=== PATIENT | male | born 1945 | race Caucasian/White ===

== ENCOUNTER 2017-03-16 16:36 | Observation (INO) ==
[2017-03-16] MEDS ORDERED: CYANOCOBALAMIN MISC SCH (18:45)
[2017-03-16 18:56] LABS: MANUAL DIFF NEEDED? NO
[2017-03-16 19:08] LABS: BASO% 0.3 % (0.0-0.8); EOS# 0.18 X1000 (0.0-0.7); HEMOGLOBIN 10.3 g/dL (14.0-18.0); LYMPH# 1.52 X1000 (1.2-3.4); LYMPH% 25.5 % (20.5-51.1); MCH 31.8 PG (27-31); MCHC 31.2 g/dL (33-37); MCV 101.9 FL (81-99); MONO# 0.57 X1000 (0.11-0.59); MONO% 9.6 % (1.7-9.3); MPV 10.6 FL (7.4-10.4); NEUT% 61.6 % (42.2-75.2); PLT 148 X1000 (130-400); RBC 3.24 XMIL (4.7-6.1)
[2017-03-16 19:13] LABS: INR 1.08; PROTIME 11.4 Seconds (9.2-11.7)
[2017-03-16 19:20] LABS: ALLEN TEST YES; BE -1.6 mmoll (-3.0-3.0); BLOOD TYPE ARTERIAL; DRAW SITE R RADIAL; O2(CT) 15.2 mL/dL (15.0-23.0); PCO2(98.6) 45 mmHg (35-45); PO2(98.6) 74 mmHg (60-100); SAMPLE BLOOD; SAO2 96.9 % (95.0-100.0); THB 11.4 g/dL (11.5-17.4); pH(98.6) 7.34 (7.35-7.45)
[2017-03-16 19:21] LABS: MODALITY ROOM AIR
[2017-03-16 19:26] LABS: ALBUMIN 3.9 g/dL (3.5-5.0); CALCIUM 8.7 mg/dL (8.8-10.2); POTASSIUM 4.4 mmol/L (3.5-5.1); TOTAL BILIRUBIN 0.33 mg/dL (0.20-1.00); TOTAL PROTEIN 6.6 g/dL (6.3-8.3)
--- NOTE | 2017-03-16 19:42 | Diag Imaging Result Doc PS360 ---
EXAM: CHEST-2 VIEWS HISTORY: SOB TECHNIQUE: COMPARISON: 09/01/2016 FINDINGS: The lungs are well expanded. The heart is not enlarged. The vessels are not distended. There are no infiltrates. No pleural effusions. IMPRESSION: No acute abnormality. Electronically signed by Crispin Cobos 03/16/2017 7:39 PM
[2017-03-16] MEDS: PRAVACHOL PO SCH (20:50)
[2017-03-16] MEDS: CARDIZEM CD PO SCH (20:50)
[2017-03-16] MEDS: APRESOLINE PO SCH (20:50)
[2017-03-16] MEDS: LYRICA PO SCH (20:50)
[2017-03-16] MEDS: ELIQUIS PO SCH (20:51)
[2017-03-16] MEDS: LASIX IV SCH (20:51)
[2017-03-16] MEDS ORDERED: NORCO-10 PO ONE (21:00)
[2017-03-16] MEDS: HUMULIN R SUBQ SCH ×2 (21:40→21:41)
--- NOTE | 2017-03-16 22:31 | HISTORY AND PHYSICAL ---
CHIEF COMPLAINT: 1. Recurrent falls, sustained injuries to the knees, right abdomen, lower back, declining of activities of daily living. 2. Shortness of breath on exertion. 3. Paroxysmal nocturnal dyspnea, orthopnea. Swelling of feet. 4. Worsening of the kidney function tests. Creatinine was more than 3.4. 5. Increasing potassium 5.9. Given Kayexalate. HISTORY OF PRESENT ILLNESS: He is a 71-year-old white gentleman, had a physical done last week with abnormal lab results. He was given Kayexalate. He was brought in by the caregiver, so- called with above problems. He complains of dyspnea on exertion, PND, orthopnea. In my office he has elevated JVD with some crackles in the left base and swelling of feet. He was treated as an outpatient with increased Lasix and Kayexalate. Since then, he is feeling weak and family wants to be admitted to the hospital for monitoring diastolic heart failure as well as chronic kidney disease. He has a stage 4 chronic kidney disease. Needs further evaluation. As a result, he has been hospitalized. PAST MEDICAL HISTORY: Hypertension, gout, chronic kidney disease, hypothyroidism, chronic peripheral neuropathy, acid reflux disease, metabolic syndrome, type 2 diabetes, atrial fibrillation, osteoarthritis. PAST SURGICAL HISTORY: Back surgery 2001, cervical fusion, carpal tunnel syndrome on the left wrist. MEDICATIONS IN THE OFFICE: Allopurinol 100 two tablets daily, multivitamin 1 tablet daily, lisinopril 10 daily, hydralazine 10, 3 times daily, Ticlid was given, Lyrica 100 twice daily, omeprazole 20 daily, tramadol 50 t.i.d. ALLERGIES: Levaquin. SOCIAL HISTORY: . Retired. Lives in [place]. No smoking. No alcohol. FAMILY HISTORY: Mom of dementia at the age of 58. Father of liver cancer at 72. HEALTH MAINTENANCE: Flu vaccine 2015, pneumococcal vaccine 2012, tetanus 2014, last prostate exam February 2017, PSA February 2011, colonoscopy 2018. Last blood workup in my office, creatinine 3.4, potassium 6, BUN 66. A1c 6.1, PSA 1.9. Thyroid function tests were normal. Uric acid 9.1. REVIEW OF SYSTEMS: HEENT: No headache. No vision problem. No earache. No sore throat. Neck: No goiter. No lymphadenopathy. No bruit. Cardiopulmonary: No chest pain, shortness of breath, PND, orthopnea. Patient had cardioversion on 07/21/2016, for irregular heart beat. Last myocardial perfusion scan 2014 which was negative. Prior to that, last cardiac catheterization, moderate disease in the distal LAD 2012. GI: No nausea, vomiting, diarrhea from Kayexalate. : No history of hesitancy, frequency. Bladder scan revealed 62 mL. Extremities: Swelling of feet. Joint, has arthritis pain. Neurologic: No focal symptoms or weakness or slurring of speech. PHYSICAL EXAMINATION: VITAL SIGNS: Afebrile. Vitals are stable. Blood pressure is 180/105, 5 feet 11, 258 pounds. HEENT: Atraumatic, normocephalic. Pupils equal, react to light. EOMI noted. TMs are normal. Nose and throat within normal limits. NECK: Supple. No lymphadenopathy. No carotid bruit. CHEST: Bilateral air entry with rhonchi and rales in the left side. HEART: Sounds are regular. No murmurs. ABDOMEN: Belly is soft, obese, nontender. Good bowel sounds. RECTAL: Normal prostate. Heme-negative stool. EXTREMITIES: 2+ pedal edema in both legs. Joints, there are osteoarthritic changes noted. NEUROLOGIC: No obvious deficits noted. Speech is normal. INVESTIGATIONS: CBC: White cell count 5.9, hematocrit 33, platelets 148,000. PT 11, INR 1. ABG: PH is 9.34, pCO2 45, PO2 74, bicarb 23 on room air. SMA7: Sodium 142, potassium 4.4, chloride 105, BUN 36, creatinine 2.2, glucose 124. Troponin is normal. CRP is high. ProBNP 2600. Chest x-ray stable, elevation of left hemidiaphragm. EKG is pending. ASSESSMENT AND PLAN: 1. A 72-year-old white gentleman, admitted to the hospital with shortness of breath, swelling of legs with underlying intermittent atrial fibrillation and diastolic heart failure with underlying chronic kidney disease. Plan is fluid restrictions. 2. Intravenous Lasix. 3. Chronic kidney disease. Evaluate postvoid residual urine 60 mL, 24 hour urine for creatinine clearance and proteinuria. 4. Uncontrolled hypertension. The patient has been on Cardizem. Increase the hydralazine 50 t.i.d. and Lasix. 5. Vitamin D deficiency on cholecalciferol once daily. 6. History of gout, uric acid level 9.2, increase the Zyloprim 200 mg daily. 7. Type 2 diabetes on glipizide, well controlled. Follow up on sliding scale with insulin coverage. 8. Hypothyroidism. On Synthroid. 9. Hyperlipidemia. On Pravachol. 10. Chronic pain on Lyrica. 11. Paroxysmal atrial fibrillation. Currently in sinus. Continue on Cardizem and Eliquis. 12. Hyperkalemia. Recently given Kayexalate. Improving. Unable to tolerate COURTNEY inhibitors. We will follow up. cc: Mike Dudley MD
[2017-03-16 22:32] LABS: URINE MICRO REVIEW NEEDED? NO; URINE SOURCE VOIDED
[2017-03-16 22:34] LABS: BILIRUBIN URINE NEGATIVE (NEGATIVE); BLOOD URINE NEGATIVE (NEGATIVE); COLOR YELLOW; GLUCOSE URINE NEGATIVE (NEGATIVE); LEUKOCYTES URINE NEGATIVE (NEGATIVE); NITRITE URINE NEGATIVE (NEGATIVE); PROTEIN URINE TRACE mg/dL (NEGATIVE); SP GRAVITY URINE 1.006; TURBIDITY URINE CLEAR (CLEAR); UROBILINOGEN URINE NORMAL (NORMAL)
[2017-03-16 22:35] LABS: UR EPITHELIAL CELLS <10 /HPF (<10); URINE BACTERIA NEGATIVE /HPF; URINE RBC <10 /HPF (<10); URINE WBC <10 /HPF (<10)
[2017-03-17] MEDS: LASIX IV SCH ×2 (06:31→17:34)
[2017-03-17] MEDS: SYNTHROID PO SCH (06:31)
[2017-03-17] MEDS: HUMULIN R SUBQ SCH ×5 (06:45→21:45)
[2017-03-17] MEDS ORDERED: MEDROL DOSEPAK PO SCH (08:45)
[2017-03-17] MEDS ORDERED: APRESOLINE PO SCH (09:00)
[2017-03-17] MEDS ORDERED: ZYLOPRIM PO SCH (09:00)
[2017-03-17] MEDS: ELIQUIS PO SCH ×2 (09:20→19:55)
[2017-03-17] MEDS: VICON-C PO SCH (09:20)
[2017-03-17] MEDS: VITAMIN D PO SCH (09:20)
[2017-03-17] MEDS: LYRICA PO SCH ×3 (09:20→21:28)
[2017-03-17] MEDS: APRESOLINE PO SCH ×4 (09:20→21:28)
[2017-03-17] MEDS: ZYLOPRIM PO SCH (09:20)
--- NOTE | 2017-03-17 11:12 | EKG Report ---
Test Performed on : 03/17/2017 08:38:06 AM Test Reason : chest pain Blood Pressure : / mmHG Vent. Rate : 071 BPM Atrial Rate : 071 BPM P-R Int : 214 ms QRS Dur : 090 ms QT Int : 418 ms P-R-T Axes : 043 011 051 degrees QTc Int : 454 ms Sinus rhythm. with marked sinus arrhythmia. with 1st degree AV block. Otherwise normal ECG When compared with ECG of 02-SEP-2016 00:32, Sinus rhythm. has replaced Atrial flutter. Confirmed by Gurpreet Boss DO ([id number]) on 03/19/2017 1:12:17 PM
[2017-03-17] MEDS: NORCO-5 PO PRN ×2 (11:46→19:52)
[2017-03-17] MEDS: MEDROL PO SCH ×4 (11:50→21:28)
--- NOTE | 2017-03-17 18:04 | CONSULTATION ---
DATE OF CONSULTATION: 03/17/2017 REASON FOR ADMISSION: Multiple falls, shortness of breath, PND, hyperkalemia. REASON FOR CONSULTATION: Acute on chronic kidney disease. CONSULTING PHYSICIAN: Dr. Dudley. HISTORY OF PRESENT ILLNESS: This is an 72-year-old gentleman known to our service for chronic kidney disease stage 3 with a baseline creatinine of 2.3 now for at least 3 years. He was last seen in our office in February of this year. At that time his creatinine was 2.3. He did have an elevated potassium that was thought perhaps to supplement use. That was discontinued. He was placed on a potassium reduction diet. He was to have follow-up labs within a couple of weeks. Apparently he did have a follow-up labs at his primary care's office and potassium was still 5.9. He was treated with Kayexalate at that time. In the last couple of weeks he has been having issues with dyspnea on exertion, PND, and orthopnea, along with some worsening edema to his lower extremities. He had been treated as an outpatient by increasing his Lasix. He continued to have weakness and had begun having several falls over the last several days. Because of this, the family brought him in to the hospital for further workup and treatment. He was found to have some diastolic heart failure and underlying chronic kidney disease. He was admitted to the hospital for further workup and treatment. This morning, the patient's creatinine remains at 2.2. He states that his breathing is much improved. He still continues to have some swelling to the lower extremities although this has improved since admission. He denies any other chest pain. Continues to have just mild shortness of breath. He is on a routine nasal cannula at this time. No other change in bowel or bladder output. PAST MEDICAL HISTORY: 1. Hypertension. 2. Gout. 3. Chronic kidney disease stage 3 with a baseline creatinine of 2.3 with a high of 3.1 over the last 3 years. His last creatinine was 2.3 within the last 4 weeks. 4. Hypothyroidism. 5. Chronic peripheral neuropathy. 6. Acid reflux disease. 7. Metabolic syndrome. 8. Type 2 diabetes. 9. Atrial fibrillation. 10. Osteoarthritis. 11. Diastolic heart failure. PAST SURGICAL HISTORY: 1. Back surgery, cervical fusion. 2. Carpal tunnel syndrome, treated, to the left wrist. ALLERGIES: Levaquin. MEDICATIONS: Home medications are listed as: 1. Allopurinol. 2. Lisinopril. 3. Hydralazine. 4. Cardizem. 5. Glipizide. 6. Eliquis. 7. Lyrica. 8. Omeprazole. 9. Tramadol. 10. Multivitamin. FAMILY HISTORY: Dementia and liver cancer. SOCIAL HISTORY: He is . No smoking. No ETOH or illicit drug use. He is independent. REVIEW OF SYSTEMS: Positive for orthopnea, PND, shortness of breath, increased lower extremity edema. Negative otherwise. PHYSICAL EXAMINATION: Vital Signs: Temperature 97.5 degrees, pulse 70, respiratory rate 18, blood pressure 123/74. Intake was not measured. Output has been 1 L since admission. General: This is an elderly gentleman sitting up on the side of the bed. He is awake and alert. No acute distress. He is able to give an appropriate history and assists with exam. HEENT: Normocephalic, atraumatic. JHOAN, conjunctivae are pink. His oral mucosa is moist. Neck: Supple. Trachea midline. He has a trace JVD. Cardiovascular: Regular rate and rhythm. There is no murmur or gallop appreciated. Pulmonary: He has equal excursion. He has some rales bilaterally. There is no wheeze noted. He remains on O2 supplementation via nasal cannula. He has no increased work of breathing during conversation. Abdomen: Soft, with positive bowel sounds. Nontender. : Not inspected. He is voiding. Extremities: He has 2 + pretibial edema. He has greater dependent edema pedal bilaterally. He has vascular changes noted to the legs. He is moving all extremities and has been ambulatory with assistance. Integument: Skin is pale, warm and dry. There are no rashes noted. He has no weeping noted to the edema. Neuro: Grossly nonfocal. LAB DATA: WBC of 5.9, hemoglobin 10.3, hematocrit 33.0, platelet count 148, 000. Sodium 142, potassium 4.4, CO2 24, BUN 36, creatinine 2.2. Calcium 8.7, albumin 3.9. He had a urinalysis that was negative aside for some trace protein. IMAGING: His chest x-ray this morning was stable with elevation of the left hemidiaphragm. ASSESSMENT AND PLAN: 1. Chronic kidney disease. The patient's creatinine is currently at his historical baseline. He has no indication for intervention at this time. We agree with his current therapy. We will continue to monitor his labs daily. 2. Diastolic heart failure. The patient has been on Lasix. Continue fluid restriction. 3. Hyperkalemia. His potassium is in target today. His COURTNEY inhibitors have been held. Likely he will have to utilize a different antihypertensive in the future secondary to his issues as an outpatient with hyperkalemia on this drug. We will continue to hold potassium supplements as well. 4. Electrolytes, acid-base balance. These are acceptable. 5. Anemia. He does have some trace anemia with a hemoglobin of 10.3. Check iron stores if that has not been done. 6. Hypertension, currently controlled. 7. Fluid volume. We will ask for strict I's and O's. Seen, data reviewed, discussed with Kg Johnson on 03/17/17. I agree with the above assessment and plan of care. rg Dictated by TARA Livingston for Jus Villarreal MD cc: MD Mike Briceno MD [facility]
[2017-03-17] MEDS: CARDIZEM CD PO SCH ×2 (19:56→21:27)
[2017-03-17] MEDS: PRAVACHOL PO SCH ×2 (19:56→21:27)
--- NOTE | 2017-03-17 20:14 | PROGRESS NOTE ---
DATE: 03/17/2017 SUBJECTIVE: The patient complains of foot pain due to gout. I discussed with Dr. Villarreal about hyperkalemia, renal function tests worsening after lisinopril. The patient denies of any headache or speech problems. REVIEW OF SYSTEMS: None reported. OBJECTIVE: Vital signs: On examination, blood pressure running a little bit high. Vitals are stable. Input and output: -450. HEENT: Within normal limits. Chest: Clear. Heart: Sounds are regular. Abdomen: Belly is soft, nontender. Good bowel sounds. Extremities: Feet examination, he has osteoarthritic changes and inflamed 1st MTP joint on the right side. INVESTIGATION: Uric acid 9.2, creatinine is 2.2 potassium and CBC were normal. EKG normal sinus. Nothing acute. ASSESSMENT AND PLAN: 1. Chronic kidney disease, worsening with lisinopril. 2. Hyperkalemia, worsening with lisinopril, discontinued. 3. Gout. Uric acid 9.1. Increase allopurinol 300 mg daily. We will use a Medrol Dosepak and hydrocodone. 4. Chronic kidney disease. Follow up on 24 hour urine studies. 5. Diastolic heart failure. Stable. Control the blood pressure by increasing the hydralazine instead of lisinopril due to side effects. Continue on Cardizem, Lasix and hydralazine. 6. Hypothyroidism. On Synthroid. LEVEL OF DOCUMENTATION: [address] Villarreal and follow up. cc: Mike Dudley MD
[2017-03-18 01:34] LABS: UR CREATININE 25.9 mg/dL (14-26); UR PROTEIN 12.4 mg/dL
[2017-03-18] MEDS: NORCO-5 PO PRN (01:58)
[2017-03-18] MEDS: HUMULIN R SUBQ SCH ×4 (01:59→16:20)
[2017-03-18] MEDS: SYNTHROID PO SCH (06:30)
[2017-03-18] MEDS: LASIX IV SCH (06:30)
[2017-03-18] MEDS: ELIQUIS PO SCH ×2 (06:31→08:50)
[2017-03-18] MEDS ORDERED: PREVNAR 13 IM ONE (08:38)
[2017-03-18] MEDS: APRESOLINE PO SCH ×3 (08:45→16:13)
[2017-03-18] MEDS: LYRICA PO SCH (08:48)
[2017-03-18] MEDS: ZYLOPRIM PO SCH (08:50)
[2017-03-18] MEDS: VICON-C PO SCH (08:50)
[2017-03-18] MEDS: VITAMIN D PO SCH (08:50)
--- NOTE | 2017-03-18 10:02 | PROGRESS NOTE ---
DATE: 03/18/2017 SUBJECTIVE: He is feeling well today. He is lying at 30 degrees with no shortness of breath. He has been ambulatory. No chest pain, etc. OBJECTIVE: Vital Signs: Blood pressure 105/54, heart rate 68, respirations 12, afebrile. Intake 900 mL. Output 2.3 L. General: Obese white male, in no acute distress. Skin: Warm and dry. HEENT: Conjunctivae are pink. Oropharynx is dry. Neck: Neck veins are not visible. Heart: Regular without gallops or murmurs. Lungs: Have equal breath sounds. No crackles or wheezes. Abdomen: Obese and soft. Bowel sounds are present. Extremities: Have no edema, clubbing, or cyanosis. LABORATORY DATA: Creatinine 2.2. IMPRESSIONS: 1. Hyperkalemia. Resolved. 2. Acute kidney injury in the context of newly started COURTNEY inhibitor. He is back to his baseline. Okay to discharge without restarting his COURTNEY inhibitor. We will address this as an outpatient in the future. 3. Congestive heart failure. Compensated. cc: MD Mike Briceno MD
[2017-03-18] MEDS: MEDROL PO SCH ×3 (11:54→16:12)
[2017-03-18 15:03] VITALS: BP 125/72
--- NOTE | 2017-03-20 18:51 | DISCHARGE SUMMARY ---
ADMISSION DATE: 03/16/2017 DISCHARGE DATE: 03/18/2017 DISCHARGING DIAGNOSIS: Shortness of breath due to worsening of kidney function tests with chronic kidney disease due to lisinopril. SECONDARY DIAGNOSES: 1. Hyperkalemia due to lisinopril. 2. Diastolic congestive heart failure. Stable. 3. Hypertension. 4. Gout. 5. Chronic kidney disease stage 3. 6. Hypothyroidism. 7. Chronic peripheral neuropathy. 8. Acid reflux disease. 9. Type 2 diabetes. 10. Paroxysmal atrial fibrillation. 11. Osteoarthritis with worsening of gout. CONSULTS: Dr. Villarreal. BRIEF HISTORY: Please see the H and P that was done on 03/16/2017. In brief, he is a 71-year-old white gentleman, who was evaluated in my office on 03/11/2017 for followup from annual exam. He was seen prior with Dr. Villarreal. He has high blood pressure. He was started on lisinopril. After 1 month the patient developed worsening of the swelling of feet, dyspnea on exertion, PND, orthopnea. His baseline creatinine was 2.2. It has gone up to 3.4. Potassium was 6. He was given Kayexalate causing diarrhea. He was brought in by caregiver that he is complaining of weight gain, unable to improve with Lasix. Next he also had a fall, sustained bilateral abrasions of the knee as well as in the lower back. He was not able to walk from my office. As a result, he has been hospitalized. HOSPITAL COURSE: He was given a fluid restriction, IV Lasix and discontinued lisinopril. I did increase the hydralazine from 10 mg to 15 mg t.i.d. Blood pressure is adequately control. 24 hour urine studies were done for creatinine clearance as well as protein. He had [address] Villarreal was consulted. I did communicate with him about changing medications. Rest of the hospital course was uneventful. Chest x-ray was stable. He remains in normal sinus. After diuresis with Lasix and controlling the blood pressure his symptoms were much improved. His creatinine came back to normal 2.2 as well as potassium. He complains of exacerbation of gout requiring Medrol Dosepak. He has been on allopurinol 100 mg once a day and uric acid level was 9.1. I did increase the allopurinol to 300 mg daily. All these changes were discussed with the patient as well as consult with Dr. Villarreal. LABORATORIES: At the time of discharge. CBC: White cell count 5.9, hematocrit 33, platelets 148,000. PT 11, INR 1.0. ABG, pH is 7.34, pCO2 45, PO2 74, bicarb 23 on room air. SMA 7: Sodium 142, potassium 4.4, chloride 105, BUN 36, creatinine 2.2, glucose 155. CRP 7.8. ProBNP 2600. Urinalysis is clear. Total urine protein is 620, creatinine clearance 41 mL/minute. He lost about 2.5 L. Chest x-ray was stable. EKG normal sinus, nothing acute. DISCHARGE INSTRUCTIONS FOLLOWS: 1. For diabetes glipizide 10 mg daily, very cautious to get hypoglycemic episodes and Januvia 100 mg daily, and slowly taper off glipizide. 2. Pravastatin 80 mg daily, vitamin B complex 1 tablet daily. Allopurinol increase to 300 mg daily, Cardizem 360 daily, vitamin D 3000 units daily. Eliquis 5 mg p.o. b.i.d. Hydralazine was increased to 50 mg t.i.d. Synthroid 150 mcg daily. Lyrica 100 p.o. b.i.d. Lasix 40 mg daily, Medrol Dosepak and fluid restrictions. 3. Follow up in my office in 2 weeks. cc: MD Jus Trejo MD
== END 2017-03-18 17:39 | disposition home or self-care (01) ==
LOC: INTOOBSV 16:36 → DIRADM 16:36 → 3N 17:21
PROVIDERS: ADMIT Internal Medicine; ATTEND Internal Medicine

== ENCOUNTER 2019-03-20 14:05 | Inpatient (IN) ==
[2019-03-20] MEDS ORDERED: NS 1,000 ML ONE (14:07)
[2019-03-20] MEDS ORDERED: NS 1,000 ML IV ONE ×3 (14:10→18:49)
[2019-03-20 14:30] LABS: BASO# 0.03 X1000 (0.0-0.2); BASO% 0.2 % (0.0-0.8); EOS# 0.23 X1000 (0.0-0.7); EOS% 1.6 % (0.0-10.0); HEMATOCRIT 29.4 % (42.0-52.0); HEMOGLOBIN 9.9 g/dL (14.0-18.0); IMM GRAN# 0.05 X1000 (0.0-0.04); IMM GRAN% 0.3 % (0.0-0.5); LYMPH# 0.87 X1000 (1.2-3.4); LYMPH% 5.9 % (20.5-51.1); MCH 32.6 PG (27-31); MCHC 33.7 g/dL (33-37); MCV 96.7 FL (81-99); MONO# 1.44 X1000 (0.11-0.59); MONO% 9.8 % (1.7-9.3); MPV 10.2 FL (7.4-10.4); NEUT# 12.07 X1000 (1.4-6.5); NEUT% 82.2 % (42.2-75.2); PLT 176 X1000 (130-400); RBC 3.04 XMIL (4.7-6.1); RDW 13.9 % (11.5-14.5); WBC 14.69 X1000 (4.8-10.8)
[2019-03-20] MEDS ORDERED: ZOSYN 3.375 GM in NS 50 ML IV ONE (14:31)
[2019-03-20 15:20] LABS: BILIRUBIN URINE NEGATIVE (NEGATIVE); BLOOD URINE TRACE (NEGATIVE); CLARITY SL. CLOUDY (CLEAR); COLOR YELLOW; GLUCOSE URINE NEGATIVE (NEGATIVE); KETONE URINE NEGATIVE (NEGATIVE); LEUKOCYTES URINE 2+ (NEGATIVE); NITRITE URINE NEGATIVE (NEGATIVE); PROTEIN URINE 1+(30 mg/dL) mg/dL (NEGATIVE); SP GRAVITY URINE 1.005; UROBILINOGEN URINE NORMAL
[2019-03-20 15:23] LABS: ALBUMIN 3.1 g/dL (3.5-5.0); CALCIUM 8.5 mg/dL (8.8-10.2); CREATININE 5.1 mg/dL (0.7-1.2); POTASSIUM 6.1 mmol/L (3.5-5.1); TOTAL BILIRUBIN 0.5 mg/dL (0.20-1.00); TOTAL PROTEIN 5.7 g/dL (6.3-8.3)
[2019-03-20] MEDS ORDERED: HUMULIN R (PARKWAY) IV ONE (15:27)
[2019-03-20] MEDS ORDERED: D50W SYRINGE IV ONE (15:27)
--- NOTE | 2019-03-20 15:38 | Diag Imaging Result Doc PS360 ---
EXAM: CHEST-1 VIEW 03/20/2019 HISTORY: sepsis TECHNIQUE: AP upright portable at 1537 COMMENT: There is cardiomegaly. There has been no appreciable change since the previous study of 02/26/2019. IMPRESSION: Cardiomegaly. Electronically signed by José Miguel Mercer 03/20/2019 3:36 PM
--- NOTE | 2019-03-20 15:43 | Diag Imaging Result Doc PS360 ---
EXAM: CT ABDOMEN/PELVIS W/O CONTRAST HISTORY: flank pain TECHNIQUE: Routine without contrast. COMPARISON: None. FINDINGS: There is right breast attenuation similar to prior. There is bilateral pleural fluid or thickening thickening at the lung bases also similar to prior study. No pericardial effusion. Evaluation of the solid visceral organs and bowel is limited by lack of enteric and IV contrast. There is hepatic steatosis. No calcified gallstones are appreciated. There is left nephrolithiasis similar to prior. There is left perirenal soft tissue stranding which may indicate pyelonephritis or recently passed stone. No ureteral calcifications are identified. There is a Werner catheter within the bladder. There is no free fluid, free air, or bowel distention. There is moderate constipation. The appendix appears normal. The abdominal aorta is of normal caliber. There are postsurgical changes lumbar spine with rods and screws and severe degenerative arthropathy. IMPRESSION: 1.Left perirenal soft tissue stranding which may indicate pyelonephritis or recently passed stone. No acute hydronephrosis. 2.Unchanged punctate left nephrolithiasis 3.Moderate constipation. 4.Hepatic steatosis. 5.Postsurgical changes lumbar spine with severe degeneration. 6.Bilateral pleural effusions versus thickening at the lung bases. This exam was performed using automated exposure control, adjustment of mA or kV according to patient size, and/or use of iterative reconstruction technique. Electronically signed by Shala Hendricks 03/20/2019 3:41 PM
[2019-03-20 15:57] LABS: URINE BACTERIA 4+ /HFP; URINE CAST NONE SEEN /LPF; URINE CRYSTAL NONE SEEN /HPF; URINE EPITHELIAL CELLS >10 /HPF (<10); URINE SOURCE CLEAN CATCH; URINE WBC TNTC /HPF (<10); URINE YEAST NONE SEEN /HPF
--- NOTE | 2019-03-20 16:17 | PROVIDER DOCUMENTATION ---
This chart was entered by Shereen Loya Scribe, acting as scribe for Maria Teresa Chung MD. HPI-Abdominal Pain/GI Problem - General Chief Complaint: Abdominal Pain Stated Complaint: STOMACH ACHE Time Seen by Provider: 03/20/19 14:05 Source: patient, family, EMS Allergies/Adverse Reactions: Patient Allergies Allergy/AdvReac Type Severity Reaction Status Date / Time levofloxacin [From Levaquin] Allergy ITCHING Verified 04/01/18 11:40 surgical tape AdvReac RASH Uncoded 07/19/18 14:05 Home Medications: Home Medication List Medication Instructions Recorded Confirmed Last Taken Type Allopurinol [Zyloprim] 100 mg PO QAM 08/18/17 02/26/19 03/31/18 History Diltiazem HCl [Cartia Xt] 120 mg PO DAILY 08/18/17 04/01/18 08/17/17 History Gabapentin 100 mg PO TID 08/18/17 04/01/18 04/01/18 09:00 History Glipizide 10 mg PO QAM 08/18/17 04/01/18 04/01/18 09:00 History Polyethylene Glycol 3350 [Miralax] 17 gm PO DAILY powder, packet 01/29/1803/31/18 10:00 Rx Docusate Sodium [Colace] 200 mg PO DAILY 03/22/18 04/01/18 03/31/18 History Finasteride 5 mg PO QAM 03/22/18 04/01/18 04/01/18 09:00 History Levothyroxine [Synthroid] 150 microgm PO QAM 03/22/18 02/26/19 04/01/18 06:00 History Tamsulosin [Flomax] 0.4 mg PO BID 03/22/18 04/01/18 04/01/18 09:00 History Tramadol HCl 50 mg PO TID 03/22/18 04/01/18 04/01/18 09:00 History Cyclobenzaprine [Flexeril] 5 mg PO TID 04/01/18 04/01/18 Unknown History Methylprednisolone 4 mg PO DAILY 04/01/18 04/01/18 04/01/18 06:00 History PRAVAstatin [Pravachol] 40 mg PO QHS 04/01/18 04/01/18 03/31/18 21:00 History Bisacodyl 10 mg RC DAILY PRN 02/26/19 02/26/19 Unknown History Bisacodyl [Dulcolax] 10 mg NM BID #20 supp 02/26/19 Unknown Rx Diphenhydramine HCl 1 tab PO Q6H PRN 02/26/19 02/26/19 Unknown History Duloxetine [Cymbalta] 30 mg PO DAILY 02/26/19 02/26/19 Unknown History Furosemide 20 mg PO DAILY 02/26/19 02/26/19 Unknown History Hydralazine [Apresoline] 25 mg PO Q8HR 02/26/19 02/26/19 Unknown History Hydrocodone Bit/Acetaminophen 1 tab PO Q6H PRN 02/26/19 02/26/19 Unknown History [Hydrocodon-Acetaminophn 10-325] Pantoprazole [Protonix] 40 mg PO DAILY 02/26/19 02/26/19 Unknown History Psyllium Husk [Psyllium Fiber] 0.52 gm PO QHS 30 Days #100 cap 02/26/19 Unknown Rx Sennosides [Senna] 1 cap PO QHS 02/26/19 02/26/19 Unknown History - History of Present Illness-ABD Nature of Presenting Problems: 74 y/o male presents to ED with diffuse abdominal pain and L flank pain onset yesterday. Pt has had indwelling delgado for 1 year and reports he thinks he has a UTI. Pt states he has not eaten in 3 days. Pt reports breathing exacerbates his pain. Pt is alert and oriented. Abdominal Pain Onset Location: reports: generalized abdomen Pain Radiation: reports: flank (L) Quality of Pain: reports: aching Severity in ED: reports: mild Onset/Duration: reports: 24 hours ago Timing: reports: still present Activities at Onset: reports: none Exposure to sick contacts?: No Modifying Factors: worse with: palpation Associated Symptoms: reports: other (diffuse abdominal pain; L flank pain) Last BM: unsure Dark Stools Present?: reports: none noticed Rectal Bleeding: reports: none Rectal Pain: reports: none Similar Symptoms Previously?: No Recently seen or treated by another doctor?: No Review of Systems - Adult - REVIEW OF SYSTEMS - ADULT Constitutional: denies: chills, fever Eyes: reports: no symptoms reported Ears, Nose, Mouth & Throat: reports: no symptoms reported Cardiovascular: denies: chest pain, palpitations Respiratory: denies: cough, shortness of breath Gastrointestinal: reports: abdominal pain. denies: diarrhea, nausea, vomiting Genitourinary: reports: flank pain (L). denies: incontinence Musculoskeletal: denies: back pain, joint pain Integumentary: reports: no symptoms reported Neurological: denies: dizziness/vertigo, seizure Psychiatric: reports: no symptoms reported Endocrine: reports: no symptoms reported Hematologic/Lymphatic: reports: no symptoms reported Allergic/Immunologic: reports: no symptoms reported All Other Systems: Reviewed and Negative Past History - Adult - PAST MEDICAL HISTORY-ADULT Review of Records: reports: Old Records Reviewed, Nursing Assessment Review, Medications Reviewed Major Childhood Illnesses: reports: denies history Cardiovascular: reports: A-Fib, CHF, HTN, hyperlipidemia Respiratory: reports: sleep apnea Gastrointestinal: reports: GERD Obstetrical/Gynecological: reports: denies history Genitourinary: reports: kidney disease Musculoskeletal: reports: arthritis (rhuematoid), chronic pain, other (gout) Neurological: reports: denies history Endocrine/Immune: reports: Diabetes, RA, thyroid disorder (hypo) Other Conditions: reports: denies history - PRIOR SURGERIES/PROCEDURES Surgical/Procedure History: reports: back/neck (back), other (laminectomy) - IMMUNIZATION STATUS Childhood Immunizations: See Nurse Assessment Flu Vaccine: See Nurse Assessment - FAMILY HISTORY Family History: reviewed, not pertinent - SOCIAL HISTORY Smoking: non-smoker Substance Use: none/never Alcohol Use Frequency: never Living Situation: family Physical Exam-General - PHYSICAL EXAM-ADULT Initial Vital Signs Reviewed: Yes - CONSTITUTIONAL General Appearance: appears well, alert, moderate distress - EYES Eyes: PERRL/EOMI, pink conjunctivae - HEAD, EARS, NOSE, MOUTH & THROAT HENMT: moist mucous membranes, dental decay - NECK Neck: non-tender, full range of motion - RESPIRATORY Respiratory: chest non-tender, lungs clear, normal breath sounds - CARDIOVASCULAR Cardiovascular: normal peripheral pulses, regular rate, rhythm - GASTROINTESTINAL (ABDOMEN) Abdominal Exam: normal bowel sounds, soft, tenderness (diffuse) - MUSCULOSKELETAL Back Exam: normal inspection, no CVA tenderness, no vertebral tenderness Extremity: normal range of motion, non-tender, normal gait, swelling (bilateral lower extremities) - SKIN Integumentary: normal color, warm/dry, ecchymosis (to abdomen), swelling (of bilateral lower extremities) - NEUROLOGIC Neurologic: grossly normal - PSYCHIATRIC Psych/Mental Status: normal mood/affect, normal thought content, normal thought process, oriented x 3 Progress - PLAN OF CARE/RESULTS Progress/Plan/Lab Results: Vital Signs - 8 hr 03/20/19 14:05 Temperature 98.3 F Pulse Rate 83 Respiratory Rate 18 Blood Pressure 75/55 O2 Sat by Pulse Oximetry 95 Orders Category Date Time Status Cardiac Monitoring DIRECTED Care 03/20/19 14:10 Active IV Insertion ORDERED Care 03/20/19 14:10 Active Notify MD of + Sepsis Screen NOW Care 03/20/19 14:10 Active Notify Physician As Ordered Care 03/20/19 14:10 Active Saline Loc DIRECTED Care 03/20/19 14:06 Active NPO Diet 03/20/19 14:06 Active CHEST-1 VIEW [RAD] Stat Exams 03/20/19 14:[address] ABDOMEN/PELVIS W/O CONTRAST [CT] Stat Exams 03/20/19 14:06 Ordered AMYLASE [CHEM] Stat Lab 03/20/19 14:06 Ordered BLOOD CULTURE [BLDCUL] Stat Lab 03/20/19 14:10 Uncollected CBC WITH ELECTRONIC DIFF [HEME] Stat Lab 03/20/19 14:06 Ordered CK PROFILE [SP CHEM] Stat Lab 03/20/19 14:10 Uncollected COMPREHENSIVE METABOLIC PANEL [CHEM] Stat Lab 03/20/19 14:06 Uncollected LACTATE, PLASMA [CHEM] Q3H Lab 03/20/19 14:15 Uncollected LACTATE, PLASMA [CHEM] Q3H Lab 03/20/19 17:15 Uncollected LACTATE, PLASMA [CHEM] Q3H Lab 03/20/19 20:15 Uncollected LIPASE [CHEM] Stat Lab 03/20/19 14:06 Uncollected PTT [COAG] Stat Lab 03/20/19 14:10 Uncollected TROPONIN T Stat Lab 03/20/19 14:[address] W/POSS RFLX CULT [URINALYSIS] Stat Lab 03/20/19 14:06 Uncollected 0.9% Sodium Chloride Inj [Ns] 1,000 ml Med 03/20/19 14:07 Discontinued .ROUTE As directed 0.9% Sodium Chloride Inj [Ns] 1,000 ml Med 03/20/19 14:10 Active IV 999 mls/hr Oxygen Device Stat Oth 03/20/19 14:10 Active Laboratory Tests 03/20/19 03/20/19 03/20/19 14:20 14:20 14:20 WBC 14.69 H RBC 3.04 L Hgb 9.9 L Hct 29.4 L MCV 96.7 MCH 32.6 H MCHC 33.7 RDW Std Deviation 13.9 Plt Count 176 MPV 10.2 Immature Gran % (Auto) 0.3 Neut % (Auto) 82.2 H Lymph % (Auto) 5.9 L Donley % (Auto) 9.8 H Eos % (Auto) 1.6 Baso % (Auto) 0.2 Immature Gran # (Auto) 0.05 H Neut # (Auto) 12.07 H Lymph # (Auto) 0.87 L Donley # (Auto) 1.44 H Eos # (Auto) 0.23 Baso # (Auto) 0.03 PTT (Actin FS) Sodium 125 L Potassium 6.1 H* Chloride 85 L Carbon Dioxide 26 Anion Gap 14 BUN 99 H Creatinine 5.1 H Estimated GFR/1.73 m2 11 BUN/Creatinine Ratio 19 Glucose 116 H Calculated Osmolality 283 Calcium 8.5 L Total Bilirubin 0.50 AST 22 ALT 13 Alkaline Phosphatase 116 Creatine Kinase 176 Troponin T Total Protein 5.7 L Albumin 3.1 L Globulin 3.0 Albumin/Globulin Ratio 1.0 Amylase 21 Lipase 19 Plasma Lactate Urine Color Urine Clarity Urine pH Ur Specific [place] Urine Protein Urine Ketones Urine Blood Urine Nitrite Urine Bilirubin Urine Urobilinogen Urine WBC Urine Glucose 03/20/19 03/20/19 03/20/19 14:20 14:20 14:20 WBC RBC Hgb Hct MCV MCH MCHC RDW Std Deviation Plt Count MPV Immature Gran % (Auto) Neut % (Auto) Lymph % (Auto) Donley % (Auto) Eos % (Auto) Baso % (Auto) Immature Gran # (Auto) Neut # (Auto) Lymph # (Auto) Donley # (Auto) Eos # (Auto) Baso # (Auto) PTT (Actin FS) 44.2 H Sodium Potassium Chloride Carbon Dioxide Anion Gap BUN Creatinine Estimated GFR/1.73 m2 BUN/Creatinine Ratio Glucose Calculated Osmolality Calcium Total Bilirubin AST ALT Alkaline Phosphatase Creatine Kinase Troponin T 0.114 H Total Protein Albumin Globulin Albumin/Globulin Ratio Amylase Lipase Plasma Lactate 1.0 Urine Color Urine Clarity Urine pH Ur Specific [place] Urine Protein Urine Ketones Urine Blood Urine Nitrite Urine Bilirubin Urine Urobilinogen Urine WBC Urine Glucose 03/20/19 14:24 WBC RBC Hgb Hct MCV MCH MCHC RDW Std Deviation Plt Count MPV Immature Gran % (Auto) Neut % (Auto) Lymph % (Auto) Donley % (Auto) Eos % (Auto) Baso % (Auto) Immature Gran # (Auto) Neut # (Auto) Lymph # (Auto) Donley # (Auto) Eos # (Auto) Baso # (Auto) PTT (Actin FS) Sodium Potassium Chloride Carbon Dioxide Anion Gap BUN Creatinine Estimated GFR/1.73 m2 BUN/Creatinine Ratio Glucose Calculated Osmolality Calcium Total Bilirubin AST ALT Alkaline Phosphatase Creatine Kinase Troponin T Total Protein Albumin Globulin Albumin/Globulin Ratio Amylase Lipase Plasma Lactate Urine Color YELLOW Urine Clarity SL. CLOUDY A Urine pH 5.0 Ur Specific [place] 1.005 Urine Protein 1+(30 mg/dL) A Urine Ketones NEGATIVE Urine Blood TRACE Urine Nitrite NEGATIVE Urine Bilirubin NEGATIVE Urine Urobilinogen NORMAL Urine WBC 2+ A Urine Glucose NEGATIVE Result Diagrams: 03/20/19 14:20 03/20/19 14:20 - XRAY 1 XRAY Study: Chest Impression: See EMR Report ([facility] - [address] [facility] [address], [place] [address] [facility] - [address] [id number] Department of Imaging Patient: BALWINDER IBRAHIM WADM Date: 03/20/19#: [id number] : 6ADM Status: REG ERAt#: [id number] Age/Sex: 74/MRoom/Bed: Loc: P.ED Ordering Physician: Maria Teresa Chung MD Family Physician: None,PCP Reason for Procedure: sepsis ___ Signed EXAM: CHEST-1 VIEW 03/20/2019 HISTORY: sepsis TECHNIQUE: AP upright portable at 1537 COMMENT: There is cardiomegaly. There has been no appreciable change since the previous study of 02/26/2019. IMPRESSION: Cardiomegaly. Electronically signed by José Miguel Mercer 03/20/2019 3:36 PM 03/20/19 1536 Interpreting Physician: José Miguel Mercer MD Dictated Date/Time: 03/20/19 1535 cc: Maria Teresa Chung MD; None,PCP) - CT/MRI 1 CT Study: Abdomen, Pelvis Impression: See EMR Report ([facility] - [address] [facility], [address], [place] [address] [facility] - [address] [place] [address] Department of Imaging Patient: BALWINDER IBRAHIM WADM Date: 03/20/19#: [id number] : 1945DM Status: [facility]#: [id number] Age/Sex: 74/MRoom/Bed: Loc: P.ED Ordering Physician: Maria Teresa Chung MD Family Physician: None,PCP Reason for Procedure: flank pain Signed EXAM: CT ABDOMEN/PELVIS W/O CONTRAST HISTORY: flank pain TECHNIQUE: Routine without contrast. COMPARISON: None. FINDINGS: There is right breast attenuation similar to prior. There is bilateral pleural fluid or thickening thickening at the lung bases also similar to prior study. No pericardial effusion. Evaluation of the solid visceral organs and bowel is limited by lack of enteric and IV contrast. There is hepatic steatosis. No calcified gallstones are appreciated. There is left nephrolithiasis similar to prior. There is left perirenal soft tissue stranding which may indicate pyelonephritis or recently passed stone. No ureteral calcifications are identified. There is a Delgado catheter within the bladder. There is no free fluid, free air, or bowel distention. There is moderate constipation. The appendix appears normal. The abdominal aorta is of normal caliber. There are postsurgical changes lumbar spine with rods and screws and severe degenerative arthropathy. IMPRESSION: 1.Left perirenal soft tissue stranding which may indicate pyelonephritis or recently passed stone. No acute hydronephrosis. 2.Unchanged punctate left nephrolithiasis 3.Moderate constipation. 4.Hepatic steatosis. 5.Postsurgical changes lumbar spine with severe degeneration. 6.Bilateral pleural effusions versus thickening at the lung bases. This exam was performed using automated exposure control, adjustment of mA or kV according to patient size, and/or use of iterative reconstruction technique. El ectronically signed by Shala Hendricks 03/20/2019 3:41 PM 03/20/19 1541 Interpreting Physician: Shala Hendricks MD Dictated Date/Time: 03/20/19 1533 cc: Maria Teresa Chung MD; None,PCP) - CONSULTS/PCP/HOSPITALIST Notification #1 *Consult/PCP/Hospitalist*: Dr. Cruz Time Discussed: 15:25 Reason/Comments: Kidney failure, hyperkalemia, uremia Consult Disposition: Admit #2 Consult: Dr Dudley Time Discussed: 16:06 Consult Disposition: Admit (transfer to [facility]) Departure - Departure Date of Disposition Decision: 03/20/19 Time of Disposition Decision: 15:31 DIAGNOSIS: Uremia, Hyperkalemia Kidney failure Qualifiers: Renal failure chronicity: unspecified chronicity Qualified Code(s): N19 - Unspecified kidney failure Disposition: ADMITTED INPATIENT 09 Certified Medical Emergency: Emergent Condition: Poor Referrals and Follow-Ups: None,PCP [Primary Care Provider] - - Critical Care Note This patient required my direct & personal management of CC.: Yes Total Time (mins): 35 Critical Care Statement: This patient required my direct personal management to treat or rule out processes, the absence of which, could potentiallly result in sudden, clinically significant life or limb threatening deterioration. Attestation - Physician/ ZARI Attestation Patient care was provided by Advanced Practice Provider:: No The physician spent face to face time with patient:: Yes Advanced Practice Provider documentation review:: Supervising physician onsite and consulted in the evaluation and care of this patient. The physician did have a face to face encounter with the patient. This chart was documented by the indicated scribe, (Shereen Loya Scribe) and accurately reflects the services I performed and decisions made by , Maria Teresa Chung MD, as attested by the provider's signature.
[2019-03-20] MEDS ORDERED: ZOFRAN IV PRN (17:26)
[2019-03-20] MEDS ORDERED: KAYEXALATE PO ONE (18:47)
[2019-03-20] MEDS ORDERED: SODIUM CHLORIDE 0.9% INJ SCH (19:00)
[2019-03-20] MEDS: NORCO-10 PO PRN (19:36)
[2019-03-20] MEDS ORDERED: NEXIUM IV SCH (20:00)
[2019-03-20] MEDS: LOVENOX SUBQ SCH (22:24)
[2019-03-20] MEDS: APRESOLINE PO SCH (22:24)
[2019-03-20] MEDS: HUMALOG SUBQ SCH (22:26)
--- NOTE | 2019-03-20 23:46 | HISTORY AND PHYSICAL ---
CHIEF COMPLAINT: Abdominal pain, stomach ache, mostly on the left suprapubic area. HPI: He is a 74-year-old white male seen in the emergency room with diffuse abdominal pain, left flank pain. He was seen 2 weeks ago. The patient was found to have possible hydro on the left side. Recently passed the stone and he had a Werner was placed, worsening of renal function tests. His baseline creatinine around 2.4. Today is 5.1, BUN is 90, potassium is high. Basically transferred to [facility]. He has worsening of acute kidney injury with underlying chronic renal insufficiency. He was not seen since last March. PAST MEDICAL HISTORY: 1. PAF. 2. Metabolic syndrome. 3. Chronic kidney disease. Baseline creatinine 2.6. 4. Hypertension. 5. Acid reflux disease. 6. Gout. 7. Hypothyroidism. 8. Type 2 diabetes. 9. Chronic back pain. PAST SURGICAL HISTORY: Back surgeries x2 by Dr. Walden recently, cervical vertebral fusion, decompression of median nerve. ALLERGIES: Reported to [facility]. SOCIAL HISTORY: , [facility] No smoking. No alcohol. Slowly declining of activities of daily living. Pretty much bedridden. FAMILY HISTORY: Father of liver cancer 72. Mom of dementia 58. HEALTH MAINTENANCE: Flu vaccine 2018, pneumococcal vaccine 13 2016. He has a chronic Werner catheter. MEDICATIONS: Listed are allopurinol 100 mg daily, MiraLAX 17 g daily, Synthroid 175 mcg in the morning, furosemide 20 mg daily, hydralazine 25 q.8, [place] 1 tab q.6 as needed, Protonix 40 daily, senna 1 tablet daily, duloxetine 30 mg daily. REVIEW OF SYSTEMS: HEENT: No headache, no vision problem, no earache, no sore throat. Neck: No goiter. No lymphadenopathy. No bruit. Cardiopulmonary: No chest pain, shortness of breath, PND, orthopnea. GI: Left-sided abdominal pain as a Werner was placed and no constipation. Mild swelling of legs, is bedridden, pressure sores slowly healing on the back. No neurological or weakness. EXAMINATION: Temperature is 97.5 degrees, pulse 50, blood pressure 120/74, 5 feet 11, 239 pounds, 2 L nasal cannula 100% .HEENT: Atraumatic, normocephalic. Pinguecula noted. Neck: Supple. No lymphadenopathy. Chest: Bilateral air entry. Heart: Sounds are regular. Belly: Soft, obese. He is in diapers. Werner was placed, 1+ pedal edema. No obvious neurological deficits. LABS: White cell count 14.69, hematocrit 29.4, platelets 176,000. PTT 44.2. Sodium 125, potassium 6.1, chloride 85, BUN 99, creatinine 5.1, glucose 116, CK was normal. Urinalysis positive for infection. Chest x-ray reported slightly cardiomegaly, nothing acute. CT scan of the abdomen and pelvis left perirenal soft tissue stranding, pyelonephritis, recently passed stone. No acute hydronephrosis, unchanged punctate left nephrolithiasis, moderate constipation, hepatic liver, severe lumbar spine DJD changes. ASSESSMENT AND PLAN: A 74-year-old white male came in with left pyelonephritis, worsening of the kidney injury, underlying chronic renal failure. 1. Hyperkalemia, Kayexalate was given. 2. Chronic kidney disease with acute kidney failure. Gentle hydration. Werner was placed, no hydronephrosis. 3. IV Zosyn. Continue to monitor renal function tests. Appreciated Dr. Villarreal consult. 4. Gout on Zyloprim. 5. Hypertension on hydralazine. 6. Paroxysmal atrial fibrillation, stable. 7. Deep vein thrombosis, gastrointestinal prophylaxis as per order sheet . 8. Constipation on MiraLAX. 9. Hypothyroidism on Synthroid. Zofran for nausea and will closely monitor renal function tests and potassium, declining of activities of daily living due to chronic back pain on Fargo and will follow up. cc: Mike Dudley MD [facility]
[2019-03-21] MEDS: NORCO-10 PO PRN ×3 (02:21→19:00)
[2019-03-21] MEDS: APRESOLINE PO SCH ×3 (04:56→20:14)
[2019-03-21] MEDS: HUMALOG SUBQ SCH ×3 (06:03→20:36)
--- NOTE | 2019-03-21 07:44 | EKG Report ---
Test Performed on : 03/21/2019 07:35:47 AM Test Reason : cp Blood Pressure : / mmHG Vent. Rate : 084 BPM Atrial Rate : 084 BPM P-R Int : 202 ms QRS Dur : 098 ms QT Int : 368 ms P-R-T Axes : 021 -02 067 degrees QTc Int : 434 ms Sinus rhythm. with premature atrial complexes. Possible Lateral infarct (cited on or before 26-FEB-2019) Abnormal ECG When compared with ECG of 26-FEB-2019 13:08, (Unconfirmed) premature atrial complexes. are now present Confirmed by Paulo Cavanaugh MD ([id number]) on 03/26/2019 9:27:52 PM
[2019-03-21 07:54] LABS: BASO# 0.02 X1000 (0.0-0.2); BASO% 0.2 % (0.0-0.8); EOS# 0.41 X1000 (0.0-0.7); EOS% 4.1 % (0.0-10.0); HEMATOCRIT 29.4 % (42.0-52.0); HEMOGLOBIN 9.5 g/dL (14.0-18.0); IMM GRAN# 0.05 X1000 (0.0-0.04); IMM GRAN% 0.5 % (0.0-0.5); LYMPH# 0.77 X1000 (1.2-3.4); LYMPH% 7.7 % (20.5-51.1); MCH 31.5 PG (27-31); MCHC 32.3 g/dL (33-37); MCV 97.4 FL (81-99); MONO# 1.31 X1000 (0.11-0.59); MONO% 13.1 % (1.7-9.3); MPV 10.2 FL (7.4-10.4); NEUT# 7.41 X1000 (1.4-6.5); NEUT% 74.4 % (42.2-75.2); PLT 160 X1000 (130-400); RBC 3.02 XMIL (4.7-6.1); RDW 14.1 % (11.5-14.5); WBC 9.97 X1000 (4.8-10.8)
[2019-03-21 08:24] LABS: CREATININE 4.5 mg/dL (0.7-1.2); POTASSIUM 5.4 mmol/L (3.5-5.1)
[2019-03-21 08:48] LABS: HEMOGLOBIN A1C 6.1 % (4.8-6.0)
[2019-03-21] MEDS: MIRALAX PO SCH (09:25)
[2019-03-21] MEDS: ZYLOPRIM PO SCH (09:25)
[2019-03-21] MEDS: SYNTHROID PO SCH (09:25)
[2019-03-21] MEDS: SODIUM CHLORIDE 0.9% INJ SCH (09:25)
[2019-03-21] MEDS: PROTONIX IV SCH (09:25)
--- NOTE | 2019-03-21 13:03 | NEPHROLOGY CONSULTATION ---
DATE: 03/21/2019 REASON FOR ADMISSION: Abdominal pain with stomachache over left suprapubic area x3 days prior to admission, acute kidney injury on CKD associated with hyperkalemia. CONSULTING PHYSICIAN: Dr. Dudley. HISTORY OF PRESENT ILLNESS: Mr. Odell is a 74-year-old white male who is known to our outpatient services for chronic kidney disease. The patient has had a stable baseline creatinine of 2.6 to 3.1 since 2017. Last seen in our office in January 2019 with a creatinine of 2.4. The patient has been bedridden since a back surgery and is a resident of a local [facility]. He states that he had severe abdominal discomfort, left flank pain. This had not improved. It is noted that Dr. Dudley had indicated he had possible hydronephrosis on the left side, which he had thought the stone had been passed. Werner catheter was placed with worsening renal function and tests. Baseline creatinine of 2.4 with up to 5.1 on admission with a BUN of 99. Potassium was 6.1. Due to these findings, he was transferred to [facility] with acute kidney injury. The patient denies any chest pain. No increased work of breathing. No fever or chills. Positive for decreased appetite. Occasional nausea. No emesis. PAST MEDICAL HISTORY: Chronic kidney disease stage 4 with baseline creatinine of 2.4, metabolic syndrome, hypertension, acid reflux disease, gout, hypothyroidism, diabetes mellitus type 2, chronic back pain, the patient is bedridden. Patient has chronic Werner catheter. PAST SURGICAL HISTORY: Back surgeries x2, cervical vertebral fusions, decompression of median nerve. SOCIAL HISTORY: He is . He lives at [facility]. He is bedridden or wheelchair. No smoking. No alcohol. No illicit drug use. FAMILY HISTORY: Father of liver cancer at 72. Mother of dementia at 58. ALLERGIES: Reported as Levaquin. HOME MEDICATIONS: Allopurinol, MiraLAX, Synthroid, furosemide, hydralazine, [place], Protonix, senna and duloxetine. REVIEW OF SYSTEMS: Times 10 with pertinent positives listed above in the HPI. VITAL SIGNS: Most recent, temperature 98.6 degrees, blood pressure 103/60, heart rate 75, respirations 20. He is on 2 L nasal cannula, last recorded saturation 99%. He has had 200 in, 1100 out to Werner catheter. LABORATORY DATA: Sodium is 128, potassium 5.4, chloride 90, CO2 26, BUN 96, creatinine 4.5, glucose 86. His anion gap is 12. His calcium is 9. White count 9.97, hemoglobin 9.5, hematocrit 29.4 with a platelet count of 160,000. PHYSICAL EXAMINATION: General: This is a 74-year-old white male resting quietly in bed. He is on his right side. He denies any discomfort. He appears chronically ill. Skin: Warm and dry. HEENT: Normocephalic, atraumatic. Conjunctiva is pale. Neck: Supple. Trachea midline. No evidence of JVD. Cardiovascular: Regular rate and rhythm. No appreciable murmur. Lungs: Clear to auscultation bilaterally. Equal excursion on O2. Abdomen: Distended, tight, tender to palpation. Slight guarding noted. Genitourinary: Werner catheter is in place. Adequate urine out noted. Extremities: Have trace bilateral lower extremity edema. Palpable pedal pulses. Neurological: Alert and oriented x3. ASSESSMENT AND PLAN: 1. Acute kidney injury on chronic kidney disease stage 4. The patient's baseline creatinine is noted at 2.4 in January 2019. Creatinine is elevated to 5.1 on admission, now down to 4.5. He continues on normal saline at 80 mL an hour. We will check urine electrolytes and a renal ultrasound to determine any hydronephrosis or outlet obstruction. Continue IV fluids. Checking labs on a daily basis. 2. Electrolytes and acid-base balance. The patient's sodium is improving up to 128. Potassium is stabilized at 5.4. 3. Anemia. Hemoglobin of 9.5. This remains low but stable. 4. Abdominal discomfort. We will check patient for possible hydronephrosis or urine outlet obstruction. He is positive for a urinary tract infection, gram-negative rods. The patient is currently on Zosyn, renally dosed. I would like to thank you for allowing us to follow with this patient. Dictated by TARA Hensley for Jus Villarreal MD Face to face encounter, data reviewed, discussed with Penelope Lawton on 03/21/19. I agree with the above assessment and plan of care. cc: TARA Hensley, MD [facility]
--- NOTE | 2019-03-21 16:39 | Diag Imaging Result Doc PS360 ---
EXAM: US RENAL 2 (RETROPER) COMPLETE INDICATION: decreased renal function TECHNIQUE: COMPARISON: 04/14/2017 FINDINGS: There is marked increased renal cortical echotexture similar to the previous study, which is a nonspecific indicator of medical renal disease. No discrete renal mass is appreciated. There is no evidence of hydronephrosis. The right kidney measures 10.4 cm and the left kidney measures 11.4 cm in the greatest longitudinal axes. Right renal cortex measures 0.9 cm and the left renal cortex measures 0.8 cm in thickness. There is a Werner catheter in the urinary bladder and the bladder is completely nondistended. IMPRESSION: Increased renal echotexture similar to the previous study, which is a nonspecific indicator of medical renal disease. Electronically signed by Darrion Allen 03/21/2019 4:37 PM
[2019-03-21] MEDS ORDERED: ZOSYN ONE (16:47)
[2019-03-21] MEDS ORDERED: AFRIN NASAL SPRAY NAS PRN (18:42)
[2019-03-21] MEDS: NS 1,000 ML IV SCH (19:02)
[2019-03-21 19:26] LABS: UR CREAT RANDOM 41.5 mg/dL (14-26); UR PROT RANDOM 29.2 mg/dL
[2019-03-21] MEDS ORDERED: ZOSYN 2.275 GM in NS 50 ML IV SCH (20:00)
[2019-03-21] MEDS: LOVENOX SUBQ SCH (20:13)
[2019-03-21] MEDS ORDERED: BLISTEX MEDICATED BERRY LIP BALM TOP PRN (20:13)
[2019-03-21] MEDS: ZOSYN 2.25 GM in NS 50 ML IV SCH (20:14)
--- NOTE | 2019-03-21 21:55 | PROGRESS NOTE ---
DATE: 03/21/2019 SUBJECTIVE: The patient is still on n.p.o., complains of abdominal pain. Blood pressure is running a little bit low. He has some bleeding from the nostrils. PHYSICAL EXAMINATION: Vital signs: Temperature is 97.5 degrees, pulse is 74, blood pressure is 95/67. General: Heavy set. Bleeding from the nostrils from the nasal oxygen. Chest: Clear. Cardiovascular: Heart sounds are regular. Abdomen: Belly is soft. Tender in the left side of the abdomen. No signs of peritonitis. Werner was placed. INVESTIGATIONS: White cell count 9.9, hematocrit 29.4, platelets 160,000. Sodium 128, potassium 5.4, chloride 90, BUN 96, creatinine 4.5, A1c 6.1, calcium 9.0. Microbiology: Urine cultures gram-negative miryam. Blood cultures reported some gram-positive rods not clarifying. Ultrasound: Increased renal echotexture, nonspecific medical renal disease. No hydronephrosis. ASSESSMENT AND PLAN: 1. Left-sided pyelonephritis, possible stone with acute kidney injury. Plan is IV fluids, gentle hydration, 50 mL/h. 2. Epistaxis from the nasal oxygen. Continue on Afrin and pressure. 3. Gout on Zyloprim. 4. Low blood pressure. Hold hydralazine if systolic blood pressure less than 100. 5. Deep venous thrombosis prophylaxis with Lovenox. 6. Hyperkalemia is improving. 7. Acute kidney injury with chronic renal failure. Gentle hydration. 8. Urinary tract infection. Follow up on urine and blood cultures. Currently on IV Zosyn. Monitoring daily CBC, renal profile. Appreciated Dr. Villarreal's consult. LEVEL OF DOCUMENTATION: 25 minutes. cc: Mike Dudley MD
[2019-03-22] MEDS: NORCO-10 PO PRN ×3 (00:32→20:08)
[2019-03-22] MEDS: ZOSYN 2.25 GM in NS 50 ML IV SCH ×3 (05:01→20:07)
[2019-03-22] MEDS: APRESOLINE PO SCH ×3 (05:02→20:08)
--- NOTE | 2019-03-22 08:57 | NEPHROLOGY PROGRESS NOTE ---
DATE: 03/22/2019 TIME SEEN: 0630. SUBJECTIVE: Mr. Odell is resting quietly in bed. States that he thinks he is feeling just slightly better, though he does remain slightly nauseated still. Abdominal cramping has slowed down. OBJECTIVE: Vital Signs: Temperature 97.8 degrees, blood pressure 108/60, heart rate is 73, respirations 16. He is on room air. Last recorded saturation 93%. He has had 400 in, 1030 out to Werner. His labs are still pending this a.m. Previous sodium 128, previous potassium 5.4, BUN of 96, with a creatinine of 4.5. Previous hemoglobin 9.5. Patient had urine electrolytes collected yesterday late afternoon indicating a FENa score of 4.03%. Blood cultures resulted with a gram-negative miryam, sensitivity pending. Physical Examination: General: This is a 74-year-old, white male resting quietly in bed. He appears chronically ill. No acute distress. Skin is warm and dry. HEENT: Normocephalic, atraumatic. Conjunctivae are pale. He has JHOAN. Mucous membranes are dry. Neck: Supple. Trachea midline. No evidence of JVD. Cardiovascular: He is regular rate and rhythm. No appreciable murmur. Lungs: Clear to auscultation bilaterally. Equal excursion, on O2. Abdomen: Large, tight. No tenderness present today. Positive bowel sounds. Genitourinary: Not inspected. Werner catheter is in place with adequate urine out. Extremities: Have trace edema. No clubbing or cyanosis. Positive venous stasis. Neurological: He is alert and oriented x3. ASSESSMENT AND PLAN: 1. Acute kidney injury on chronic kidney disease stage 4. Labs are currently pending this morning. He has had adequate urine output. Urine electrolytes indicate more than likely acute tubular necrosis. We will continue with his intravenous fluids of normal saline and evaluate labs today and labs in the morning. No indications for intervention. 2. Electrolytes and acid-base balance. These are currently pending. Potassium has been fairly stable. Sodium is low secondary to his acute kidney injury. We will monitor. 3. Acid-base balance. This has been stable. 4. Anemia. This is low but stable. 5. Abdominal discomfort. The patient does have a positive urinary tract infection with gram- negative rods, now positive blood cultures, gram-negative rods. He remains on Zosyn renally dosed, to be followed by the primary care. I would like to thank you for allowing us to follow with this patient. Dictated by TARA Hensley for Jus Villarreal MD Face to face encounter, data reviewed, discussed with Penelope Lawton on 03/22/19. I agree with the above assessment and plan of care. cc: TARA Hensley MD Jagan Reddy, MD [facility]
[2019-03-22 09:05] LABS: BASO% 0.2 % (0.0-0.8); EOS# 0.47 X1000 (0.0-0.7); EOS% 5.6 % (0.0-10.0); HEMATOCRIT 29.2 % (42.0-52.0); HEMOGLOBIN 9.6 g/dL (14.0-18.0); IMM GRAN% 0.5 % (0.0-0.5); LYMPH# 1.15 X1000 (1.2-3.4); LYMPH% 13.6 % (20.5-51.1); MCH 32.1 PG (27-31); MCHC 32.9 g/dL (33-37); MCV 97.7 FL (81-99); MONO# 1.14 X1000 (0.11-0.59); MONO% 13.5 % (1.7-9.3); MPV 10.1 FL (7.4-10.4); NEUT# 5.64 X1000 (1.4-6.5); NEUT% 66.6 % (42.2-75.2); PLT 148 X1000 (130-400); RBC 2.99 XMIL (4.7-6.1); RDW 14.3 % (11.5-14.5); WBC 8.46 X1000 (4.8-10.8)
[2019-03-22 09:06] LABS: BASO# 0.02 X1000 (0.0-0.2); IMM GRAN# 0.04 X1000 (0.0-0.04)
[2019-03-22 09:22] LABS: ALBUMIN 2.8 g/dL (3.5-5.0); CALCIUM 8.8 mg/dL (8.8-10.2); CREATININE 4.8 mg/dL (0.7-1.2); PHOSPHORUS 4.9 mg/dL (2.7-4.5); POTASSIUM 4.7 mmol/L (3.5-5.1)
[2019-03-22] MEDS: MIRALAX PO SCH (09:30)
[2019-03-22] MEDS: SYNTHROID PO SCH (09:31)
[2019-03-22] MEDS: SODIUM CHLORIDE 0.9% INJ SCH ×2 (09:31→09:34)
[2019-03-22] MEDS: ZYLOPRIM PO SCH (09:31)
[2019-03-22] MEDS: PROTONIX IV SCH (09:31)
[2019-03-22] MEDS: HUMALOG SUBQ SCH ×2 (11:36→20:15)
[2019-03-22] MEDS: LOVENOX SUBQ SCH (20:07)
--- NOTE | 2019-03-22 21:12 | PROGRESS NOTE ---
DATE: 03/22/2019 SUBJECTIVE: Patient is a little better, wants to eat, IV fluids, and epistaxis is better. Complains of pain in the left side of the abdomen. OBJECTIVE: Vital Signs: Temperature is 97 degrees, pulse is 73. Vitals are stable. HEENT: Exam within normal limits. No signs of active bleeding noted. Chest: Clear. Heart: Sounds are regular. Abdomen: Belly is soft. Diffusely tender and no signs of peritonitis. : Werner was placed. INVESTIGATIONS: White cell count 8.4, hematocrit 29.2, platelets 148,000. Sodium 133, potassium 4.7, BUN 97, creatinine 4.8, glucose 129. Blood cultures, urine cultures, gram-negative rods. ASSESSMENT AND PLAN: 1. Left-sided pyelonephritis, currently receiving intravenous Zosyn. Follow up on culture and sensitivity. 2. Deep vein thrombosis and gastrointestinal prophylaxis. 3. We will do the clear liquids. 4. Continue intravenous fluids and slowly advance the diet. 5. Continue to monitor renal function tests. LEVEL OF DOCUMENTATION: 25 minutes. cc: Mike Dudley MD
[2019-03-23] MEDS: NS 1,000 ML IV SCH ×3 (04:00→12:15)
[2019-03-23] MEDS: APRESOLINE PO SCH ×2 (04:00→13:29)
[2019-03-23] MEDS: NORCO-10 PO PRN ×3 (04:00→15:43)
[2019-03-23] MEDS: ZOSYN 2.25 GM in NS 50 ML IV SCH (04:00)
[2019-03-23] MEDS: HUMALOG SUBQ SCH ×6 (06:22→22:03)
[2019-03-23] MEDS: MIRALAX PO SCH (07:59)
[2019-03-23] MEDS: SYNTHROID PO SCH (08:01)
[2019-03-23] MEDS: DULCOLAX PR PRN (08:01)
[2019-03-23] MEDS: ZYLOPRIM PO SCH (08:01)
[2019-03-23 08:17] LABS: BASO# 0.03 X1000 (0.0-0.2); BASO% 0.4 % (0.0-0.8); EOS# 0.39 X1000 (0.0-0.7); EOS% 4.9 % (0.0-10.0); HEMATOCRIT 30.3 % (42.0-52.0); HEMOGLOBIN 9.7 g/dL (14.0-18.0); IMM GRAN# 0.05 X1000 (0.0-0.04); IMM GRAN% 0.6 % (0.0-0.5); LYMPH# 1.23 X1000 (1.2-3.4); LYMPH% 15.5 % (20.5-51.1); MCH 31.3 PG (27-31); MCV 97.7 FL (81-99); MONO% 11.4 % (1.7-9.3); MPV 10.2 FL (7.4-10.4); NEUT# 5.32 X1000 (1.4-6.5); NEUT% 67.2 % (42.2-75.2); PLT 157 X1000 (130-400); RDW 14.4 % (11.5-14.5); WBC 7.92 X1000 (4.8-10.8)
[2019-03-23 08:44] LABS: CALCIUM 8.4 mg/dL (8.8-10.2); CREATININE 3.8 mg/dL (0.7-1.2); POTASSIUM 4.4 mmol/L (3.5-5.1)
[2019-03-23 08:56] LABS: ALBUMIN 2.7 g/dL (3.5-5.0); CALCIUM 8.9 mg/dL (8.8-10.2); CREATININE 3.8 mg/dL (0.7-1.2); PHOSPHORUS 4.9 mg/dL (2.7-4.5); POTASSIUM 4.3 mmol/L (3.5-5.1)
[2019-03-23] MEDS: SODIUM CHLORIDE 0.9% INJ SCH (09:03)
[2019-03-23] MEDS: PROTONIX IV SCH (09:03)
[2019-03-23] MEDS: PRIMAXIN 500 MG in NS 100 ML IV SCH ×2 (09:07→15:44)
--- NOTE | 2019-03-23 13:14 | NEPHROLOGY PROGRESS NOTE ---
DATE: 03/23/2019 TIME SEEN: 0635. SUBJECTIVE: Mr. Odell is resting quietly in bed. He has been sleeping well. He denies any pain. No increased work of breathing. LABORATORY DATA: Sodium is 133, potassium 4.3, chloride 93, CO2 of 26, BUN is 87, creatinine is 3.8, glucose of 104, anion gap of 14, calcium 8.4. Phosphorus 4.9. Albumin 2.7. White count 7.92, hemoglobin 9.7, hematocrit 30.3, with a platelet count of 157,000. The patient's blood cultures are positive for Escherichia coli. Urine cultures are positive for Escherichia coli. OBJECTIVE: Most Recent Vital Signs: Temperature 97.4 degrees, blood pressure 141/84, heart rate 67, respirations 14. He is currently on room air. Last recorded saturation 97%. He has had 950 in, 1525 out to Werner catheter. General: This is a 74-year-old white male, resting quietly in bed. No acute distress. Skin: Warm and dry, though he appears chronically ill. HEENT: Normocephalic, atraumatic. Conjunctiva is pale. He has JHOAN. Mucous membranes are dry. Neck: Supple. Trachea midline. No evidence of JVD. Cardiovascular: Regular rate and rhythm. No appreciable murmurs. Lungs: Clear to auscultation bilaterally. Equal excursion on O2. Abdomen: Large, tight. No tenderness present. Positive bowel sounds. Genitourinary: Werner catheter is in place. Adequate urine out documented. Extremities: Trace pretibial edema bilateral. Positive venous stasis present. Neurological: Alert and oriented x3. ASSESSMENT AND PLAN: 1. Acute kidney injury on chronic kidney disease stage 4. BUN and creatinine continue to stay elevated. He continues on intravenous fluid resuscitation of normal saline. Adequate urine output is documented. No indications for intervention. 2. Electrolytes and acid-base balance. These are acceptable. 3. Anemia. This is low, but stable. 4. Abdominal discomfort. This has improved with renal dosed antibiotics. The patient is positive for urinary tract infection and sepsis secondary to Escherichia coli. The patient has chronic long indwelling Werner catheter for over a year with multiple attempts to remove. The patient remains obstructed, and Werner catheter has been replaced multiple times. The patient has had back surgery approximately 1 year ago. 5. Questionable neurogenic bladder. We will consult Urology for any help in assistance in his care. I would like to thank you for allowing us to follow with this patient. Dictated by TARA Hensley for Jus Villarreal MD Face to face encounter, data reviewed, discussed with Penelope Lawton on 03/23/19. I agree with the above assessment and plan of care. cc: TARA Hensley MD Jagan Reddy, MD [facility]
[2019-03-23] MEDS ORDERED: ZANAFLEX PO ONE (17:59)
[2019-03-23] MEDS ORDERED: NS 500 ML IV ONE (20:45)
[2019-03-23] MEDS: FLOMAX PO SCH (20:48)
--- NOTE | 2019-03-23 21:04 | PROGRESS NOTE ---
DATE: 03/23/2019 SUBJECTIVE: The patient complains of neck spasms. Belly pain is getting better. He has a Werner catheter. Urine and blood cultures are positive for E coli which is ESBL positive. REVIEW OF SYSTEMS: Otherwise, none reported. OBJECTIVE: Vital Signs: Temperature is 98, pulse 68, blood pressure 142/72. HEENT: Within normal limits. Neck: Supple, no lymphadenopathy. Chest: Clear. Heart: Sounds are regular. Abdomen: Belly is soft, nontender. Good bowel sounds. No deficits noted. INVESTIGATIONS: CBC: White cell count 7.9, hematocrit 30, platelets 157. Sodium 133, potassium 4.3, BUN 87, creatinine 3.8, glucose 122. ASSESSMENT AND PLAN: 1. Pyelonephritis on the left side with sepsis due to extended-spectrum [id number] Escherichia coli. 2. Hypotension. Discontinue hydralazine. 3. Based on the sensitivity, change the antibiotics to IV Invanz. 4. Left-sided cervical pain with spasms. Zanaflex as needed. 5. Hyperkalemia, better. 6. Acute kidney injury with chronic kidney disease. Slowly improving. Continue on IV fluids at 50 mL/hr. Advanced the diet. 7. Constipation, on MiraLAX. 8. History of benign prostatic hypertrophy. Dr. Romano started on Flomax. We will closely monitor blood pressure, and he is also on finasteride. Continue to monitor renal profile. LEVEL OF DOCUMENTATION: 25 minutes. cc: Mike Dudley MD
--- NOTE | 2019-03-23 21:17 | EKG Report ---
Test Performed on : 03/23/2019 8:54:34 PM Test Reason : DECREASED HEART RATE Blood Pressure : / mmHG Vent. Rate : 043 BPM Atrial Rate : 043 BPM P-R Int : 214 ms QRS Dur : 098 ms QT Int : 546 ms P-R-T Axes : 021 013 048 degrees QTc Int : 461 ms Marked sinus bradycardia. with 1st degree AV block. Possible Lateral infarct (cited on or before 26-FEB-2019) Abnormal ECG When compared with ECG of 21-MAR-2019 07:35, (Unconfirmed) premature atrial complexes. are no longer present Vent. rate has decreased BY 41 BPM Confirmed by Paulo Cavanaugh MD ([id number]) on 03/26/2019 9:32:27 PM
--- NOTE | 2019-03-23 21:40 | CONSULTATION ---
DATE OF CONSULTATION: 03/23/2019 ATTENDING AND REFERRING PHYSICIAN: Dr. Graham Dudley. HISTORY OF PRESENT ILLNESS: This 74-year-old male was admitted with a urinary tract infection, sepsis syndrome and acute on chronic renal failure. The patient was last seen in the Urology Clinic in March 2018 with a history of urinary retention after lower back surgery. The patient was scheduled for cystoscopic exam but did not keep the appointment. The patient was also on Flomax at 0.4 mg b.i.d. and Proscar 5 mg a day. He states that he is not taking that any longer, and that when he changed nursing homes, that medicine was not continued. He states he has a chronic indwelling Werner catheter and has had multiple voiding trials since last year. The patient has a history of kidney stones and had shockwave lithotripsy many years ago but no other urologic surgery. PAST MEDICAL HISTORY: Chronic renal failure, hypertension, gastroesophageal reflux disease, gout, hypothyroidism, diabetes, coronary artery disease with history of paroxysmal atrial fibrillation. CURRENT MEDICATIONS: Documented on the chart and do not include Flomax or Proscar. PAST SURGICAL HISTORY: Back surgery x2, cervical fusion, left carpal tunnel surgery and extracorporeal shockwave lithotripsy (he does not remember which side). SOCIAL HISTORY: No tobacco or alcohol use. REVIEW OF SYSTEMS: No known drug allergies. He states he lives in a alf. He states his Werner catheter causes him some problems. He denies any recent chest pains. He states he just does not feel well. PHYSICAL EXAMINATION: General: An obese, age-apparent, normally developed white male who is cooperative. HEENT: Normal for age. Lungs: Clear but distant breath sounds. Cardiovascular: Regular rate and rhythm, but again distant heart sounds. Abdomen: Obese. Soft nontender. No hepatosplenomegaly or masses. Normal bowel sounds. : Uncircumcised male with Werner catheter in place. The foreskin and scrotum have some edema. When the foreskin is retracted, it is seen he has iatrogenic midshaft hypospadias (hypospadias due to the indwelling Werner catheter). Rectal: Deferred. Extremities: +1 to 2 lower extremity edema. No cyanosis or clubbing. Neurologic: No focal deficits. LABORATORY EVALUATION: He has a white count of 7.92, hemoglobin 9.7, hematocrit 30.3. Platelets are 157,000. Serum electrolytes have a sodium of 133, potassium of 4.3. Chloride 93, bicarb 26, BUN 87, creatinine 3.8. His baseline creatinine is around 2.2. Urine culture grew E. coli as well as his blood cultures. CT stone search did not reveal any hydronephrosis or renal lithiasis. His renal ultrasound also showed no hydronephrosis, but there was increased echogenicity of the cortex consistent with medical renal disease. IMPRESSION: 1. Urinary retention with urinary tract infection and sepsis syndrome. 2. Probable neurogenic bladder. 3. Iatrogenic hypospadias. 4. History of renal lithiasis. 5. Multiple medical problems with increased renal insufficiency. PLAN: 1. Recommend restarting Flomax at 0.4 mg b.i.d. and Proscar at 5 mg a day (both metabolized in the liver ). 2. He will need a cystoscopic exam, possible TURP and placement of a suprapubic tube after he is medically stable, hopefully next week. Thank you for this consultation. cc: MD Mike Tinajero MD
[2019-03-23] MEDS: LOVENOX SUBQ SCH (22:41)
[2019-03-23] MEDS ORDERED: NS 1,000 ML IV SCH (22:45)
[2019-03-24] MEDS: PRIMAXIN 500 MG in NS 100 ML IV SCH ×3 (01:37→17:08)
[2019-03-24] MEDS: NORCO-10 PO PRN ×4 (03:52→23:21)
[2019-03-24] MEDS: NS 1,000 ML IV SCH ×2 (06:10→17:03)
[2019-03-24] MEDS: HUMALOG SUBQ SCH ×3 (06:10→17:27)
[2019-03-24] MEDS: PROSCAR PO SCH (09:03)
[2019-03-24] MEDS: SYNTHROID PO SCH (09:03)
[2019-03-24] MEDS: PROTONIX IV SCH (09:03)
[2019-03-24] MEDS: ZYLOPRIM PO SCH (09:03)
[2019-03-24] MEDS: FLOMAX PO SCH ×2 (09:04→22:00)
[2019-03-24] MEDS: MIRALAX PO SCH (09:04)
[2019-03-24 09:09] LABS: ALBUMIN 3.1 g/dL (3.5-5.0); CALCIUM 8.9 mg/dL (8.8-10.2); CREATININE 4.1 mg/dL (0.7-1.2); PHOSPHORUS 4.7 mg/dL (2.7-4.5); POTASSIUM 4.8 mmol/L (3.5-5.1)
--- NOTE | 2019-03-24 19:27 | NEPHROLOGY PROGRESS NOTE ---
DATE: 03/24/2019 SUBJECTIVE: He states he is feeling better overall. No nausea or shortness of breath. OBJECTIVE: Vital Signs: Blood pressure 140/71, heart rate 56, respirations 20, afebrile. General: No acute distress. Skin: Warm and dry. Neck: The neck veins are not distended. Heart: Regular. Lungs: Equal. No crackles. Abdomen: Soft, nontender. Bowel sounds present. Extremities: 1+ edema. No clubbing or cyanosis. IMPRESSION: Acute kidney injury overlying chronic kidney disease. Baseline creatinine 2.5 to 3. His creatinine has been steadily improving, though it amada slightly today. Continue treatment of his infection. No other changes. cc: MD Mike Briceno MD
[2019-03-24] MEDS: LOVENOX SUBQ SCH ×2 (20:59→21:00)
--- NOTE | 2019-03-24 22:07 | PROGRESS NOTE ---
DATE: 03/24/2019 SUBJECTIVE: Last night several phone calls were made whenever after Flomax and his blood pressure dropped, was bradycardic and he was sleeping. He was given fluid boluses followed by increasing the saline. This morning his hemodynamics are stable. 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 EKG showed sinus bradycardia with first-degree AV block, and I stopped the hydralazine, decreased the Flomax to once a day. As a result, he has worsening of renal function tests. OBJECTIVE: Vital signs: Temperature is 97, pulse 69, blood pressure is running high. HEENT: Within normal limits. She is totally bedridden. Chest: Clear. Cardiovascular: Heart sounds are regular. Abdomen: Belly is soft, obese, nontender. DIAGNOSTIC DATA: Blood cultures, urine cultures positive for E coli, which is ESBL positive. ASSESSMENT AND PLAN: 1. Left-sided pyelonephritis with extended spectrum beta-lactamase positive Escherichia coli. The patient was on IV Primaxin 500 q.8. 2. Hypotension. Increasing IV fluids and monitor daily renal profile. Hold the hydralazine and decrease the Flomax 0.4 mg once daily. 3. Constipation, on MiraLAX. 4. Hypothyroidism on Synthroid. 5. Deep venous thrombosis prophylaxis with Lovenox. 6. Gout on Zyloprim 100 mg daily. 7. Diabetes on sliding scale with insulin coverage. His baseline creatinine is around 2. Continue to monitor in telemetry and will follow up over the weekend. LEVEL OF DOCUMENTATION: 25 minutes. cc: Mike Dudley MD MTDD
[2019-03-25] MEDS: PRIMAXIN 500 MG in NS 100 ML IV SCH ×3 (00:32→18:20)
[2019-03-25] MEDS: HUMALOG SUBQ SCH ×5 (00:42→21:32)
[2019-03-25] MEDS: NORCO-10 PO PRN ×3 (04:57→22:22)
[2019-03-25] MEDS: NS 1,000 ML IV SCH ×2 (06:49→18:27)
[2019-03-25 07:49] LABS: ALBUMIN 2.8 g/dL (3.5-5.0); CALCIUM 8.9 mg/dL (8.8-10.2); PHOSPHORUS 4.1 mg/dL (2.7-4.5); POTASSIUM 4.6 mmol/L (3.5-5.1)
[2019-03-25] MEDS: SYNTHROID PO SCH (09:26)
[2019-03-25] MEDS: ZYLOPRIM PO SCH (09:26)
[2019-03-25] MEDS: PROSCAR PO SCH (09:26)
[2019-03-25] MEDS: SODIUM CHLORIDE 0.9% INJ SCH (09:27)
[2019-03-25] MEDS: FLOMAX PO SCH ×2 (09:27→21:32)
[2019-03-25] MEDS: PROTONIX IV SCH (09:27)
[2019-03-25] MEDS: MIRALAX PO SCH (09:27)
[2019-03-25] MEDS ORDERED: AMBIEN PO PRN (13:14)
--- NOTE | 2019-03-25 14:12 | PROGRESS NOTE ---
DATE: 03/25/2019 SUBJECTIVE: Mr. Odell is still having some abdominal pain. He has insomnia. His abdomen is soft and slightly tender, especially in epigastric area. Vital signs are stable. Blood pressure was 168/89. Electrolytes are normal: BUN is 32, creatinine is 3. Blood cultures positive for E. coli. He is on imipenem. He has chronic kidney disease. He is being followed by Dr. Villarreal, who will continue with the current management on him. -1 cc: MD Mike Lora MD
[2019-03-25] MEDS: ZANAFLEX PO PRN (15:45)
[2019-03-25] MEDS: METAMUCIL PO SCH (21:31)
[2019-03-25] MEDS: SENOKOT PO SCH (21:31)
[2019-03-25] MEDS: LOVENOX SUBQ SCH (21:32)
[2019-03-26] MEDS: PRIMAXIN 500 MG in NS 100 ML IV SCH ×4 (02:01→23:59)
[2019-03-26] MEDS: ZANAFLEX PO PRN ×2 (02:03→16:04)
[2019-03-26] MEDS: HUMALOG SUBQ SCH ×4 (06:00→20:05)
[2019-03-26 08:21] LABS: ALBUMIN 2.9 g/dL (3.5-5.0); CREATININE 2.4 mg/dL (0.7-1.2); PHOSPHORUS 4.1 mg/dL (2.7-4.5); POTASSIUM 4.8 mmol/L (3.5-5.1)
[2019-03-26] MEDS ORDERED: NORVASC PO SCH (09:00)
[2019-03-26] MEDS: NORCO-10 PO PRN ×2 (10:19→21:47)
[2019-03-26] MEDS: MIRALAX PO SCH (10:19)
[2019-03-26] MEDS: LASIX PO SCH (10:19)
[2019-03-26] MEDS: PROSCAR PO SCH (10:19)
[2019-03-26] MEDS: FLOMAX PO SCH ×2 (10:20→20:06)
[2019-03-26] MEDS: PROTONIX IV SCH (10:21)
[2019-03-26] MEDS: ZYLOPRIM PO SCH (10:21)
[2019-03-26] MEDS: SYNTHROID PO SCH (10:22)
[2019-03-26] MEDS: CYMBALTA PO SCH (10:23)
[2019-03-26] MEDS: NS 1,000 ML IV SCH (10:23)
[2019-03-26] MEDS: DULCOLAX PR PRN (11:58)
--- NOTE | 2019-03-26 13:45 | PROGRESS NOTE ---
DATE: 03/26/2019 Mr. Odell is certainly improving his CKD. He has had prerenal azotemia on top of days and BUN and creatinine improving. BUN is 64, creatinine is 2.4. His blood sugar was 110. His vital signs are stable. Lungs clear. Heart sounds are normal. We will continue with the current management. -9 cc: MD Mike Lora MD
[2019-03-26] MEDS: NORVASC PO SCH (16:43)
[2019-03-26] MEDS: LOVENOX SUBQ SCH (20:06)
[2019-03-26] MEDS: METAMUCIL PO SCH (20:06)
[2019-03-26] MEDS: SENOKOT PO SCH (20:06)
[2019-03-27] MEDS: ZANAFLEX PO PRN ×4 (02:40→22:01)
[2019-03-27] MEDS: NORCO-10 PO PRN ×2 (05:46→15:16)
[2019-03-27] MEDS: HUMALOG SUBQ SCH ×4 (06:25→22:17)
[2019-03-27] MEDS: PRIMAXIN 500 MG in NS 100 ML IV SCH ×2 (09:29→16:22)
[2019-03-27] MEDS: FLOMAX PO SCH ×2 (09:32→20:54)
[2019-03-27] MEDS: MIRALAX PO SCH (09:33)
[2019-03-27] MEDS: PROTONIX IV SCH (09:33)
[2019-03-27] MEDS: SYNTHROID PO SCH (09:33)
[2019-03-27] MEDS: CYMBALTA PO SCH (09:33)
[2019-03-27] MEDS: ZYLOPRIM PO SCH (09:33)
[2019-03-27] MEDS: LASIX PO SCH (09:33)
[2019-03-27] MEDS: NORVASC PO SCH (09:33)
[2019-03-27] MEDS: PROSCAR PO SCH (09:33)
[2019-03-27] MEDS: SODIUM CHLORIDE 0.9% INJ SCH (09:34)
--- NOTE | 2019-03-27 10:46 | NEPHROLOGY PROGRESS NOTE ---
DATE: 03/27/2019 SUBJECTIVE: The patient is resting in bed. He states he had some nausea last night, but none this morning. OBJECTIVE: Vital Signs: Temperature 97.4 degrees, pulse 72, respiratory rate 18, blood pressure 146/83. Intake 3.3 L. Output 3.9 L. General: Elderly gentleman, resting in bed, chronically ill- appearing, but is in no acute distress. HEENT: Normocephalic, atraumatic. JHOAN. Conjunctivae are pale. His oral mucosa is moist. Neck: Supple. There is no JVD noted. Cardiovascular: Regular rate and rhythm. There is no murmur. Pulmonary: He is clear bilaterally. He has equal excursion. No increased work of breathing. Abdomen: Soft, nontender. He does have positive bowel sounds. : He has a Werner catheter with yellow urine noted. Extremities: No clubbing, cyanosis. He does have trace lower extremity edema bilaterally. Integumentary: Skin is pale, warm, and dry. LABORATORY DATA: No labs today. His last chemistry panel yesterday showed sodium 137, potassium 4.8, CO2 of 23, BUN 64, creatinine 2.4 (3.0, 4.1), and albumin 2.9. ASSESSMENT AND PLAN: 1. Acute overlying chronic kidney disease. His baseline creatinine is 2.5 to 3. Creatinine yesterday was in that range. No additional changes to his current treatment plan. 2. Pyelonephritis, on appropriately dosed antibiotics with imipenem. No change is needed. Dictated by TARA Livingston for Jus Villarreal MD Face to face encounter, data reviewed, discussed with Kg Johnson on 03/27/19. I agree with the above assessment and plan of care. cc: MD Mike Briceno MD [facility]
[2019-03-27] MEDS: NS 1,000 ML IV SCH ×3 (14:41→22:18)
[2019-03-27] MEDS: SENOKOT PO SCH (20:54)
[2019-03-27] MEDS: METAMUCIL PO SCH (20:54)
[2019-03-27] MEDS: LOVENOX SUBQ SCH (20:55)
--- NOTE | 2019-03-27 21:33 | PROGRESS NOTE ---
DATE: 03/27/2019 SUBJECTIVE: Patient is better. No neck pain. No spasms. REVIEW OF SYSTEMS: None reported. The patient will go back to the rehab. No family support. Is completely bedridden. OBJECTIVE: Temperature is 98 degrees, pulse 66, blood pressure is 150/73 and room air 96%.HEENT: Within normal limits. Neck: Supple. No lymphadenopathy. Chest: Bilateral air entry. Heart: Sounds are regular. Belly: Is soft, nontender. Good bowel sounds. No neurological deficits. LABS: None reported. As of 03/26 sodium 137, potassium 4.5, BUN 64, creatinine 2.4. ASSESSMENT AND PLAN: 1. Acute kidney injury is improving coming to the baseline. Repeat the labs in the morning. 2. Left-sided pyelonephritis with extended spectrum beta-lactamase Escherichia coli and currently on intravenous imipenem. 3. Hypertension. Medicines were stopped before. Currently started on amlodipine and will slowly reconcile. 4. Benign prostatic hypertrophy on Flomax. 5. Constipation on MiraLAX. 6. Hypothyroidism on Synthroid and slowly decrease the fluids now 50 mL/h with plan to discharge to the rehab once he is stable. Patient has positive urine cultures as well as blood cultures. LEVEL OF DOCUMENTATION: 25 minutes. cc: Mike Dudley MD
[2019-03-28] MEDS: PRIMAXIN 500 MG in NS 100 ML IV SCH ×4 (00:40→23:46)
[2019-03-28] MEDS: NORCO-10 PO PRN ×5 (01:18→22:04)
[2019-03-28] MEDS: ZANAFLEX PO PRN ×4 (05:37→23:46)
[2019-03-28] MEDS: HUMALOG SUBQ SCH ×4 (05:59→20:58)
[2019-03-28 07:12] LABS: BASO# 0.02 X1000 (0.0-0.2); BASO% 0.2 % (0.0-0.8); EOS# 0.35 X1000 (0.0-0.7); EOS% 3.9 % (0.0-10.0); HEMATOCRIT 28.6 % (42.0-52.0); HEMOGLOBIN 9.2 g/dL (14.0-18.0); IMM GRAN# 0.11 X1000 (0.0-0.04); IMM GRAN% 1.2 % (0.0-0.5); LYMPH# 1.63 X1000 (1.2-3.4); MCH 31.9 PG (27-31); MCHC 32.2 g/dL (33-37); MCV 99.3 FL (81-99); MONO# 0.51 X1000 (0.11-0.59); MONO% 5.6 % (1.7-9.3); MPV 9.4 FL (7.4-10.4); NEUT# 6.44 X1000 (1.4-6.5); NEUT% 71.1 % (42.2-75.2); PLT 194 X1000 (130-400); RBC 2.88 XMIL (4.7-6.1); RDW 14.5 % (11.5-14.5); WBC 9.06 X1000 (4.8-10.8)
[2019-03-28 07:33] LABS: CALCIUM 9.1 mg/dL (8.8-10.2); CREATININE 2.5 mg/dL (0.7-1.2)
--- NOTE | 2019-03-28 08:30 | NEPHROLOGY PROGRESS NOTE ---
DATE: 03/28/2019 SUBJECTIVE: Patient resting in bed. No complaints this morning. OBJECTIVE: Vital Signs: Temperature 97.9 degrees, pulse 69, respiratory rate 17, blood pressure 147/90, intake 3 L, output 4.2 L. General: This is an elderly gentleman resting in bed. He is awake and alert. He does not appear in acute distress. HEENT: Normocephalic, atraumatic. JHOAN. Neck: Supple without JVD. Cardiovascular: Regular rate and rhythm. Pulmonary: He is clear bilaterally. Abdomen: Soft, positive bowel sounds. : Not inspected. Extremities: No clubbing, cyanosis. Trace lower extremity edema. Integumentary: Skin is warm and dry. LAB DATA: Creatinine 2.5. ASSESSMENT AND PLAN: 1. Acute overlying chronic kidney disease. He remains in his historical baseline renal function. No changes are needed to his current treatment plan. 2. Pyelonephritis, on appropriately dosed antibiotics. DISPOSITION: He can be discharged at the discretion of the primary. Dictated by TARA Livingston for Jus Villarreal MD Face to face encounter, data reviewed, discussed with Kg Johnson on 03/28/19. I agree with the above assessment and plan of care. cc: MD Mike Briceno MD [facility]
[2019-03-28] MEDS: CYMBALTA PO SCH (09:13)
[2019-03-28] MEDS: PROSCAR PO SCH (09:14)
[2019-03-28] MEDS: MIRALAX PO SCH (09:14)
[2019-03-28] MEDS: FLOMAX PO SCH ×2 (09:14→20:27)
[2019-03-28] MEDS: LASIX PO SCH (09:14)
[2019-03-28] MEDS: NORVASC PO SCH (09:14)
[2019-03-28] MEDS: PROTONIX PO SCH ×2 (09:15→17:43)
[2019-03-28] MEDS: PROTONIX IV SCH (09:15)
[2019-03-28] MEDS: SYNTHROID PO SCH (09:15)
[2019-03-28] MEDS: ZYLOPRIM PO SCH (09:15)
[2019-03-28] MEDS: SODIUM CHLORIDE 0.9% INJ SCH (09:16)
[2019-03-28] MEDS: NS 1,000 ML IV SCH (19:41)
[2019-03-28] MEDS: LOVENOX SUBQ SCH (20:27)
[2019-03-28] MEDS: METAMUCIL PO SCH (20:27)
[2019-03-28] MEDS: SENOKOT PO SCH (20:29)
--- NOTE | 2019-03-28 22:11 | PROGRESS NOTE ---
DATE: 03/28/2019 SUBJECTIVE: The patient is better. Dr. Romano wants to do surgery. He is reluctant to do so. He has a chronic indwelling Werner catheter. OBJECTIVE: Vital signs: Temperature is 98 degrees, pulse 75, blood pressure is stable. HEENT: Within normal limits. Neck: Supple. Chest: Bilateral air entry. Heart: Sounds are regular. Abdomen: Belly is soft, nontender. Good bowel sounds. Neurological: No neurological deficits. LABS: CBC: White cell count 9.0, hematocrit 28.6, platelets 194,000. Sodium 137, potassium 5, chloride 105, BUN 58, creatinine 2.5. Glucose 130. Repeat blood cultures are pending. ASSESSMENT AND PLAN: 1. Extended spectrum beta-lactamase pyelonephritis on the left side. Continue on IV Primaxin. 2. Benign prostatic hypertrophy, on Flomax. 3. Chronic indwelling Werner catheter. 4. Chronic kidney disease, came back to the baseline. Since hemodynamics stable, decreased IV fluids. 5. Deep vein thrombosis and gastrointestinal prophylaxis. 6. Hypertension, currently on amlodipine. The patient has a bed and repeat blood cultures today. We will discuss with Dr. Romano and, hopefully, he will be transferred to the rehab on Wednesday. LEVEL OF DOCUMENTATION: 25 minutes. cc: Mike Dudley MD
[2019-03-29] MEDS: NS 1,000 ML IV SCH ×2 (02:26→14:24)
[2019-03-29] MEDS: NORCO-10 PO PRN ×3 (04:15→23:00)
[2019-03-29] MEDS: HUMALOG SUBQ SCH ×4 (06:10→21:11)
[2019-03-29] MEDS: PRIMAXIN 500 MG in NS 100 ML IV SCH ×2 (07:20→15:14)
[2019-03-29] MEDS: PROSCAR PO SCH (10:28)
[2019-03-29] MEDS: NORVASC PO SCH (10:28)
[2019-03-29] MEDS: PROTONIX PO SCH (10:28)
[2019-03-29] MEDS: FLOMAX PO SCH ×2 (10:28→20:08)
[2019-03-29] MEDS: LASIX PO SCH (10:28)
[2019-03-29] MEDS: SYNTHROID PO SCH (10:28)
[2019-03-29] MEDS: MIRALAX PO SCH (10:28)
[2019-03-29] MEDS: ZANAFLEX PO PRN ×2 (10:28→19:54)
[2019-03-29] MEDS: CYMBALTA PO SCH (10:28)
[2019-03-29] MEDS: ZYLOPRIM PO SCH (10:28)
--- NOTE | 2019-03-29 13:43 | NEPHROLOGY PROGRESS NOTE ---
DATE: 03/29/2019 SUBJECTIVE: The patient resting in bed. He states that he is waiting for a rehab facility. OBJECTIVE: VITAL SIGNS: Temperature 97.2 degrees, pulse 63, respiratory rate 18, blood pressure 126/66. Intake 3 L, output 4.2 L via Werner catheter. PHYSICAL EXAMINATION: General: This is an elderly gentleman resting in bed. He does not appear in acute distress. HEENT: Normocephalic, atraumatic. PERRL. Neck: Supple. He has no JVD in a reclined position. Cardiovascular: Reveals a regular rate and rhythm without murmur. Pulmonary: He is clear bilaterally with equal excursion. Abdomen: Soft, positive bowel sounds. Nontender. Genitourinary: Werner catheter. Extremities: No clubbing, cyanosis. He continues with some trace lower extremity edema. He is moving all extremities. Integumentary: Skin remains warm and dry. Somewhat scaly. LABORATORY DATA: No new chemistries today. His creatinine yesterday was 2.5 and had been stable at that for several days. ASSESSMENT AND PLAN: 1. Acute overlying chronic kidney disease, resolved. Patient remains at his historical renal function. We will continue to monitor while he is in the hospital. 2. Pyelonephritis. He is on Primaxin. 3. Hypertension, controlled. 4. Disposition. I think Primary is targeting for transfer to rehab by the end of this week. Dictated by TARA Livingston for Jus Villarreal MD Face to face encounter, data reviewed, discussed with Kg Johnson on 03/29/19. I agree with the above assessment and plan of care. cc: MD Mike Briceno MD MTDD
[2019-03-29] MEDS: DULCOLAX PR PRN (15:20)
[2019-03-29] MEDS: SENOKOT PO SCH (20:08)
[2019-03-29] MEDS: LOVENOX SUBQ SCH (20:08)
[2019-03-29] MEDS: METAMUCIL PO SCH (20:08)
--- NOTE | 2019-03-29 22:07 | PROGRESS NOTE ---
DATE: 03/29/2019 SUBJECTIVE: The patient is getting better. He does not want to do any TURP. He has indwelling Werner catheter, and he is back to the baseline. OBJECTIVE: Vital signs: Temperature is 97, pulse 76, and blood pressure is 154/90. HEENT: Within normal limits. Neck: Supple. Chest: Clear. Cardiovascular: Heart sounds are regular. Abdomen: Belly is soft, nontender. No neurological deficits. Blood sugars are 140. Creatinine 2.5. Repeat blood cultures are pending. ASSESSMENT AND PLAN: 1. Extended spectrum beta-lactamase Escherichia coli pyelonephritis, better. 2. Acute kidney injury improving and discontinue the IV fluids slowly. 3. Deep venous thrombosis and gastrointestinal prophylaxis. 4. Hypertension is stable. 5. Waiting for the [facility] placement. We will discuss with social work faculty member. Continue present treatment. LEVEL OF DOCUMENTATION: 25 minutes. cc: Mike Dudley MD
[2019-03-30] MEDS: PRIMAXIN 500 MG in NS 100 ML IV SCH ×3 (00:12→16:32)
[2019-03-30] MEDS: ZANAFLEX PO PRN ×3 (03:47→18:02)
[2019-03-30] MEDS: APRESOLINE PO SCH ×2 (06:54→14:10)
[2019-03-30] MEDS: NORCO-10 PO PRN ×3 (08:46→23:30)
[2019-03-30] MEDS: ZYLOPRIM PO SCH (08:48)
[2019-03-30] MEDS: CYMBALTA PO SCH (08:48)
[2019-03-30] MEDS: PROTONIX PO SCH (08:48)
[2019-03-30] MEDS: PROSCAR PO SCH (08:48)
[2019-03-30] MEDS: MIRALAX PO SCH (08:48)
[2019-03-30] MEDS: LASIX PO SCH (08:48)
[2019-03-30] MEDS: FLOMAX PO SCH ×2 (08:48→21:07)
[2019-03-30] MEDS: SYNTHROID PO SCH (08:48)
[2019-03-30] MEDS: NORVASC PO SCH (08:48)
[2019-03-30 10:52] LABS: URINE SOURCE CATH
[2019-03-30 10:59] LABS: UR EPITHELIAL CELLS <10 /HPF (<10); URINE BACTERIA NEGATIVE /HPF; URINE RBC TNTC /HPF (<10)
[2019-03-30 11:00] LABS: BILIRUBIN URINE NEGATIVE (NEGATIVE); BLOOD URINE MODERATE (NEGATIVE); COLOR YELLOW; GLUCOSE URINE NEGATIVE (NEGATIVE); KETONE URINE NEGATIVE (NEGATIVE); LEUKOCYTES URINE MODERATE (NEGATIVE); NITRITE URINE NEGATIVE (NEGATIVE); PROTEIN URINE 30 mg/dL (NEGATIVE); SP GRAVITY URINE 1.009; TURBIDITY URINE CLEAR (CLEAR); UROBILINOGEN URINE 2 mg/dL (NORMAL)
--- NOTE | 2019-03-30 14:09 | NEPHROLOGY PROGRESS NOTE ---
DATE: 03/30/2019 SUBJECTIVE: Patient resting in bed in no acute distress. OBJECTIVE: Vital Signs: Temperature 97.5 degrees, pulse 80, respiratory rate 16, blood pressure 154/98. Intake 2.8 L, output 4.1 L. General: This is an elderly gentleman resting in bed. He does not appear in distress. HEENT: Is normocephalic, atraumatic. JHOAN. Neck is supple without JVD. Cardiovascular: Regular rate and rhythm. Pulmonary: Clear bilaterally. Abdomen: Soft, positive bowel sounds. : Werner catheter. Extremities: No clubbing, cyanosis. Trace lower extremity edema. He continues to move all extremities. Integumentary: Skin is warm and dry. LABORATORY DATA: None today. ASSESSMENT AND PLAN: 1. Acute overlying chronic kidney disease. Resolved at baseline around 2.5. No changes to current treatment plan. We will sign off. jennifer 2. Pyelonephritis. On appropriately dosed antibiotics. 3. Disposition. I think the plan is still for him to be transferred to rehab in the next day or so. Dictated by TARA Livingston for Jus Villarreal MD Face to face encounter, data reviewed, discussed with Kg Johnson on 03/30/19. I agree with the above assessment and plan of care. rg cc: MD Mike Briceno MD [facility]
[2019-03-30] MEDS: HUMALOG SUBQ SCH ×3 (16:17→21:04)
[2019-03-30] MEDS: NS 1,000 ML IV SCH (16:33)
[2019-03-30] MEDS: SENOKOT PO SCH (21:07)
[2019-03-30] MEDS: LOVENOX SUBQ SCH (21:07)
[2019-03-30] MEDS: METAMUCIL PO SCH (21:07)
--- NOTE | 2019-03-30 21:31 | PROGRESS NOTE ---
DATE: 03/30/2019 SUBJECTIVE: The patient is medically stable. Has some pain in the left side of the neck. REVIEW OF SYSTEMS: None reported. PHYSICAL EXAMINATION: Temperature is 97.9 degrees, pulse 79, blood pressure 149/86.HEENT: Within normal limits. Neck: Supple. No lymphadenopathy. Chest: Clear to auscultation. Heart: Sounds are regular. Abdomen: Belly is soft, nontender. Good bowel sounds. INVESTIGATIONS: Repeat blood cultures were negative for E coli. ASSESSMENT AND PLAN: 1. Pyelonephritis with extended spectrum beta-lactamases coli sepsis, stable. 2. Change the Werner. 3. The patient is not wishing for transurethral resection of prostate. 4. When medically stable attempt to discharge to the [facility]. I spoke to the web content & social media manager and the bed is ready. Patient will be discharged and continue present treatment. cc: Mike Dudley MD
[2019-03-31] MEDS: APRESOLINE PO SCH ×4 (00:13→23:03)
[2019-03-31] MEDS: ZANAFLEX PO PRN ×4 (00:13→23:04)
[2019-03-31] MEDS: PRIMAXIN 500 MG in NS 100 ML IV SCH ×3 (00:21→16:57)
[2019-03-31] MEDS: HUMALOG SUBQ SCH ×4 (03:22→20:52)
[2019-03-31] MEDS: NS 1,000 ML IV SCH (04:18)
[2019-03-31] MEDS: MIRALAX PO SCH (09:04)
[2019-03-31] MEDS: LASIX PO SCH (09:04)
[2019-03-31] MEDS: NORVASC PO SCH (09:04)
[2019-03-31] MEDS: FLOMAX PO SCH ×2 (09:04→20:02)
[2019-03-31] MEDS: PROSCAR PO SCH (09:04)
[2019-03-31] MEDS: ZYLOPRIM PO SCH (09:04)
[2019-03-31] MEDS: SYNTHROID PO SCH (09:04)
[2019-03-31] MEDS: PROTONIX PO SCH (09:04)
[2019-03-31] MEDS: CYMBALTA PO SCH (09:05)
[2019-03-31] MEDS ORDERED: AMBIEN PO PRN (10:35)
[2019-03-31] MEDS: NORCO-10 PO PRN ×2 (11:16→20:52)
[2019-03-31] MEDS: SENOKOT PO SCH (20:02)
[2019-03-31] MEDS: METAMUCIL PO SCH (20:02)
[2019-03-31] MEDS: LOVENOX SUBQ SCH (20:02)
--- NOTE | 2019-03-31 20:19 | PROGRESS NOTE ---
DATE: 03/31/2019 SUBJECTIVE: A 74-year-old white male admitted to the hospital for ESBL Escherichia coli sepsis. Doing better, waiting for placement. Discussed with the social media intern working for bed placement. OBJECTIVE: Vital Signs: Temperature is 98 degrees. Pulse 73. Vitals are stable. HEENT: Within normal limits. Neck: Supple. Chest: Clear. Heart: Sounds are regular. Belly is soft, nontender. Werner was replaced yesterday. INVESTIGATIONS: Repeat blood cultures were negative as well as urine culture. ASSESSMENT AND PLAN: 1. ESBL Escherichia coli sepsis, better, currently on IV imipenem. 2. Hypothyroidism on Synthroid. 3. Eating well, discontinue IV fluids. 4. Deconditioning. Waiting for placement. 5. Deep venous thrombosis and gastrointestinal prophylaxis as per order sheet. 6. Hypertension on amlodipine 5 mg daily. 7. Benign prostatic hypertrophy on Flomax and finasteride. 8. Gout on allopurinol. 9. Chronic kidney disease stable. 10. Acute kidney injury and chronic Renal Failure better. DISPOSITION: Waiting for placement. Continue present treatment. LEVEL OF DOCUMENTATION: 25 minutes. cc: Mike Dudley MD MTDTiki
[2019-04-01] MEDS: PRIMAXIN 500 MG in NS 100 ML IV SCH ×3 (00:12→16:07)
[2019-04-01] MEDS: NORCO-10 PO PRN ×3 (03:09→18:11)
[2019-04-01] MEDS: ZANAFLEX PO PRN ×3 (05:15→20:53)
[2019-04-01] MEDS: HUMALOG SUBQ SCH ×4 (06:18→22:17)
[2019-04-01] MEDS: APRESOLINE PO SCH ×3 (06:30→22:16)
[2019-04-01] MEDS: CYMBALTA PO SCH (08:23)
[2019-04-01] MEDS: LASIX PO SCH (08:24)
[2019-04-01] MEDS: MIRALAX PO SCH (08:24)
[2019-04-01] MEDS: PROSCAR PO SCH (08:25)
[2019-04-01] MEDS: NORVASC PO SCH (08:25)
[2019-04-01] MEDS: PROTONIX PO SCH (08:26)
[2019-04-01] MEDS: SYNTHROID PO SCH (08:26)
[2019-04-01] MEDS: ZYLOPRIM PO SCH (08:26)
[2019-04-01] MEDS: FLOMAX PO SCH ×2 (08:26→20:53)
--- NOTE | 2019-04-01 14:41 | PROGRESS NOTE ---
DATE: 04/01/2019 A 74-year-old, white gentleman, admitted with diffuse abdominal pain, left flank pain. The patient had acute on chronic renal failure. His renal function was deteriorating. Patient also found to have hyperkalemia. The patient had multiple medical problems. The patient was admitted to the hospital. The patient already had a Werner catheter. The patient hospitalization he developed ESBL positive E coli in the urine and also in the blood stream. Patient is getting IV Invanz. Patient clinical condition seems to be getting better. Patient is feeling weak. He does have deconditioning complaining of leg cramps. His renal function improving. No typical chest pain or palpitations. No high-grade fever or chills. Mild cough. No expectoration. Oral intake is fair. No diarrhea, blood, or mucus in the stool. History part is limited. Admission history, physical and consultation noted. PAST MEDICAL HISTORY: Significant for metabolic syndrome, chronic kidney disease, hypertension, gastritis and reflux disease, gout, hypothyroidism, NIDDM, chronic back pain, paroxysmal atrial fibrillation. OBJECTIVE: Vital Signs: Blood pressure 128/48, pulse 67, respirations 15, temperature 97.4 degrees. Skin: Senile turgor. Neck: Supple. No JVD. Lungs: Bibasilar crepitation. No rales. CVS: S1 and S2 heard. Abdomen: Soft. No distention. Bowel sounds present. Extremities: No cyanosis, clubbing. No acute DVT. Peripheral pulsation intact. COOLING PAN TENDER: Alert, awake, able to move all 4 limbs. LAB: His last lab done on March 28 noted last BUN 58, creatinine 2.5. MEDICAL PROBLEMS: 1. Include Escherichia coli sepsis urinary tract infection and pyelonephritis. 2. Paroxysmal atrial fibrillation. 3. Acute on chronic kidney disease. 4. Hypothyroidism. 5. Deconditioning. 6. Hypertension. 7. Benign prostatic hypertrophy . 8. Gout. Patient is waiting for placement. Current medication noted and continued. I am going to check appropriate lab tomorrow morning. Continue rest of the treatment and close observation. cc: MD Mike Rosales MD
[2019-04-01] MEDS: SENOKOT PO SCH (20:53)
[2019-04-01] MEDS: LOVENOX SUBQ SCH (20:53)
[2019-04-01] MEDS: METAMUCIL PO SCH ×2 (22:17→22:19)
[2019-04-02] MEDS: PRIMAXIN 500 MG in NS 100 ML IV SCH ×3 (00:20→15:18)
[2019-04-02] MEDS: NORCO-10 PO PRN ×3 (01:54→17:03)
[2019-04-02] MEDS: APRESOLINE PO SCH ×3 (05:37→23:12)
[2019-04-02] MEDS: ZANAFLEX PO PRN ×3 (05:38→20:49)
[2019-04-02 06:11] LABS: BASO# 0.04 X1000 (0.0-0.2); BASO% 0.6 % (0.0-0.8); EOS# 0.38 X1000 (0.0-0.7); EOS% 5.3 % (0.0-10.0); HEMATOCRIT 32.6 % (42.0-52.0); HEMOGLOBIN 10.4 g/dL (14.0-18.0); IMM GRAN# 0.02 X1000 (0.0-0.04); IMM GRAN% 0.3 % (0.0-0.5); LYMPH# 1.57 X1000 (1.2-3.4); LYMPH% 22.1 % (20.5-51.1); MCH 31.7 PG (27-31); MCHC 31.9 g/dL (33-37); MCV 99.4 FL (81-99); MONO# 0.41 X1000 (0.11-0.59); MONO% 5.8 % (1.7-9.3); NEUT% 65.9 % (42.2-75.2); PLT 203 X1000 (130-400); RBC 3.28 XMIL (4.7-6.1); WBC 7.12 X1000 (4.8-10.8)
[2019-04-02] MEDS: HUMALOG SUBQ SCH ×3 (06:24→20:50)
[2019-04-02 06:57] LABS: ALBUMIN 3.4 g/dL (3.5-5.0); CALCIUM 9.8 mg/dL (8.8-10.2); CREATININE 2.2 mg/dL (0.7-1.2); MAGNESIUM 1.8 mg/dL (1.5-2.7); POTASSIUM 5.5 mmol/L (3.5-5.1); TOTAL BILIRUBIN 0.3 mg/dL (0.20-1.00); TOTAL PROTEIN 6.9 g/dL (6.3-8.3)
[2019-04-02] MEDS: MIRALAX PO SCH (08:34)
[2019-04-02] MEDS: ZYLOPRIM PO SCH (08:35)
[2019-04-02] MEDS: PROTONIX PO SCH (08:35)
[2019-04-02] MEDS: NORVASC PO SCH (08:35)
[2019-04-02] MEDS: LASIX PO SCH (08:35)
[2019-04-02] MEDS: SYNTHROID PO SCH (08:35)
[2019-04-02] MEDS: PROSCAR PO SCH (08:36)
[2019-04-02] MEDS: CYMBALTA PO SCH (08:36)
[2019-04-02] MEDS: FLOMAX PO SCH ×2 (10:00→20:45)
[2019-04-02] MEDS ORDERED: KAYEXALATE PO ONE (12:15)
--- NOTE | 2019-04-02 13:11 | PROGRESS NOTE ---
DATE: 04/02/2019 SUBJECTIVE: Mr. Odell is doing fair. No high-grade fever or chills. Denied any nausea or vomiting. This morning, blood pressure was low-normal. The patient is bed-bound, needing rehab for deconditioning. The patient had sepsis due to ESBL-positive Escherichia coli. No heat or cold intolerance. Oral intake is fair. OBJECTIVE: Vital Signs: Noted. Neck: Supple. No JVD. Lungs: Bibasilar crepitations. Heart: S1 and S2 heard. Abdomen: Soft, globular. Bowel sounds present. Extremities: No cyanosis, clubbing. No acute DVT. BRAND COMMUNICATIONS MANAGER: Alert, awake, able to move all 4 limbs. LABORATORY DATA: Lab data done today shows WBC count 7.12, hemoglobin 10.4, hematocrit 32.6, platelets 203,000. His potassium was 5.5, BUN 66, creatinine 2.2. ASSESSMENT: Includes: 1. Extended spectrum beta-lactamase positive Escherichia coli sepsis, on Primaxin. 2. Hyperkalemia. 3. Chronic kidney disease stage 3 to 4. 4. Hypothyroidism. 5. Hypertension. 6. Benign prostatic hypertrophy. Lab and medication noted. I am going to treat him with Kayexalate. Continue rest of the treatment and close observation. cc: MD Mike Rosales MD
[2019-04-02 13:25] LABS: CALCIUM 9.4 mg/dL (8.8-10.2); CREATININE 2.4 mg/dL (0.7-1.2); POTASSIUM 5.3 mmol/L (3.5-5.1)
[2019-04-02] MEDS: LOVENOX SUBQ SCH (20:45)
[2019-04-02] MEDS: SENOKOT PO SCH (20:45)
[2019-04-02] MEDS: METAMUCIL PO SCH (20:45)
[2019-04-03] MEDS: NORCO-10 PO PRN ×3 (01:55→16:46)
[2019-04-03] MEDS: PRIMAXIN 500 MG in NS 100 ML IV SCH ×4 (01:59→23:29)
[2019-04-03] MEDS: HUMALOG SUBQ SCH ×5 (04:23→20:49)
[2019-04-03] MEDS: ZANAFLEX PO PRN ×2 (05:04→20:48)
[2019-04-03] MEDS: APRESOLINE PO SCH ×3 (06:51→23:32)
[2019-04-03] MEDS: CYMBALTA PO SCH (08:55)
[2019-04-03] MEDS: NORVASC PO SCH (08:55)
[2019-04-03] MEDS: ZYLOPRIM PO SCH (08:55)
[2019-04-03] MEDS: PROTONIX PO SCH (08:55)
[2019-04-03] MEDS: SYNTHROID PO SCH (08:55)
[2019-04-03] MEDS: LASIX PO SCH (08:55)
[2019-04-03] MEDS: FLOMAX PO SCH ×2 (08:55→20:48)
[2019-04-03] MEDS: PROSCAR PO SCH (08:55)
[2019-04-03] MEDS: MIRALAX PO SCH (08:58)
[2019-04-03] MEDS: DULCOLAX PR PRN (14:39)
--- NOTE | 2019-04-03 19:45 | PROGRESS NOTE ---
DATE: 04/03/2019 SUBJECTIVE: The patient is doing well. No events noted over the weekend. REVIEW OF SYSTEMS: None reported. Waiting for placement. OBJECTIVE: Vital signs: Temperature is 98 degrees, pulse is 100, blood pressure is stable. HEENT: Within normal limits. Neck: Supple. No lymphadenopathy. Chest: Clear. Cardiovascular: Heart sounds are regular. Abdomen: Belly is soft, nontender. Musculoskeletal: Bedridden. Genitourinary: A Werner was placed. INVESTIGATIONS OVER THE WEEKEND: CBC: White cell count 7, hematocrit 32, platelets 203,000. Sodium 137, potassium 5.3, chloride 104, BUN 70, creatinine 2.4, glucose 109. LFTs were normal. Repeat urine cultures were negative. ASSESSMENT AND PLAN: 1. Escherichia coli extended spectrum beta-lactamase sepsis syndrome. IV Primaxin. 2. Chronic kidney disease, stable. 3. Acute kidney injury, improving. 4. Continue deep venous thrombosis and gastrointestinal prophylaxis. 5. Benign prostatic hypertrophy on Flomax and finasteride. 6. Gout on Zyloprim. Patient is medically stable. Waiting for placement. We will discuss with the social security assessor today. DHR was involved and continue wound care. LEVEL OF DOCUMENTATION: 15 minutes. cc: Mike Dudley MD
[2019-04-03] MEDS: SENOKOT PO SCH (20:48)
[2019-04-03] MEDS: LOVENOX SUBQ SCH (20:48)
[2019-04-03] MEDS: METAMUCIL PO SCH (20:48)
[2019-04-04] MEDS: NORCO-10 PO PRN ×4 (01:51→20:59)
[2019-04-04] MEDS: APRESOLINE PO SCH ×3 (06:03→22:02)
[2019-04-04] MEDS: ZANAFLEX PO PRN ×2 (06:03→19:46)
[2019-04-04] MEDS: HUMALOG SUBQ SCH ×4 (06:04→20:59)
[2019-04-04] MEDS: PRIMAXIN 500 MG in NS 100 ML IV SCH ×2 (07:56→16:34)
[2019-04-04] MEDS: SYNTHROID PO SCH (08:01)
[2019-04-04] MEDS: ZYLOPRIM PO SCH (08:02)
[2019-04-04] MEDS: FLOMAX PO SCH ×2 (08:02→20:59)
[2019-04-04] MEDS: CYMBALTA PO SCH (08:02)
[2019-04-04] MEDS: LASIX PO SCH (08:03)
[2019-04-04] MEDS: PROSCAR PO SCH (08:03)
[2019-04-04] MEDS: PROTONIX PO SCH (08:03)
[2019-04-04] MEDS: MIRALAX PO SCH (08:05)
[2019-04-04] MEDS: NORVASC PO SCH (08:06)
[2019-04-04] MEDS: SENOKOT PO SCH (20:59)
[2019-04-04] MEDS: LOVENOX SUBQ SCH (20:59)
[2019-04-04] MEDS: METAMUCIL PO SCH (20:59)
--- NOTE | 2019-04-04 21:24 | PROGRESS NOTE ---
DATE: 04/04/2019 SUBJECTIVE: The patient is doing better. He wants to get out of the bed. I requested nursing staff to involve physical therapy to keep him out of the bed. He is medically stable, waiting for placement. I have not thought anything from social research assistant. There is no male bed [facility]. Otherwise no complaints. OBJECTIVE: Vital signs: Temperature is 98, pulse 80, blood pressure is 140/75. HEENT: Within normal limits. Neck: Supple. Chest: Clear to auscultation. Cardiovascular: Heart sounds are regular. Abdomen: Belly is soft, nontender. Neurological: No neurological deficits. Blood sugars are running fine. ASSESSMENT AND PLAN: 1. Escherichia coli sepsis is better and continue on IV antibiotics. 2. Deep vein thrombosis and gastrointestinal prophylaxis. 3. Chronic kidney disease, stable. 4. Hypertension, stable. 5. History of hypotension, bradycardia, stable. 6. Gout stable. Medically stable. Waiting for placement. As soon as a bed is available will be transferred to the rehab and out of the bed with PT today. LEVEL OF DOCUMENTATION: 15 minutes. cc: Mike Dudley MD MTDD
[2019-04-05] MEDS: PRIMAXIN 500 MG in NS 100 ML IV SCH (01:22)
[2019-04-05] MEDS: ZANAFLEX PO PRN ×3 (03:32→20:52)
[2019-04-05] MEDS: APRESOLINE PO SCH ×2 (06:26→15:07)
[2019-04-05] MEDS: HUMALOG SUBQ SCH ×4 (06:34→20:42)
[2019-04-05] MEDS: MIRALAX PO SCH (08:42)
[2019-04-05] MEDS: MACRODANTIN PO SCH ×2 (08:46→20:52)
[2019-04-05] MEDS: NORCO-10 PO PRN ×2 (08:46→17:18)
[2019-04-05] MEDS: SYNTHROID PO SCH (08:46)
[2019-04-05] MEDS: CYMBALTA PO SCH (08:46)
[2019-04-05] MEDS: ZYLOPRIM PO SCH (08:46)
[2019-04-05] MEDS: PROSCAR PO SCH (08:47)
[2019-04-05] MEDS: PROTONIX PO SCH (08:47)
[2019-04-05] MEDS: LASIX PO SCH (08:47)
[2019-04-05] MEDS: NORVASC PO SCH (08:47)
[2019-04-05] MEDS: FLOMAX PO SCH ×2 (08:47→20:52)
[2019-04-05] MEDS: METAMUCIL PO SCH (20:51)
[2019-04-05] MEDS: LOVENOX SUBQ SCH (20:52)
[2019-04-05] MEDS: SENOKOT PO SCH (20:52)
--- NOTE | 2019-04-05 21:35 | PROGRESS NOTE ---
DATE: 04/05/2019 SUBJECTIVE: The patient is doing better. Medically stable. He is getting out of the bed. No complaints. EXAM: Vitals are stable. Physical examination, no change. ASSESSMENT AND PLAN: 1. Escherichia coli, extended spectrum beta-lactamases. Discontinue Primaxin changing to Macrobid. 2. Out of the bed with physical therapy. Continue present treatment. Waiting for placement. 3. Care of the skin, bladder, and bowels, and continue present treatment. LEVEL OF DOCUMENTATION: 15 minutes. cc: Mike Dudley MD
[2019-04-06] MEDS: APRESOLINE PO SCH ×3 (01:58→14:42)
[2019-04-06] MEDS: NORCO-10 PO PRN ×3 (02:03→17:53)
[2019-04-06] MEDS: HUMALOG SUBQ SCH ×4 (06:13→20:34)
[2019-04-06] MEDS: ZANAFLEX PO PRN ×3 (06:23→20:34)
[2019-04-06] MEDS: MIRALAX PO SCH (08:40)
[2019-04-06] MEDS: ZYLOPRIM PO SCH (08:40)
[2019-04-06] MEDS: PROTONIX PO SCH (08:40)
[2019-04-06] MEDS: MACRODANTIN PO SCH ×2 (08:41→20:34)
[2019-04-06] MEDS: NORVASC PO SCH (08:41)
[2019-04-06] MEDS: CYMBALTA PO SCH (08:41)
[2019-04-06] MEDS: SYNTHROID PO SCH (08:41)
[2019-04-06] MEDS: LASIX PO SCH (08:41)
[2019-04-06] MEDS: FLOMAX PO SCH ×2 (08:41→20:34)
[2019-04-06] MEDS: PROSCAR PO SCH (08:41)
[2019-04-06] MEDS: LOVENOX SUBQ SCH (20:34)
[2019-04-06] MEDS: SENOKOT PO SCH (20:34)
[2019-04-06] MEDS: METAMUCIL PO SCH (20:34)
--- NOTE | 2019-04-06 21:07 | PROGRESS NOTE ---
DATE: 04/06/2019 SUBJECTIVE: The patient is in good spirits, doing very well. No complaints. OBJECTIVE: Vital signs: On examination vitals are stable. HEENT exam: Within normal limits. Neck: Is supple. No lymphadenopathy. No goiter. Chest: Bilateral air entry. Heart: Sounds are regular. Abdomen: Belly is soft, nontender. Good bowel sounds and stable. ASSESSMENT AND PLAN: 1. Escherichia coli pyelonephritis, extended spectrum beta-lactamases, stable on Macrobid. 2. Hypertension is stable. I spoke with the social work supervisor. Waiting to be placed in skilled nursing and continue outpatient out of the bed with physical therapy LEVEL OF DOCUMENTATION: 15 minutes. cc: Miek Dudley MD
--- NOTE | 2019-04-06 21:55 | DISCHARGE SUMMARY ---
ADMISSION DATE: 03/20/2019 DISCHARGE DATE: 04/13/2019 DISCHARGING DIAGNOSES: 1. Sepsis syndrome due to extended spectrum beta-lactamases positive Escherichia coli with left pyelonephritis. 2. Benign prostatic hypertrophy with chronic indwelling catheter. 3. Paroxysmal atrial fibrillation. 4. Acute kidney injury with chronic renal failure. Baseline creatinine 2.6, metabolic syndrome. 5. Decreased performance status. 6. Hypertension. 7. Acid reflux disease. 8. Gout. 9. Hypothyroidism. 10. Type 2 diabetes. 11. Chronic back pain with multiple back surgeries and C-spine fusion. CONSULTS: Dr. Romano and Dr. Villarreal. BRIEF HISTORY: Please see the H and P that was done on 03/20/2019. In brief, he is a 74-year-old white gentleman I used to see him last year and he has [facility] since he had multiple back problems. I have not seen in my office for a while. Nevertheless, he came in with abdominal pain, suprapubic area associated with worsening of kidney injury, underlying chronic renal failure, hyperkalemia, hypotension, bradycardia. The patient was admitted on the floor. HOSPITAL COURSE: 1. For hypotension, he was given IV fluids. 2. Hyperkalemia. Initially, was given calcium, gluconate, Kayexalate. 3. Acute kidney injury. The patient has a Werner catheter that was placed draining the urine. After hydration renal function slowly came back to the baseline. He does not need any renal replacement therapy. 4. Blood cultures were positive for E coli which is ESBL positive for which he was given IV imipenem for 10 days. It is subsequently changed to Macrobid. 5. He is mostly bedridden. Needs 24/7 care. The patient was given the physical therapy to keep him out of the bed. 6. Type 2 diabetes on diet control with the following insulin sliding scale insulin coverage. DISPOSITION: Will be delayed because of the waiting to be placement. There were no male beds. LABS: CBC: White cell count 7.1, hematocrit 32, platelets 203,000. Sodium 137, potassium 5.3, BUN 70, creatinine 2.4, glucose 132. LFTs were normal. Blood sugars are running well. I did replace the new Werner catheter. The patient is refusing for any TURP at this time. Repeat blood cultures were negative for E coli. Initial blood cultures, urine cultures E coli positive and repeat blood cultures 03/30/2019 were negative and also urine cultures. DISCHARGE INSTRUCTIONS ARE FOLLOWS: 1. Care of the skin, bladder, and bowels. 2. Out of the bed with physical therapy. 3. Senna 1 tablet at bedtime, Macrobid 50 p.o. b.i.d. for 10 days and change the Werner catheter every month. Allopurinol 100 daily, amlodipine 5 daily, Dulcolax as needed, Cymbalta 30 daily, Proscar 5 mg daily, , [place] 1 tab q.6h as needed for pain, Synthroid 175 mcg daily, Protonix 40 mg daily, MiraLAX 17 g daily, Flomax 0.4 one daily, Zanaflex 4 mg q.6h as needed, Ambien 10 at bedtime. 4. Follow up rehab placement. cc: Mike Dudley MD MTDD
[2019-04-07] MEDS: APRESOLINE PO SCH ×3 (03:13→14:57)
[2019-04-07] MEDS: NORCO-10 PO PRN ×3 (03:16→20:20)
[2019-04-07] MEDS: ZANAFLEX PO PRN ×2 (06:00→15:50)
[2019-04-07] MEDS: HUMALOG SUBQ SCH ×4 (06:00→20:18)
[2019-04-07] MEDS: MACRODANTIN PO SCH ×2 (08:24→20:19)
[2019-04-07] MEDS: SYNTHROID PO SCH (08:24)
[2019-04-07] MEDS: CYMBALTA PO SCH (08:24)
[2019-04-07] MEDS: PROTONIX PO SCH (08:24)
[2019-04-07] MEDS: PROSCAR PO SCH (08:24)
[2019-04-07] MEDS: FLOMAX PO SCH ×2 (08:25→20:20)
[2019-04-07] MEDS: ZYLOPRIM PO SCH (08:25)
[2019-04-07] MEDS: MIRALAX PO SCH (11:08)
[2019-04-07] MEDS: NORVASC PO SCH (11:08)
[2019-04-07] MEDS: SENOKOT PO SCH (20:20)
[2019-04-07] MEDS: METAMUCIL PO SCH (20:20)
[2019-04-07] MEDS: LOVENOX SUBQ SCH (20:20)
--- NOTE | 2019-04-07 21:15 | PROGRESS NOTE ---
DATE: 04/07/2019 SUBJECTIVE: The patient is stable. Blood pressure is running a little bit low. I spoke to the nurses, to hold the amlodipine and hydralazine if systolic blood pressure less than 100. Other than that, he is stable. He is out of the bed. The patient is negative for the past few days, intake and output. Other than that, no problems. OBJECTIVE: Physical exam, no change. Werner was placed. ASSESSMENT AND PLAN: 1. Escherichia coli extended-spectrum beta-lactamase infection, stable. Changing to Macrobid. 2. Chronic kidney failure, stable. 3. Hypertension. Low. Decrease the Flomax once a day since he has a Werner. Hold the hydralazine, slowly titrate the blood pressure. 4. Disposition: Rehabilitation placement. skid worker is working hard to get a bed. In the meantime we will continue present treatment here. Level of documentation 25 minutes. cc: Mike Dudley MD
[2019-04-08] MEDS: ZANAFLEX PO PRN ×3 (00:25→16:46)
[2019-04-08] MEDS: HUMALOG SUBQ SCH ×3 (06:25→21:48)
[2019-04-08] MEDS: ZYLOPRIM PO SCH (09:11)
[2019-04-08] MEDS: NORVASC PO SCH (09:11)
[2019-04-08] MEDS: CYMBALTA PO SCH (09:11)
[2019-04-08] MEDS: PROSCAR PO SCH (09:11)
[2019-04-08] MEDS: MIRALAX PO SCH (09:11)
[2019-04-08] MEDS: MACRODANTIN PO SCH ×2 (09:11→20:55)
[2019-04-08] MEDS: SYNTHROID PO SCH (09:11)
[2019-04-08] MEDS: PROTONIX PO SCH (09:11)
[2019-04-08] MEDS: FLOMAX PO SCH (09:11)
--- NOTE | 2019-04-08 11:37 | PROGRESS NOTE ---
DATE: 04/08/2019 VITAL SIGNS: Temperature 97.5 degrees, heart rate 75, respirations 18, blood pressure 140/81, O2 saturation on nasal oxygen and at times on room air 100%. LABORATORY: Sugar has ranged from 94 to 163 over the past couple of days. Last BUN and creatinine were 70 and 2.4 on 04/02. HOSPITAL COURSE: There is history of chronic indwelling Werner catheter and BPH. He also has had recent E. coli urinary tract infection and pyelonephritis. Currently, he is on nitrofurantoin 50 mg q. 12 hours. Plans are for rehab on Wednesday. Physical Therapy has assisted in ambulation. He has been up in a chair intermittently. He did not eat any breakfast this morning. cc: MD Mike Tejeda MD
[2019-04-08] MEDS: NORCO-10 PO PRN ×2 (13:46→20:54)
[2019-04-08] MEDS: DULCOLAX PR PRN (13:47)
[2019-04-08] MEDS: METAMUCIL PO SCH (20:55)
[2019-04-08] MEDS: LOVENOX SUBQ SCH (20:55)
[2019-04-08] MEDS: SENOKOT PO SCH (20:55)
[2019-04-09] MEDS: ZANAFLEX PO PRN ×4 (01:03→23:39)
[2019-04-09] MEDS: HUMALOG SUBQ SCH ×4 (06:12→20:21)
[2019-04-09] MEDS: NORCO-10 PO PRN ×3 (06:35→20:19)
[2019-04-09] MEDS: CYMBALTA PO SCH (08:49)
[2019-04-09] MEDS: MACRODANTIN PO SCH ×2 (08:49→20:19)
[2019-04-09] MEDS: PROSCAR PO SCH (08:49)
[2019-04-09] MEDS: ZYLOPRIM PO SCH (08:49)
[2019-04-09] MEDS: NORVASC PO SCH (08:49)
[2019-04-09] MEDS: MIRALAX PO SCH (08:49)
[2019-04-09] MEDS: FLOMAX PO SCH (08:49)
[2019-04-09] MEDS: SYNTHROID PO SCH (08:49)
[2019-04-09] MEDS: PROTONIX PO SCH (08:49)
--- NOTE | 2019-04-09 09:31 | PROGRESS NOTE ---
DATE: 04/09/2019 VITAL SIGNS: Stable with temperature 97.6 degrees, heart rate 65, respirations 16, blood pressure 99/52, O2 saturation on room air 98%. SUBJECTIVE: The patient ate breakfast well this morning. He is feeling a little better. Urine in the Werner is clear. Blood pressure medicine includes amlodipine 5 mg daily. He complains of some leg discomfort, which improves after taking Zanaflex. PLAN: Hopefully rehab tomorrow. cc: MD Mike Tejeda MD
[2019-04-09] MEDS: LOVENOX SUBQ SCH (20:19)
[2019-04-09] MEDS: SENOKOT PO SCH (20:19)
[2019-04-09] MEDS: METAMUCIL PO SCH (20:19)
[2019-04-10] MEDS: HUMALOG SUBQ SCH ×4 (06:13→21:20)
[2019-04-10] MEDS: PROSCAR PO SCH (09:33)
[2019-04-10] MEDS: CYMBALTA PO SCH (09:33)
[2019-04-10] MEDS: NORCO-10 PO PRN ×2 (09:33→20:41)
[2019-04-10] MEDS: MIRALAX PO SCH (09:33)
[2019-04-10] MEDS: FLOMAX PO SCH (09:33)
[2019-04-10] MEDS: ZYLOPRIM PO SCH (09:34)
[2019-04-10] MEDS: NORVASC PO SCH (09:34)
[2019-04-10] MEDS: MACRODANTIN PO SCH ×2 (09:34→20:41)
[2019-04-10] MEDS: PROTONIX PO SCH (09:34)
[2019-04-10] MEDS: SYNTHROID PO SCH (09:34)
[2019-04-10] MEDS: ZANAFLEX PO PRN ×2 (12:52→23:37)
[2019-04-10] MEDS ORDERED: NS 500 ML IV ONE (17:29)
--- NOTE | 2019-04-10 18:39 | PROGRESS NOTE ---
DATE: 04/10/2019 SUBJECTIVE: The patient is still in the hospital setting for a bed. Blood pressure was dropped. The patient was not given any amlodipine, hydralazine. Blood sugar is doing very well. OBJECTIVE: Vital signs: Temperature is 98 degrees, blood pressure 60/36. HEENT: Within normal limits. Neck: Supple. No lymphadenopathy. Chest: Bilateral air entry. Heart: Sounds are regular. : Werner was placed. ASSESSMENT AND PLAN: 1. Extended spectrum beta lactamase Escherichia coli. On nitrofurantoin. 2. Hypotension. Off medications. Could be from Flomax. It is decreased once daily. We will give fluid boluses at 80 mL an hour and repeat the blood pressure and check the labs in the morning, CBC and BMP. Still waiting for the placement LEVEL OF DOCUMENTATION: 25 minutes. cc: Mike Dudley MD
[2019-04-10] MEDS: NS 1,000 ML IV SCH (18:42)
[2019-04-10] MEDS: LOVENOX SUBQ SCH (20:41)
[2019-04-10] MEDS: SENOKOT PO SCH (20:41)
[2019-04-10] MEDS: METAMUCIL PO SCH (20:41)
[2019-04-11] MEDS: HUMALOG SUBQ SCH ×4 (06:09→20:12)
[2019-04-11] MEDS: NORCO-10 PO PRN ×3 (06:17→20:10)
[2019-04-11 07:46] LABS: BASO# 0.04 X1000 (0.0-0.2); BASO% 0.8 % (0.0-0.8); EOS# 0.53 X1000 (0.0-0.7); EOS% 10.3 % (0.0-10.0); HEMATOCRIT 31.1 % (42.0-52.0); HEMOGLOBIN 9.8 g/dL (14.0-18.0); LYMPH# 1.67 X1000 (1.2-3.4); LYMPH% 32.5 % (20.5-51.1); MCH 31.7 PG (27-31); MCHC 31.5 g/dL (33-37); MCV 100.6 FL (81-99); MONO# 0.42 X1000 (0.11-0.59); MONO% 8.2 % (1.7-9.3); MPV 10.2 FL (7.4-10.4); NEUT# 2.48 X1000 (1.4-6.5); NEUT% 48.2 % (42.2-75.2); PLT 190 X1000 (130-400); RBC 3.09 XMIL (4.7-6.1); RDW 14.4 % (11.5-14.5); WBC 5.14 X1000 (4.8-10.8)
[2019-04-11 08:14] LABS: CALCIUM 9.4 mg/dL (8.8-10.2); CREATININE 2.4 mg/dL (0.7-1.2); POTASSIUM 5.8 mmol/L (3.5-5.1)
[2019-04-11] MEDS: ZANAFLEX PO PRN ×2 (08:15→16:45)
[2019-04-11] MEDS: NS 1,000 ML IV SCH ×2 (08:15→20:09)
[2019-04-11] MEDS: MIRALAX PO SCH (09:29)
[2019-04-11] MEDS: CYMBALTA PO SCH (09:30)
[2019-04-11] MEDS: PROSCAR PO SCH (09:30)
[2019-04-11] MEDS: ZYLOPRIM PO SCH (09:30)
[2019-04-11] MEDS: MACRODANTIN PO SCH ×2 (09:30→20:10)
[2019-04-11] MEDS: SYNTHROID PO SCH (09:30)
[2019-04-11] MEDS: FLOMAX PO SCH (09:30)
[2019-04-11] MEDS: PROTONIX PO SCH (09:30)
[2019-04-11] MEDS: LOVENOX SUBQ SCH (20:10)
[2019-04-11] MEDS: METAMUCIL PO SCH (20:10)
[2019-04-11] MEDS: SENOKOT PO SCH (20:10)
--- NOTE | 2019-04-11 22:25 | PROGRESS NOTE ---
DATE: 04/11/2019 SUBJECTIVE: The patient has low blood pressure. Last night, asymptomatic. He is keeping out of the bed waiting for rehab placement. REVIEW OF SYSTEMS: None reported. PHYSICAL EXAM: Vital signs: Temperature is 97 degrees. Vitals are stable now after fluid balances at 80 mL an hour fluid was started. No complaints and physical exam no change. ASSESSMENT AND PLAN: 1. Extended spectrum beta-lactamases Escherichia coli, pyelonephritis on the Macrobid. 2. Hypotension. Discontinue amlodipine, hydralazine. IV fluids bolus was given. Continue IV fluids. 3. Followup CBC is stable. BUN is slightly high. Creatinine is 2.4. Continue IV fluids while waiting for rehab placement. The patient is medically stable and care of the skin, bladder, and bowels. We will discuss with the social studies teacher. LEVEL OF DOCUMENTATION: 25 minutes. cc: Mike Dudley MD
[2019-04-12] MEDS: ZANAFLEX PO PRN ×3 (04:55→20:49)
[2019-04-12] MEDS: HUMALOG SUBQ SCH ×4 (06:12→20:49)
[2019-04-12] MEDS: NORCO-10 PO PRN ×2 (08:54→18:55)
[2019-04-12] MEDS: ZYLOPRIM PO SCH (08:55)
[2019-04-12] MEDS: CYMBALTA PO SCH (08:55)
[2019-04-12] MEDS: PROTONIX PO SCH (08:55)
[2019-04-12] MEDS: SYNTHROID PO SCH (08:55)
[2019-04-12] MEDS: FLOMAX PO SCH (08:56)
[2019-04-12] MEDS: MIRALAX PO SCH (08:56)
[2019-04-12] MEDS: MACRODANTIN PO SCH ×2 (08:56→20:48)
[2019-04-12] MEDS: PROSCAR PO SCH (08:56)
[2019-04-12] MEDS: NS 1,000 ML IV SCH ×2 (09:00→20:52)
[2019-04-12] MEDS: SENOKOT PO SCH (20:48)
[2019-04-12] MEDS: METAMUCIL PO SCH (20:49)
[2019-04-12] MEDS: LOVENOX SUBQ SCH (20:49)
--- NOTE | 2019-04-12 21:17 | PROGRESS NOTE ---
DATE: 04/12/2019 SUBJECTIVE: The patient is a little better. REVIEW OF SYSTEMS: None reported. Still waiting for the placement. PHYSICAL EXAMINATION: Vital Signs: Temperature is 97.2 degrees, pulse 66, blood pressure 156/80. HEENT: Within normal limits. Neck: Supple. No lymphadenopathy. Chest: Bilateral air entry. Heart: Sounds are regular. ASSESSMENT AND PLAN: 1. Extended-spectrum beta lactamase Escherichia coli, currently stable. 2. History of hypertension, currently on intravenous fluids. Will discontinue in the morning and will discontinue on amlodipine and hydralazine. 3. Will continue to monitor and continue present treatment. Medically stable. Paperwork will be done. 4. I was told the patient got a bed in [facility]. Will discharge in the morning. Will do addendum discharge summary. LEVEL OF DOCUMENTATION: 25 minutes. cc: Mike Dudley MD
[2019-04-13] MEDS: NORCO-10 PO PRN ×2 (01:26→09:06)
[2019-04-13] MEDS: ZANAFLEX PO PRN ×2 (04:08→12:24)
[2019-04-13] MEDS: HUMALOG SUBQ SCH (06:08)
[2019-04-13] MEDS: MACRODANTIN PO SCH (09:06)
[2019-04-13] MEDS: MIRALAX PO SCH (09:06)
[2019-04-13] MEDS: PROSCAR PO SCH (09:06)
[2019-04-13] MEDS: SYNTHROID PO SCH (09:06)
[2019-04-13] MEDS: FLOMAX PO SCH (09:06)
[2019-04-13] MEDS: CYMBALTA PO SCH (09:06)
[2019-04-13] MEDS: ZYLOPRIM PO SCH (09:06)
[2019-04-13] MEDS: PROTONIX PO SCH (09:06)
[2019-04-13] MEDS: DULCOLAX PR PRN (09:11)
[2019-04-13 11:31] VITALS: BP 158/84
== END 2019-04-13 13:45 | DRG 698 ==
LOC: P.ED 14:05 → 1N 14:06 → SUPCPDRO 14:06
PROVIDERS: ADMIT Internal Medicine; ATTEND Internal Medicine

== ENCOUNTER 2019-07-19 16:59 | Inpatient (IN) ==
[2019-07-19] MEDS ORDERED: NS 500 ML IV ONE (18:50)
[2019-07-19] MEDS ORDERED: MERREM 1 GM in NS 50 ML IV ONE (18:50)
[2019-07-19] MEDS ORDERED: ZOFRAN IV ONE (18:50)
[2019-07-19] MEDS ORDERED: MORPHINE IV ONE (18:50)
--- NOTE | 2019-07-19 18:57 | PROVIDER DOCUMENTATION ---
This chart was entered by Ebony Venegas Scribe, acting as scribe for Tanmay Karimi MD. HPI-General Adult - General Source: patient - History of Present Illness -Gen Adult Nature of Presenting Problems: pt is a 74 yr old male presenting via EMS from half-way. pt complains of shortness of breath and abdominal pain, pt reports abnormal labs drawn this AM at facility. pt is followed by Dr Green, pt reports he has discussed dialysis treatment with Dr Green and understands the need but has declined it. pt is non ambulatory since back surgery last yr. Location of Pain/Injury: reports: abdomen Pain Radiation: reports: no radiation Quality of Pain: reports: aching Severity: reports: moderate Onset/Duration: reports: gradual Timing: reports: still present Context/Activities at Onset: reports: rest Modifying Factors: improves with: nothing Associated Symptoms: reports: genitourinary problems, shortness of breath. denies: back/neck pain, chest pain, diarrhea, fever/chills, nausea, vomiting Similar Symptoms Previously?: Yes Recently seen or treated by another doctor?: Yes <Tanmay Karimi - Last Filed: 07/19/19 21:59> <Raheel Edgar - Last Filed: 07/19/19 22:02> - General Chief Complaint: Abdominal Pain Stated Complaint: ABD PAIN Time Seen by Provider: 07/19/19 18:39 Allergies/Adverse Reactions: Patient Allergies Allergy/AdvReac Type Severity Reaction Status Date / Time levofloxacin [From Levaquin] Allergy ITCHING Verified 07/19/19 19:01 surgical tape AdvReac RASH Uncoded 07/19/19 19:01 Home Medications: Home Medication List Medication Instructions Recorded Confirmed Last Taken Type Allopurinol [Zyloprim] 100 mg PO QAM 08/18/17 07/19/19 03/31/18 History Levothyroxine [Synthroid] 175 microgm PO QAM 03/22/18 07/19/19 04/01/18 06:00 History Duloxetine [Cymbalta] 30 mg PO DAILY 02/26/19 07/19/19 Unknown History Furosemide 20 mg PO DAILY 02/26/19 07/19/19 Unknown History Pantoprazole [Protonix] 40 mg PO DAILY 02/26/19 07/19/19 Unknown History Sennosides [Senna] 1 cap PO QHS 02/26/19 07/19/19 Unknown History Finasteride [Proscar] 5 mg PO DAILY 07/19/19 07/19/19 Unknown History Hydrocodone/Acetaminophen [[place] 1 ea PO Q6H PRN 07/19/19 07/19/19 Unknown History 5-325 Tablet] Tamsulosin [Flomax] 0.4 mg PO DAILY 07/19/19 07/19/19 Unknown History Tizanidine HCl [Zanaflex] 4 mg PO Q6H 07/19/19 07/19/19 Unknown History Zolpidem [Ambien] 10 mg PO QHS 07/19/19 07/19/19 Unknown History Review of Systems - Adult - REVIEW OF SYSTEMS - ADULT Constitutional: denies: chills, fever Eyes: reports: no symptoms reported Ears, Nose, Mouth & Throat: reports: no symptoms reported Cardiovascular: denies: chest pain, palpitations, syncope Respiratory: reports: shortness of breath. denies: cough Gastrointestinal: reports: abdominal pain. denies: diarrhea, nausea, vomiting Genitourinary: reports: other (cloudy urine) Musculoskeletal: reports: no symptoms reported Integumentary: reports: skin sores/ulcer (decubitus ucler to buttocks). denies: itching, rash Neurological: denies: dizziness/vertigo, headache/migraines, syncope Psychiatric: reports: no symptoms reported Endocrine: reports: no symptoms reported Hematologic/Lymphatic: reports: no symptoms reported Allergic/Immunologic: reports: no symptoms reported All Other Systems: Reviewed and Negative <Tanmay Karimi - Last Filed: 07/19/19 21:59> Past History - Adult - PAST MEDICAL HISTORY-ADULT Review of Records: reports: Old Records Reviewed, Nursing Assessment Review, Medications Reviewed, Social history reviewed & non-contributory. Major Childhood Illnesses: reports: denies history Cardiovascular: reports: A-Fib, CHF, HTN, hyperlipidemia Respiratory: reports: sleep apnea Gastrointestinal: reports: GERD Obstetrical/Gynecological: reports: denies history Genitourinary: reports: kidney disease Musculoskeletal: reports: arthritis (rhuematoid), chronic pain, other (gout) Neurological: reports: denies history Endocrine/Immune: reports: Diabetes, RA, thyroid disorder (hypo) Other Conditions: reports: denies history - PRIOR SURGERIES/PROCEDURES Surgical/Procedure History: reports: back/neck (back), other (laminectomy) - IMMUNIZATION STATUS Childhood Immunizations: See Nurse Assessment Flu Vaccine: See Nurse Assessment - FAMILY HISTORY Family History: reviewed, not pertinent - SOCIAL HISTORY Smoking: denies Substance Use: denies Living Situation: care facility <Tanmay Karimi - Last Filed: 07/19/19 21:59> Physical Exam-General - PHYSICAL EXAM-ADULT Initial Vital Signs Reviewed: Yes - CONSTITUTIONAL General Appearance: alert, no apparent distress, obese - EYES Eyes: PERRL/EOMI - HEAD, EARS, NOSE, MOUTH & THROAT HENMT: normocephalic/atraumatic, moist mucous membranes - NECK Neck: non-tender, full range of motion, supple, normal inspection - RESPIRATORY Respiratory: chest non-tender, lungs clear, normal breath sounds - CARDIOVASCULAR Cardiovascular: normal peripheral pulses, regular rate, rhythm, no edema - GASTROINTESTINAL (ABDOMEN) Abdominal Exam: normal bowel sounds, distended, rigid, tenderness (mild, general tenderness) - LYMPHATIC Lymphatic: no adenopathy - MUSCULOSKELETAL Extremity: normal range of motion, non-tender, pedal edema (3+ edema left, 4+edema right) - SKIN Integumentary: normal color, normal turgor, warm/dry - NEUROLOGIC Neurologic: grossly normal, no motor/sensory deficits - PSYCHIATRIC Psych/Mental Status: normal mood/affect <Tanmay Karimi - Last Filed: 07/19/19 21:59> Progress - PLAN OF CARE/RESULTS Progress/Plan/Lab Results: Vital Signs - 8 hr 07/19/19 17:07 07/19/19 17:16 Temperature 98.1 F 98.1 F Pulse Rate 89 89 Respiratory Rate 20 20 Blood Pressure 129/90 129/90 O2 Sat by Pulse Oximetry 96 96 Result Diagrams: 07/19/19 19:30 - EKG 1 Time of EKG reading by physician:: 20:58 EKG Read and Signed by:: Raheel Edgar EKG Interpretation (*Must complete 3 of following elements*): Abnormal Rate: 66 Rhythm: sinus rhythm with marked sinus arrhythmia [place]: normal IA Interval: normal ST Wave: normal - CHANGE OF SHIFT REPORT (ED Provider) 1 Report Given and Care Transferred to:: Dr Edgar Time of Transfer: 19:00 Items Pending: Labs, XRAY Results, CT/MRI Results <Tanmay Karimi - Last Filed: 07/19/19 21:59> - PLAN OF CARE/RESULTS Progress/Plan/Lab Results: Vital Signs - 8 hr 07/19/19 17:07 07/19/19 17:16 07/19/19 19:51 Temperature 98.1 F 98.1 F Pulse Rate 89 89 65 Respiratory Rate 20 20 21 Blood Pressure 129/90 129/90 69/51 O2 Sat by Pulse Oximetry 96 96 94 L 07/19/19 19:53 Temperature Pulse Rate 72 Respiratory Rate 18 Blood Pressure 56/32 O2 Sat by Pulse Oximetry 93 L Laboratory Results - last 24 hr 07/19/19 07/19/19 07/19/19 19:30 19:30 19:30 PT INR PTT (Actin FS) Specimen Type Sample Site pH pCO2 pO2 HCO3 Base Excess Oxyhemoglobin ABG O2 Sat (Calculated) ABG O2 Saturation ABG Carboxyhemoglobin ABG Methemoglobin Juancarlos Test A-a O2 Difference Total Hemoglobin Lactate Liter Flow Blood Gas Modality FiO2 % Sodium 134 L Potassium 4.8 Chloride 93 L Carbon Dioxide 21 L Anion Gap 20 BUN 106 H Creatinine 5.5 H Estimated GFR/1.73 m2 10 BUN/Creatinine Ratio 19 Glucose 171 H Calculated Osmolality 306 Calcium 10.2 Magnesium 1.9 Total Bilirubin 0.35 AST 6 L ALT < 5 L Alkaline Phosphatase 87 Creatine Kinase 39 Troponin T Utb-P-Lemvuxxahfy Pept 2050 H Total Protein 7.2 Albumin 4.2 Globulin 3.0 Albumin/Globulin Ratio 1.4 Plasma Lactate 1.9 Acetone Level NEGATIVE 07/19/19 07/19/19 07/19/19 19:30 19:30 20:20 PT 14.4 INR 1.11 PTT (Actin FS) 35.4 Specimen Type ARTERIAL Sample Site R RADIAL pH 7.33 L pCO2 37 pO2 134 H HCO3 20.3 Base Excess -5.9 L Oxyhemoglobin 97.1 ABG O2 Sat (Calculated) 14.1 L ABG O2 Saturation 98.4 ABG Carboxyhemoglobin 0.90 ABG Methemoglobin 0.3 Juancarlos Test YES A-a O2 Difference 19.0 Total Hemoglobin 10.1 L Lactate 1.10 Liter Flow 2.0 Blood Gas Modality CANNULA FiO2 % 28.0 Sodium Potassium Chloride Carbon Dioxide Anion Gap BUN Creatinine Estimated GFR/1.73 m2 BUN/Creatinine Ratio Glucose Calculated Osmolality Calcium Magnesium Total Bilirubin AST ALT Alkaline Phosphatase Creatine Kinase Troponin T 0.077 Emu-N-Ccaxjmauaki Pept Total Protein Albumin Globulin Albumin/Globulin Ratio Plasma Lactate Acetone Level Orders Category Date Time Status Werner Cath Insertion ORDERED Care 07/19/19 18:51 Active Nursing- Obtain EKG once Care 07/19/19 18:46 Active Saline Loc NOW Care 07/19/19 18:46 Active Wound Care DIRECTED Care 07/19/19 18:46 Active CHEST-PORTABLE [RAD] Stat Exams 07/19/19 18:[address] ABDOMEN/PELVIS W/O CONTRAST [CT] Stat Exams 07/19/19 18:49 Completed ABG [RESP] Routine Lab 07/19/19 20:20 Completed ACETONE SERUM [CHEM] Stat Lab 07/19/19 19:30 Completed BLOOD CULTURE [BLDCUL] Stat Lab 07/19/19 19:30 Ordered CK PROFILE [SP CHEM] Stat Lab 07/19/19 19:30 Completed COMPREHENSIVE METABOLIC PANEL [CHEM] Stat Lab 07/19/19 19:30 Completed LACTATE, PLASMA [CHEM] Stat Lab 07/19/19 19:30 Completed MAGNESIUM [CHEM] Stat Lab 07/19/19 19:30 Completed PRO B-NATRIURETIC PEPTIDE Stat Lab 07/19/19 19:30 Completed PROTIME WITH INR [COAG] Stat Lab 07/19/19 19:30 Completed PTT [COAG] Stat Lab 07/19/19 19:30 Completed TROPONIN T Stat Lab 07/19/19 19:30 Completed URINALYSIS W/POSS RFLX CULT [URINALYSIS] Stat Lab 07/19/19 18:48 Uncollected WOUND CULTURE INC GRAM STAIN [RM] Stat Lab 07/19/19 18:49 Uncollected 0.9% Sodium Chloride Inj [Ns] 500 ml Med 07/19/19 18:50 Discontinued IV 999 mls/hr Meropenem [Merrem] 1 gm Med 07/19/19 18:50 Discontinued 0.9% Sodium Chloride Inj [Ns] 50 ml IV NOW Morphine Med 07/19/19 18:50 Discontinued 4 mg IV NOW ONE Ondansetron [Zofran] Med 07/19/19 18:50 Discontinued 4 mg IV NOW ONE EKG [EKG] Stat Ther 07/19/19 18:47 Ordered Result Diagrams: 07/19/19 19:30 <Raheel Edgar Last Filed: 07/19/19 22:02> Departure <Tanmay Karimi - Last Filed: 07/19/19 21:59> - Departure Date of Disposition Decision: 07/19/19 Time of Disposition Decision: 22:01 Certified Medical Emergency: Emergent - Critical Care Note This patient required my direct & personal management of CC.: No <Raheel Edgar - Last Filed: 07/19/19 22:02> - Departure DIAGNOSIS: Acute on chronic renal failure Qualifiers: Acute renal failure type: unspecified Chronic kidney disease stage: unspecified stage Qualified Code(s): N17.9 - Acute kidney failure, unspecified; N18.9 - Chronic kidney disease, unspecified Disposition: ADMITTED INPATIENT 09 Condition: Fair Referrals and Follow-Ups: Darrion Stroud III, MD [Primary Care Provider] - Attestation - Physician/ ZARI Attestation Patient care was provided by Advanced Practice Provider:: No The physician spent face to face time with patient:: Yes Advanced Practice Provider documentation review:: Supervising physician onsite and consulted in the evaluation and care of this patient. The physician did have a face to face encounter with the patient. <Tanmay Karimi - Last Filed: 07/19/19 21:59> This chart was documented by the indicated scribe, (Ebony Vengeas Scribe) and accurately reflects the services I performed and decisions made by me, Tanmay Karimi MD, as attested by the provider's signature.
--- NOTE | 2019-07-19 20:03 | Diag Imaging Result Doc PS360 ---
EXAM: CHEST-PORTABLE INDICATION: sob TECHNIQUE: One view COMPARISON: 03/20/2019 FINDINGS: The patient is rotated toward the right. The lungs are grossly clear. There is no discrete pleural fluid collection or pneumothorax. The cardiomediastinal silhouette and central vasculature are grossly unremarkable. IMPRESSION: No evidence of acute pathology by plain radiograph. Electronically signed by Darrion Allen 07/19/2019 8:01 PM
[2019-07-19 20:08] LABS: INR 1.11; PROTIME 14.4 Seconds (11.0-16.0)
[2019-07-19 20:09] LABS: PTT 35.4 Seconds (22.3-41.8)
[2019-07-19 20:30] LABS: AGAP 20; ALB/GLOB RATIO 1.4; ALBUMIN 4.2 g/dL (3.5-5.0); ALKALINE PHOSPHATASE 87 U/L (32-122); BUN 106 mg/dL (8-22); CALCIUM 10.2 mg/dL (8.8-10.2); CHLORIDE 93 mmol/L (98-107); CK PROFILE 39 U/L (24-204); COSMO 306; CREATININE 5.5 mg/dL (0.7-1.2); ESTIMATED GFR 10; GLUCOSE 171 mg/dL (70-104); GOT 6 U/L (10-34); GPT < 5 U/L (10-44); MAGNESIUM 1.9 mg/dL (1.5-2.7); POTASSIUM 4.8 mmol/L (3.5-5.1); SODIUM 134 mmol/L (136-145); TCO2 21 mmol/L (25-35); TOTAL BILIRUBIN 0.35 mg/dL (0.20-1.00); TOTAL PROTEIN 7.2 g/dL (6.3-8.3)
[2019-07-19 20:31] LABS: ACETONE SERUM NEGATIVE (NEGATIVE)
[2019-07-19 20:39] LABS: ALLEN TEST YES; BE -5.9 mmoll (-3.0-3.0); BLOOD TYPE ARTERIAL; HCO3-(ACT) 20.3 mmoll (20.0-26.0); METHB 0.3 % (0.0-1.5); MODALITY CANNULA; O2(CT) 14.1 mL/dL (15.0-23.0); O2HB 97.1 % (95.0-99.0); PCO2(98.6) 37 mmHg (35-45); PO2(98.6) 134 mmHg (60-100); SAMPLE BLOOD; SAO2 98.4 % (95.0-100.0); THB 10.1 g/dL (11.5-17.4); pH(98.6) 7.33 (7.35-7.45)
--- NOTE | 2019-07-19 21:39 | Diag Imaging Result Doc PS360 ---
EXAM: CT ABDOMEN/PELVIS W/O CONTRAST INDICATION: abd pain, acute kidney injury TECHNIQUE: This exam was performed using automated exposure control, adjustment of mA or kV according to patient size, and/or use of iterative reconstruction technique. COMPARISON: 03/20/2019 FINDINGS: There is mild bronchiectasis at the lung bases and there is stable mild bronchial mucosal thickening at the lung bases suggesting chronic bronchitis. There is mild fibrosis at the right lung base. There is stable chronic atelectasis at the right lung base and, to a lesser degree, the left lung base. The gallbladder, liver, spleen, pancreas, and adrenal glands are grossly unremarkable. Both kidneys appear atrophic and have a nodular contour indicating renal cortical scarring or persistent lobulations. There are several nonobstructing intrarenal stones on the left. There is at least one on the right. There are no ureteral stones and there is no hydronephrosis. There is a Werner catheter in the urinary bladder and the bladder is completely nondistended. There is no evidence of appendicitis. No bowel wall thickening or bowel obstruction is identified. The remainder of the GI tract is grossly unremarkable. No focal inflammatory changes, free abdominal gas, or free fluid is appreciated. There is multilevel spondylosis and there are extensive surgical changes associated with the lumbar spine. There is no evidence of acute osseous abnormality. IMPRESSION: 1.Nonobstructive nephrolithiasis and bilateral renal atrophy. 2.Other incidental/nonacute findings detailed above. No definite acute pathology by CT. Electronically signed by Darrion Allen 07/19/2019 9:37 PM
[2019-07-19 22:15] LABS: URINE SOURCE CATH
[2019-07-19 22:31] LABS: BILIRUBIN URINE NEGATIVE (NEGATIVE); BLOOD URINE TRACE (NEGATIVE); COLOR ORANGE; GLUCOSE URINE NEGATIVE (NEGATIVE); KETONE URINE NEGATIVE (NEGATIVE); LEUKOCYTES URINE LARGE (NEGATIVE); NITRITE URINE POSITIVE (NEGATIVE); PH URINE 5.5; PROTEIN URINE 30 mg/dL (NEGATIVE); SP GRAVITY URINE 1.013; TURBIDITY URINE TURBID (CLEAR); UROBILINOGEN URINE NORMAL (NORMAL)
[2019-07-19 22:33] LABS: UR EPITHELIAL CELLS <10 /HPF (<10); URINE BACTERIA 4+ /HPF; URINE RBC <10 /HPF (<10); URINE WBC TNTC /HPF (<10)
--- NOTE | 2019-07-19 22:35 | EKG Report ---
Test Performed on : 07/19/2019 8:56:03 PM Test Reason : Renal failure, abdominal pain Blood Pressure : / mmHG Vent. Rate : 066 BPM Atrial Rate : 066 BPM P-R Int : 222 ms QRS Dur : 098 ms QT Int : 442 ms P-R-T Axes : 018 -08 048 degrees QTc Int : 463 ms Sinus rhythm. with marked sinus arrhythmia. with 1st degree AV block. Otherwise normal ECG When compared with ECG of 23-MAR-2019 20:54, Vent. rate has increased BY 23 BPM Unconfirmed Result
[2019-07-19 22:56] LABS: URINE CASTS NONE SEEN; URINE CRYSTALS NONE SEEN; URINE SMALL ROUND CELLS NONE SEEN; URINE YEAST NONE SEEN
[2019-07-19] MEDS ORDERED: CALMOSEPTINE OINTMENT TOP PRN (23:57)
[2019-07-20] MEDS ORDERED: TYLENOL PO PRN (00:22)
[2019-07-20] MEDS ORDERED: ZOFRAN IV PRN (00:22)
[2019-07-20] MEDS: AMBIEN PO SCH ×2 (00:45→20:48)
[2019-07-20] MEDS: ROCEPHIN 1 GM in NS 50 ML IV SCH (02:30)
[2019-07-20] MEDS: NS 1,000 ML IV SCH ×2 (02:30→15:02)
[2019-07-20] MEDS: ZANAFLEX PO SCH ×4 (02:33→20:48)
[2019-07-20] MEDS: NORCO-5 PO PRN ×3 (02:33→20:48)
--- NOTE | 2019-07-20 02:37 | HISTORY AND PHYSICAL ---
PRIMARY CARE PHYSICIAN: Dr. Dudley. CHIEF COMPLAINT: Abdominal pain and nausea. HISTORY OF PRESENTING ILLNESS: A 74-year-old male with a history of diabetes mellitus type 2, chronic kidney disease stage 4, hypertension, GERD, who is basically bed bound resides at [facility]. Was brought to the emergency department due to patient having abdominal pain mostly in his suprapubic region. He was also having nausea and was unable to keep anything down. The patient was evaluated in the emergency department. He had laboratories done which did show that he was in acute renal failure. Due to his presenting symptoms, it was thought that he would need admission for further management. At the time of my examination, patient denied any headache, fever, chills, chest pain, shortness of breath, but complained of abdominal pain and nausea. PAST MEDICAL HISTORY: Includes diabetes mellitus type 2, chronic kidney disease, hypertension, GERD, hypothyroidism. PAST SURGICAL HISTORY: Back surgery, cervical fusion. ALLERGIES: No known drug allergies. CURRENT MEDICATIONS: Include allopurinol 300 one p.o. q.a.m., finasteride 5 mg p.o. daily, Lasix 20 mg p.o. daily, [place] 5/325 one p.o. q.6 hours, levothyroxine 175 mcg p.o. q.a.m., pantoprazole 40 mg p.o. daily, tamsulosin 0.4 mg p.o. daily, Zanaflex 4 mg p.o. q.6 hours, Ambien 10 mg p.o. at bedtime. SOCIAL HISTORY: No history of smoking, alcohol or illicit drug use. FAMILY HISTORY: No history of coronary artery disease. REVIEW OF SYSTEMS: Fourteen point review of systems as listed in HPI. Other systems negative. PHYSICAL EXAMINATION: GENERAL: Cooperative, friendly male. He is resting more comfortably now. VITAL SIGNS: Temperature 98.1 degrees, pulse 89, respirations 20, blood pressure 129/90. HEENT: Atraumatic, normocephalic. PERRLA. NECK: No masses. CHEST: Rhonchi. CARDIOVASCULAR: Regular rate and rhythm. ABDOMEN: Soft. Positive bowel sounds. EXTREMITIES: Trace edema. NEUROLOGIC: He is awake, alert, oriented x3. GENITOURINARY: No bladder distention. SKIN: Warm. LABORATORIES AND STUDIES: Sodium 134, potassium 4.8, chloride 93, CO2 is 21, BUN is 106, creatinine is 5.5, glucose 171. UA shows large leukocytes. ASSESSMENT: This is a 74-year-old male with a history of hypertension, chronic kidney disease, gastroesophageal reflux disease and hypothyroidism, who presented to emergency department with a 1- day history of having worsening abdominal pain and nausea. He was evaluated in the emergency department and due to his presenting symptoms he will require admission for further management. 1. Abdominal pain. 2. Acute on chronic kidney disease stage 4. 3. Diabetes mellitus type 2. 4. Gastroesophageal reflux disease. 5. Hypothyroidism. PLAN: 1. We will admit patient to medical floor with telemetry. 2. We will continue with supportive care. 3. We will continue with gentle hydration. 4. We will monitor renal function. 5. We will consult Nephrology. 6. Monitor blood glucose and put patient on sliding scale insulin regimen. 7. We will restart his home medications. 8. Put patient on DVT prophylaxis with SCD. 9. We will continue to follow, reassess and make further recommendation based on patient's clinical course. cc: MD Mike Talavera MD MTDD
[2019-07-20] MEDS ORDERED: NS 500 ML IV ONE (04:57)
[2019-07-20] MEDS ORDERED: NS 500 ML ONE (05:11)
[2019-07-20] MEDS: ASPIRIN PO SCH (08:52)
[2019-07-20] MEDS: CYMBALTA PO SCH (08:52)
[2019-07-20] MEDS: FLOMAX PO SCH (08:53)
[2019-07-20] MEDS: ZYLOPRIM PO SCH (08:53)
[2019-07-20] MEDS: PROTONIX PO SCH (08:54)
[2019-07-20] MEDS: SYNTHROID PO SCH (08:54)
[2019-07-20] MEDS: PROSCAR PO SCH (08:55)
[2019-07-20] MEDS ORDERED: LASIX PO SCH (09:00)
--- NOTE | 2019-07-20 15:21 | PROVIDER PROGRESS NOTE ---
Progress Note Chief complaint: My stomach is distended. HPI: Mr. Odell has a past medical history of chronic kidney disease stage four, hypertension, and diabetes mellitus type two. He is known to our service. He has a 4-5 day history of decreased appetite with a 3 day history of abdominal fullness. He feels he is distended. He has chronic constipation and requires a suppository every 2 days. He has had no change in his usual bowel habits. Low intake but no vomiting. He Denies a change in his urine production or frequency. Voices having an open ulcer on his buttocks. His baseline Creatinine is 2.3-3.1. He has received 3L normal saline in the ED. Today his Creatinine is 5.5. Past medical history: chronic kidney disease stage four, hypertension, Gerd, hypothyroidism, diabetes mellitus type two. Past surgical history: back surgery, cervical fusion. Social history: Lives at [facility], denies alcohol, tobacco, and illicit drug use. Family history: father had cancer, mother positive for heart disease and diabetes. Allergies: no known Home medications: allopurinol, Cymbalta, proscar, furosemide, [place] five, levothyroxine, protonix, sennosides, Tamsulosin, Zanaflex, Ambien. Review of systems: neurological: denies altered mental status, confusion, or dizziness. Eyes: denies blurriness, dryness, or change in visual acuity. ENT: denies tinnitus or change in hearing. Integumentary: denies any erythema, rash, or itching. Respiratory: Admits to shortness of breath, denies orthopnea or cough. Cardiovascular: denies palpitations or chest pain. G.I.: Denies nausea, vomiting. Admits to abdominal pain and feelings of fullness, : denies change in flow, color, or amount, odor. Endocrine: Denies excessive thirst and hunger. Musculoskeletal: Denies increased bilateral lower weakness. Denies extremity pain. Labs: sodium 134, potassium 4.8, chloride 93, carbon dioxide 21, BUN 106, creatinine 5.5, proBNP 2050. Urine: protein 30, blood trace, nitrate positive, leukocytes large, WBC TNTC, bacteria 4+ Imaging: chest X-ray normal. abdomen and pelvis CT without contrast findings several nonobstructing intrarenal stones on the left with at least one on the right. No ureteral stones and no hydronephrosis. Both kidneys appear atrophic and have a nodular contour indicating renal cortical scarring or persistent lobulations. Physical exam: temp 97.8, pulse 79, respirations 13, blood pressure 149/84, O2 sat 100% on 2 L nasal cannula. General: elderly white male lying in bed in no acute distress. HEENT: normocephalic, a dramatic. Pupils equal and reactive. Trachea midline. Missing teeth. Skin: pale, warm and dry. Neck: supple, JVD not observed due to body habitus and position. Cardiovascular: distant heart tones S1, S2 regular rate and rhythm. Respiratory: lungs clear with equal Harshal scourging anteriorly Abdomen: soft, obese, nondistended, tender in all four quadrants. Bowel sounds active. : Not observed, Delgado in place. Extremities: one plus pitting Edema to bilateral lower extremities Neurological: alert and oriented to person and place. Assessment and plan: Acute on chronic kidney disease. Bilateral atrophic kidneys noted. Prerenal from dehydration. Could be ischemic tubular necrosis from hypotension. Urine studies ordered. Replace delgado. Blood pressure. Improved with fluids. Stable for now. Fluid volume. Euvolemic. Anemia. Will order CBC. Electrolytes and acid base balance. Stable. nutrition. Will order renal diet. medication review. No change
[2019-07-20] MEDS: SENOKOT PO SCH (20:49)
[2019-07-21] MEDS: ROCEPHIN 1 GM in NS 50 ML IV SCH (00:30)
[2019-07-21] MEDS: ZANAFLEX PO SCH ×4 (04:09→22:53)
[2019-07-21] MEDS: NS 1,000 ML IV SCH ×2 (04:10→14:06)
[2019-07-21] MEDS: SYNTHROID PO SCH (06:37)
[2019-07-21 07:03] LABS: ALBUMIN 3.7 g/dL (3.5-5.0); CALCIUM 9.9 mg/dL (8.8-10.2); CREATININE 4.6 mg/dL (0.7-1.2); PHOSPHORUS 5.5 mg/dL (2.7-4.5); POTASSIUM 4.5 mmol/L (3.5-5.1)
[2019-07-21] MEDS: ZYLOPRIM PO SCH (08:25)
[2019-07-21] MEDS: CYMBALTA PO SCH (08:25)
[2019-07-21] MEDS: ASPIRIN PO SCH (08:25)
[2019-07-21] MEDS: PROSCAR PO SCH (08:25)
[2019-07-21] MEDS: PROTONIX PO SCH (08:25)
[2019-07-21] MEDS: NORCO-5 PO PRN ×3 (08:25→22:54)
[2019-07-21] MEDS: FLOMAX PO SCH (08:25)
[2019-07-21 08:40] LABS: HEMOGLOBIN 10.3 g/dL (14.0-18.0); MCH 31.2 PG (27-31); MCHC 31.2 g/dL (33-37); MPV 10.6 FL (7.4-10.4); RBC 3.3 XMIL (4.7-6.1); RDW 13.5 % (11.5-14.5); WBC 8.87 X1000 (4.8-10.8)
--- NOTE | 2019-07-21 22:25 | NEPHROLOGY PROGRESS NOTE ---
DATE: 07/21/2019 SUBJECTIVE: He is awake, alert. He has not eaten his breakfast. No nausea, vomiting, or diarrhea, however. OBJECTIVE: Blood pressure 129/65, heart rate 57, respirations 16, afebrile.General: No acute distress. Skin: Warm and dry. Neck: Veins are not appreciated. Heart: Regular. Lungs: Equal. No crackles. Abdomen: Soft, obese, nontender. Bowel sounds present. Extremities: No significant edema. No clubbing or cyanosis. IMPRESSION/PLAN: Acute kidney injury overlying chronic kidney disease. Likely prerenal from intravascular volume depletion. Steady improvement. BUN 88, creatinine 4.6 today. Electrolytes/acid base/anemia/blood pressure all in target. Continue IV fluids. cc: MD Mike Briceno MD
[2019-07-21] MEDS: SENOKOT PO SCH (22:53)
[2019-07-21] MEDS: AMBIEN PO SCH (23:20)
--- NOTE | 2019-07-22 00:22 | PROGRESS NOTE ---
DATE: 07/21/2019 SUBJECTIVE: The patient was seen in the ICU, a 74-year-old white male admitted yesterday with abdominal pain, acute kidney injury. I appreciated Dr. Villarreal's consult. He was given IV fluids. He has a chronic kidney disease on chronic Werner catheter. He has known history of kidney stones. Werner has not been changed more than a month. REVIEW OF SYSTEMS: None reported. He is basically bedridden. PAST MEDICAL HISTORY: Reviewed. PAST SURGICAL HISTORY: Reviewed. MEDICINES: Reviewed. ALLERGIES: Surgical tape and Levaquin. PHYSICAL EXAMINATION: Temperature is 97.5 degrees, pulse 74, blood pressure is 135/92. HEENT: Within normal limits. Neck: Supple. Chest: Clear. Heart sounds are regular. Belly is soft. Tenderness improved, 1+ pedal edema in both legs. No obvious neurological deficits. INVESTIGATIONS: White cell count 8.8, hematocrit 33, platelets 164,000. Sodium 137, potassium 4.5, chloride 101, BUN 88, creatinine 4.6, glucose 137, phosphorus 5.5. Cardiac enzymes were negative. Urine is positive for infection. Chest x-ray: No evidence of acute pathology. CT scan of the abdomen and pelvis, nonobstructive kidney stones, bilateral renal atrophy. ASSESSMENT AND PLAN: 1. Acute kidney injury on chronic renal failure. Gentle hydration. 2. Change the Werner catheter. 3. Continue IV fluids and follow up on renal function tests. 4. Gout on Zyloprim. Bilateral kidney stones stable. Benign prostatic hypertrophy (BPH) on Proscar and finasteride. The patient is refusing for surgery, seen before by Dr. Romano. 5. Hypothyroidism on Synthroid, chronic pain and depression on Cymbalta. Possible urinary tract infection (UTI) and urine cultures are so far pending. Blood cultures are negative. Continue IV ceftriaxone. Will follow up over the weekend and deep venous thrombosis prophylaxis on antithrombotic stockings. 6. Gastrointestinal prophylaxis. Protonix and the patient will be transferred to the Step-Down from ICU. LEVEL OF DOCUMENTATION: 35 minutes. cc: Mike Dudley MD
[2019-07-22] MEDS: ROCEPHIN 1 GM in NS 50 ML IV SCH (01:43)
[2019-07-22] MEDS: NORCO-5 PO PRN ×3 (05:42→21:55)
[2019-07-22] MEDS: ZANAFLEX PO SCH ×4 (05:42→21:56)
[2019-07-22] MEDS: SYNTHROID PO SCH (06:19)
[2019-07-22 07:35] LABS: HEMATOCRIT 30.7 % (42.0-52.0); HEMOGLOBIN 9.8 g/dL (14.0-18.0); MCHC 31.9 g/dL (33-37); MCV 100.3 FL (81-99); MPV 10.3 FL (7.4-10.4); RBC 3.06 XMIL (4.7-6.1); RDW 13.5 % (11.5-14.5); WBC 8.01 X1000 (4.8-10.8)
[2019-07-22 07:51] LABS: ALBUMIN 3.1 g/dL (3.5-5.0); CALCIUM 9.4 mg/dL (8.8-10.2); CREATININE 3.8 mg/dL (0.7-1.2); PHOSPHORUS 5.1 mg/dL (2.7-4.5); POTASSIUM 4.6 mmol/L (3.5-5.1)
[2019-07-22] MEDS: NS 1,000 ML IV SCH (08:32)
[2019-07-22] MEDS ORDERED: LR 1,000 ML IV SCH (09:45)
[2019-07-22] MEDS: FLOMAX PO SCH (10:53)
[2019-07-22] MEDS: PROTONIX PO SCH (10:54)
[2019-07-22] MEDS: CYMBALTA PO SCH (10:54)
[2019-07-22] MEDS: ASPIRIN PO SCH (10:55)
[2019-07-22] MEDS: ZYLOPRIM PO SCH (10:56)
[2019-07-22] MEDS: PROSCAR PO SCH (10:57)
[2019-07-22] MEDS: MILK OF MAGNESIA PO SCH (10:57)
[2019-07-22] MEDS: LR 1,000 ML IV SCH (12:59)
[2019-07-22] MEDS: NEOSPORIN OINTMENT TUBE TOP SCH (15:39)
--- NOTE | 2019-07-22 17:27 | PROGRESS NOTE ---
DATE: 07/22/2019 SUBJECTIVE: Mr. Odell is a 74-year-old, white gentleman, resident of [facility] and [facility] admitted because of abdominal pain and nausea. The patient is very vague and poor historian. He described pain as a tightness in the abdomen. Oral intake is poor. Initial blood work did reveal acute kidney injury. No high-grade fever or chills. The patient did have some nausea. Oral intake was poor. No diarrhea. Admission history and physical noted. PAST MEDICAL HISTORY: NIDDM, chronic kidney disease, hypertension, hypothyroidism, gastroesophageal reflux disease, history of kidney stone. The patient had back surgery and cervical fusion done. CURRENT MEDICATIONS: Noted. OBJECTIVE: Vital Signs: Blood pressure 100/58, pulse 95, respirations 18, temperature 98.3 degrees, O2 saturation was 91%. Skin: Senile turgor. Neck: Supple. No JVD. Lungs: Bibasilar crepitations. Heart S1 and S2 heard. Abdomen: Soft and globular. Bowel sounds present. Extremities: No cyanosis, clubbing. No acute DVT. Tenderness lumbosacral spine. Central nervous system: Alert, awake, uncooperative for detailed examination. ASSESSMENT AND PLAN: The patient's medical problems include: 1. Acute kidney injury. BUN yesterday was 88 and creatinine 4.6. Electrolytes ordered for today. Results are pending. Wreath Maker following patient with us. Abdominal pain. The patient does have nephrolithiasis, possibility of radicular pain from his back cannot be ruled out. 2. His other problems include hypothyroidism on Synthroid, history of gout, [id number] diabetes mellitus. Patient's CT scan results reviewed. I am going to follow electrolytes. I appreciate Dr. Villarreal's help managing this patient. Continue rest of the treatment, comfort care. cc: MD Mike Rosales MD
[2019-07-22] MEDS: SENOKOT PO SCH (21:24)
[2019-07-22] MEDS: AMBIEN PO SCH (21:55)
--- NOTE | 2019-07-23 00:40 | NEPHROLOGY PROGRESS NOTE ---
DATE: 07/22/2019 SUBJECTIVE: He ate his clear liquid tray this morning. Still low appetite. No diarrhea, in fact, no bowel movement. No vomiting. OBJECTIVE: Vital Signs: Blood pressure 155/95, heart rate 95, respiration 18, afebrile. Intake 2.6 L, output 1.5 L. General: No acute distress. Skin: Warm and dry. Somewhat pale. Neck: Neck veins are not appreciated. Heart: Regular. Lungs: Equal. No crackles. Abdomen: Obese, soft, nontender. Bowel sounds present. Extremities: Minimal edema. No clubbing or cyanosis. IMPRESSION: Acute kidney injury overlying chronic kidney disease stage 5. Baseline creatinine 2.5. Improving daily with IV fluids. Appears euvolemic on exam, though somewhat difficult to assess. Continue current care. cc: MD Mike Briceno MD
[2019-07-23] MEDS: ROCEPHIN 1 GM in NS 50 ML IV SCH (01:24)
[2019-07-23] MEDS: ZANAFLEX PO SCH ×4 (04:19→22:07)
[2019-07-23] MEDS: NORCO-5 PO PRN ×3 (04:19→22:07)
[2019-07-23] MEDS: SYNTHROID PO SCH (06:08)
[2019-07-23 06:09] LABS: HEMOGLOBIN 9.2 g/dL (14.0-18.0); MCH 32.2 PG (27-31); MCHC 31.7 g/dL (33-37); MCV 101.4 FL (81-99); MPV 10.5 FL (7.4-10.4); RBC 2.86 XMIL (4.7-6.1); RDW 13.7 % (11.5-14.5); WBC 6.03 X1000 (4.8-10.8)
[2019-07-23 06:31] LABS: ALBUMIN 3.3 g/dL (3.5-5.0); CALCIUM 9.4 mg/dL (8.8-10.2); CREATININE 3.4 mg/dL (0.7-1.2); PHOSPHORUS 4.2 mg/dL (2.7-4.5); POTASSIUM 4.2 mmol/L (3.5-5.1)
[2019-07-23 07:48] LABS: HEPATITIS PROFILE ACUTE SEE COMMENTS
[2019-07-23] MEDS: PROSCAR PO SCH (08:17)
[2019-07-23] MEDS: ZYLOPRIM PO SCH (08:17)
[2019-07-23] MEDS: FLOMAX PO SCH (08:17)
[2019-07-23] MEDS: PROTONIX PO SCH (08:17)
[2019-07-23] MEDS: CYMBALTA PO SCH (08:17)
[2019-07-23] MEDS: ASPIRIN PO SCH (08:18)
[2019-07-23] MEDS: MILK OF MAGNESIA PO SCH (08:18)
--- NOTE | 2019-07-23 09:41 | PROGRESS NOTE ---
DATE: 07/23/2019 SUBJECTIVE: Mr. Odell is doing some better. He denied any fever or chills. Abdominal pain is less. The patient claims he did have multiple bowel movements. The patient wants to eat solid food. No typical chest pain. Back pain seems to be getting better. No nausea or vomiting. No high-grade fever or chills. OBJECTIVE: Vital signs: Blood pressure 160/82, pulse 61, respiration rate 14, temperature 97.9 degrees. Skin: Senile turgor. Neck: Supple. No JVD. Lungs: Bibasilar crepitations. Heart: S1 and S2 heard. Abdomen: Soft, globular. Bowel sounds present. Tenderness is less. 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 Answering questions fair. LABORATORY DATA: Today, hemoglobin 9.2, hematocrit 29, WBC count 6.03, platelet count 155,000. BUN 68, creatinine 3.4, did show some improvement. Total protein 3.3. His hepatitis panel was nonreactive. MEDICAL PROBLEMS: 1. Acute on chronic renal failure. Renal function seems to be improving. 2. Chronic low back pain and abdominal pain. 3. Nephrolithiasis. 4. Diabetes mellitus. 5. Hypothyroidism. 6. Patient does feel hungry. I am going to advance his diet some. Continue rest of the treatment and close observation. cc: MD Mike Rosales MD
[2019-07-23] MEDS: LR 1,000 ML IV SCH (09:44)
[2019-07-23] MEDS: NEOSPORIN OINTMENT TUBE TOP SCH (10:02)
[2019-07-23] MEDS: SENOKOT PO SCH (21:43)
[2019-07-23] MEDS: AMBIEN PO SCH (22:07)
[2019-07-24] MEDS: ROCEPHIN 1 GM in NS 50 ML IV SCH (01:46)
[2019-07-24] MEDS: LR 1,000 ML IV SCH ×2 (01:47→15:28)
[2019-07-24] MEDS: NORCO-5 PO PRN ×3 (05:29→21:49)
[2019-07-24] MEDS: ZANAFLEX PO SCH ×4 (05:29→21:49)
[2019-07-24] MEDS: SYNTHROID PO SCH ×2 (05:30→06:00)
[2019-07-24 06:43] LABS: HEMATOCRIT 28.5 % (42.0-52.0); HEMOGLOBIN 9.2 g/dL (14.0-18.0); MCH 32.5 PG (27-31); MCHC 32.3 g/dL (33-37); MCV 100.7 FL (81-99); MPV 10.3 FL (7.4-10.4); RBC 2.83 XMIL (4.7-6.1); RDW 13.6 % (11.5-14.5); WBC 9.3 X1000 (4.8-10.8)
[2019-07-24 07:08] LABS: ALBUMIN 3.3 g/dL (3.5-5.0); CALCIUM 9.6 mg/dL (8.8-10.2); PHOSPHORUS 3.6 mg/dL (2.7-4.5); POTASSIUM 4.3 mmol/L (3.5-5.1)
[2019-07-24] MEDS: ASPIRIN PO SCH (09:26)
[2019-07-24] MEDS: PROTONIX PO SCH (09:26)
[2019-07-24] MEDS: ZYLOPRIM PO SCH (09:26)
[2019-07-24] MEDS: PROSCAR PO SCH (09:26)
[2019-07-24] MEDS: MILK OF MAGNESIA PO SCH ×2 (09:27→09:30)
[2019-07-24] MEDS: FLOMAX PO SCH (09:27)
[2019-07-24] MEDS: NEOSPORIN OINTMENT TUBE TOP SCH (09:27)
[2019-07-24] MEDS: CYMBALTA PO SCH (09:27)
--- NOTE | 2019-07-24 16:32 | PROVIDER PROGRESS NOTE ---
Progress Note Subjective: Pt voices feeling like his kidneys are backing up, delgado tubing noted to be kinked. Unkinking the tube put put 350ml clear urine. Objective: temperature 97.8, pulse 62, respirations 17, blood pressure 156/83, 02 sat 94% on room air. General: elderly white male lying in bed in no acute distress. HEENT: normocephalic, a dramatic. Pupils equal and reactive. Trachea midline. Missing teeth. Skin: pale, warm and dry. Neck: supple, 6 cm JVD Cardiovascular: distant heart tones S1, S2 regular rate and rhythm. Respiratory: lungs clear with equal air excursion anteriorly Abdomen: soft, obese, nondistended, nontender. Bowel sounds active. : Not observed, Delgado in place with clear urine Extremities: 2+ pitting Edema to bilateral lower extremities Neurological: alert and oriented to person and place. Labs: WBC 9.3, hemoglobin 9.2, hematocrit 28.5, sodium 137, potassium 4.3, chloride 104, carbon dioxide 24, BUN 53, creatinine 3.0. Impression: Acute kidney injury on chronic kidney disease stage 5. Prerenal from dehydration. Could be ischemic tubular necrosis from hypotension. Creatinine continues to improve with Lactated Ringers. No changes. Blood pressure. In target. Fluid volume. Euvolemic. Anemia. Low but stable. Electrolytes and acid base balance. Stable. nutrition. Tolerating clear liquids well. medication review.
--- NOTE | 2019-07-24 19:31 | PROGRESS NOTE ---
DATE: 07/24/2019 SUBJECTIVE: The patient complains of abdominal pain across the upper part of the abdomen and he has ESBL Escherichia coli. Change the antibiotics to ceftriaxone. Chronic kidney disease is getting better. Werner was placed. The patient is on full liquid diet. PHYSICAL EXAMINATION: Vital Signs: Temperature is 98 degrees, pulse 60, blood pressure is stable. HEENT: Pinguecula noted in both eyes. Neck: Supple. Chest: Clear. Heart: Sounds are regular. Abdomen: Belly is soft. No signs of peritonitis. INVESTIGATIONS: CBC: White cell count 9.3, hematocrit 28.5, MCV is high, platelets 158,000. Sodium 137, potassium 4.3, BUN 53, creatinine 3.0. Hepatitis panel was negative. CT scan of the abdomen and pelvis is no acute pathology noted. Urine cultures, ESBL, Escherichia coli positive. ASSESSMENT AND PLAN: 1. Escherichia coli, extended-spectrum beta-lactamases positive. IV ceftriaxone. 2. Kidney stones stable. Chronic kidney disease getting better. IV fluids. 3. Upper abdominal pain with eating. Rule out gallstone disease. We will get an ultrasound of the abdomen if it is negative. Check the HIDA scan. 4. Continue present treatment. LEVEL OF DOCUMENTATION: 25 minutes. cc: Mike Dudley MD [email or web address]
[2019-07-24] MEDS: SENOKOT PO SCH (20:19)
[2019-07-24] MEDS: AMBIEN PO SCH (20:19)
[2019-07-25] MEDS: ROCEPHIN 1 GM in NS 50 ML IV SCH ×2 (01:20→23:40)
[2019-07-25] MEDS: LR 1,000 ML IV SCH ×2 (03:41→08:28)
[2019-07-25] MEDS: ZANAFLEX PO SCH ×4 (03:41→22:35)
[2019-07-25 05:43] LABS: HEMOGLOBIN 9.4 g/dL (14.0-18.0); MCH 32.4 PG (27-31); MCHC 32.4 g/dL (33-37); MPV 10.2 FL (7.4-10.4); RBC 2.9 XMIL (4.7-6.1); RDW 13.5 % (11.5-14.5); WBC 6.63 X1000 (4.8-10.8)
[2019-07-25 05:59] LABS: ALBUMIN 3.2 g/dL (3.5-5.0); CALCIUM 9.2 mg/dL (8.8-10.2); CREATININE 2.5 mg/dL (0.7-1.2); PHOSPHORUS 2.9 mg/dL (2.7-4.5); POTASSIUM 4.3 mmol/L (3.5-5.1)
[2019-07-25] MEDS: SYNTHROID PO SCH (06:43)
[2019-07-25] MEDS: NORCO-5 PO PRN ×3 (08:23→21:27)
[2019-07-25] MEDS: PROSCAR PO SCH (08:24)
[2019-07-25] MEDS: CYMBALTA PO SCH (08:24)
[2019-07-25] MEDS: PROTONIX PO SCH (08:24)
[2019-07-25] MEDS: MILK OF MAGNESIA PO SCH ×2 (08:24→08:26)
[2019-07-25] MEDS: FLOMAX PO SCH (08:24)
[2019-07-25] MEDS: ZYLOPRIM PO SCH (08:24)
[2019-07-25] MEDS: ASPIRIN PO SCH (08:24)
[2019-07-25] MEDS: NEOSPORIN OINTMENT TUBE TOP SCH (08:25)
--- NOTE | 2019-07-25 09:32 | Diag Imaging Result Doc PS360 ---
EXAM: US ABDOMEN-COMPLETE 07/25/2019 HISTORY: Abdominal pain TECHNIQUE: Abdominal ultrasound COMMENT: The liver is unremarkable. There our small stones and sediment layering dependently in the gallbladder. The gallbladder wall is not thickened and there is no para cholecystic fluid. There is no sonographic Fitzgerald sign. There is antegrade flow in the portal vein. The common bile duct measures less than 5 mm. The right kidney is markedly hyperechoic. The cortex is lobulated. There is a similar appearance to the left kidney. The spleen is not enlarged. The aorta and inferior vena cava and pancreas are obscured by bowel gas. IMPRESSION: Renal atrophy and medical renal disease. Cholelithiasis without evidence of acute cholecystitis. Electronically signed by José Miguel Mercer 07/25/2019 9:30 AM
[2019-07-25] MEDS: APRESOLINE IV PRN (10:01)
--- NOTE | 2019-07-25 12:48 | PROVIDER PROGRESS NOTE ---
Progress Note Subjective: Pt voices general malaise. He cant tell me anything specific except he knew his blood pressure was elevated. Denies chest pain, nausea, and shortness of breath. Objective: temperature 98.4, pulse 57, respiration 16, blood pressure 168/75, 02 sat 94% on room air. General: elderly white male lying in bed in no acute distress. HEENT: normocephalic, a dramatic. Pupils equal and reactive. Trachea midline. Missing teeth. Skin: pale, warm and dry. Neck: supple, 6 cm JVD Cardiovascular: distant heart tones S1, S2 bradycardia rate and rhythm. Respiratory: lungs clear with equal air excursion anteriorly Abdomen: soft, obese, nondistended, nontender. Bowel sounds active. : Not observed, Werner in place with clear urine Extremities: 2+ pitting Edema to upper and lower extremities with Trace edema to his hips. Neurological: alert and oriented to person and place. Labs: WBC 6.63, hemoglobin 9.4, hematocrit 29.0, platelet count 160, sodium 139, potassium 4.3, chloride 104, carbon dioxide 22, BUN 46, creatinine 2.5, albumin 3.2. Intake 1725, output 2700. Impression: Acute kidney injury on chronic kidney disease stage 5. Prerenal from dehydration. Creatinine improved with Lactated Ringers. Off fluids now. No changes. Blood pressure. Above target. Fluid volume. Expanded. We will stop his fluids and give a dose of lasix. Anemia. Low but stable. Electrolytes and acid base balance. Stable. nutrition. Tolerating clear liquids well. medication review. No changes.
[2019-07-25] MEDS: AMBIEN PO SCH (21:27)
[2019-07-25] MEDS: SENOKOT PO SCH (21:28)
[2019-07-25] MEDS: LASIX PO SCH (21:28)
[2019-07-26] MEDS: ZANAFLEX PO SCH ×4 (03:54→16:03)
--- NOTE | 2019-07-26 05:23 | PROGRESS NOTE ---
DATE: 07/25/2019 SUBJECTIVE: The patient complains of upper abdominal bloating and pain with eating. He is on full liquid. He is on IV fluids. This morning he went to ultrasound, it showed gallstones. I am thinking all his symptoms due to gallbladder disease and I spoke to the patient this evening. OBJECTIVE: Vital signs: Temperature is 97 degrees, pulse is 57, blood pressure is stable. Blood pressure was running high this morning. HEENT: Within normal limits. Neck: Supple. Chest: Bilateral air entry. Abdomen: Tenderness in the right upper quadrant. Negative Fitzgerald sign. Otherwise, benign exam. INVESTIGATIONS: CBC: White cell count 6.6, hematocrit 29, platelets 160,000. Sodium 139, potassium 4.3, chloride 104, BUN 46, creatinine 2.5. Glucose 139. ASSESSMENT AND PLAN: 1. Acute kidney injury on chronic renal failure, improving. 2. Urinary tract infection with Escherichia coli, ESBL positive. Currently on ceftriaxone. 3. Hypertension. Hydralazine as needed. 4. Upper abdominal bloating and pain, suspicious for gallbladder disease. Positive for gallstones. I spoke to the patient. Also, get a HIDA scan if they both are positive consider cholecystectomy and continue present treatment. I appreciate Dr. Villarreal's input of chronic kidney disease. LEVEL OF DOCUMENTATION: 25 minutes. cc: Mike Dudley MD
--- NOTE | 2019-07-26 08:47 | Diag Imaging Result Doc PS360 ---
EXAM: HIDA SCAN W/ EJECTION FRACTION INDICATION: gallstones TECHNIQUE: 6 mCi of technetium 99 Choletec was administered intravenously and images were obtained in usual fashion after administration. COMPARISON: None. FINDINGS: There is normal immediate hepatocellular uptake after administration of the radiotracer. Activity is seen in the gallbladder beginning at about 30 minutes post administration. Activity is seen in small bowel beginning at about 31 minutes post administration. 8 ounces of liquid fatty meal was then administered orally. After 60 minutes, there was no significant gallbladder emptying. IMPRESSION: No significant gallbladder emptying after administration of a fatty meal suggesting possible gallbladder hypokinesis. Please correlate clinically. Electronically signed by Darrion Allen 07/26/2019 8:45 AM
[2019-07-26] MEDS: CYMBALTA PO SCH (08:49)
[2019-07-26] MEDS: SYNTHROID PO SCH (08:49)
[2019-07-26] MEDS: PROSCAR PO SCH (08:49)
[2019-07-26] MEDS: FLOMAX PO SCH (08:49)
[2019-07-26] MEDS: LASIX PO SCH (08:49)
[2019-07-26] MEDS: ZYLOPRIM PO SCH (08:49)
[2019-07-26] MEDS: PROTONIX PO SCH (08:49)
[2019-07-26] MEDS: NORCO-5 PO PRN ×2 (08:49→22:08)
[2019-07-26] MEDS: ASPIRIN PO SCH (08:49)
[2019-07-26] MEDS: MILK OF MAGNESIA PO SCH (10:20)
[2019-07-26] MEDS: NEOSPORIN OINTMENT TUBE TOP SCH (10:21)
--- NOTE | 2019-07-26 14:10 | GENERAL SURGERY PROGRESS NOTE ---
DATE: 07/26/2019 REQUESTING PHYSICIAN: Dr. Dudley. REASON FOR CONSULTATION: Possible biliary dyskinesia versus cholecystitis. HISTORY OF PRESENT ILLNESS: A 74-year-old gentleman with abdominal pain and nausea and vomiting. He has had it for several days, and was admitted on 07/20/2019. He has had an extensive workup, but eventually got a HIDA scan that shows an ejection fraction of 0. He has been admitted because he had acute renal failure. Overall, he is still hurting in his right upper quadrant. It seems to be postprandial. He has never had pain like this before. He wants to proceed with surgery. PAST MEDICAL HISTORY: Includes: 1. Diabetes mellitus type 2. 2. Chronic kidney disease. 3. Hypertension. 4. Gastroesophageal reflux disease. 5. Hypothyroidism. PAST SURGICAL HISTORY: Includes cervical fusion and back surgery. ALLERGIES: Surgical tape and Levaquin. CURRENT MEDICATIONS: Reviewed. Of note, he is on Rocephin. FAMILY HISTORY: No family history of coronary artery disease. SOCIAL HISTORY: Denies alcohol, tobacco, or illicit drugs. REVIEW OF SYSTEMS: Full 14 systems were reviewed and negative, except as specified in the HPI. PHYSICAL EXAMINATION: Vital Signs: The patient is currently afebrile. His vital signs are stable. General: No acute distress, but appears uncomfortable. male. Looks stated age. HEENT: Normocephalic, atraumatic. Pupils equal, round, reactive to light. Mucous membranes moist. Oropharynx benign. Neck: Supple. Trachea midline. Cardiovascular: Regular rate and rhythm. Lungs: Grossly clear. Abdomen: Soft. Some tenderness to palpation in the right upper quadrant, but no peritoneal signs. Extremities: Moves all extremities. Neurologic: Grossly intact. Skin: No signs of jaundice. Vascular: All extremities perfused. LABORATORY DATA: Reviewed. IMAGING: Reviewed. ASSESSMENT AND PLAN: A 74-year-old gentleman with likely biliary dyskinesia versus chronic cholecystitis versus acute cholecystitis. Cholecystitis. At this time, will plan on surgical intervention. Discussed with him, the risks, benefits, and alternatives of the procedure, risks including, but not limited to bleeding, infection, risk of anesthesia, risk of common bile duct injury and bile leak, risk of injuring other organs discussed. Will plan on surgical intervention today. cc: MD Mike Lucio MD
[2019-07-26] MEDS: APRESOLINE IV PRN (18:56)
[2019-07-26] MEDS ORDERED: DIPRIVAN 1% ONE (19:26)
[2019-07-26] MEDS ORDERED: QUELICIN (DOSE) ONE (19:26)
[2019-07-26] MEDS ORDERED: ZEMURON ONE (19:26)
[2019-07-26] MEDS ORDERED: XYLOCAINE-MPF 2% ONE (19:26)
[2019-07-26] MEDS ORDERED: LOPRESSOR ONE (20:03)
[2019-07-26] MEDS ORDERED: DURAMORPH ONE (20:05)
[2019-07-26] MEDS ORDERED: MARCAINE 0.25% PF/EPI 1:200,000 ONE (20:16)
[2019-07-26] MEDS ORDERED: SODIUM CHLORIDE 0.9% ONE (20:17)
[2019-07-26] MEDS ORDERED: LR 1,000 ML ONE (20:17)
[2019-07-26] MEDS ORDERED: DECADRON ONE (20:42)
[2019-07-26] MEDS ORDERED: ZOFRAN ONE (20:42)
[2019-07-26] MEDS ORDERED: ROBINUL ONE (20:47)
[2019-07-26] MEDS ORDERED: NEOSTIGMINE ONE ×2 (20:47→20:55)
[2019-07-26] MEDS ORDERED: DILAUDID ONE (21:13)
[2019-07-26] MEDS: LABETALOL ONE ×2 (21:23→21:34)
[2019-07-26] MEDS: DILAUDID ONE ×2 (21:26→21:30)
[2019-07-26] MEDS ORDERED: LABETALOL IV ONE (21:30)
--- NOTE | 2019-07-26 21:55 | NEPHROLOGY PROGRESS NOTE ---
DATE: 07/26/2019 SUBJECTIVE: He had a study this morning. He continues to have abdominal pain. No diarrhea. OBJECTIVE: Vital Signs: Blood pressure 140/91, heart rate 73, respirations 15, afebrile. Generally: Elderly man, chronically ill, in no distress. Skin: Pale and dry. Conjunctivae are pink. Neck: Neck veins are not appreciated. Heart: Regular. Lungs: Equal. No crackles. Abdomen: Obese, soft, modestly tender. Extremities: Minimal edema. No clubbing or cyanosis. IMPRESSION: 1. Acute kidney injury overlying chronic kidney disease. His creatinine has returned to his historical baseline. 2. Electrolytes/acid base/anemia/blood pressure all acceptable. No changes from my perspective. I understand he will have a cholecystectomy tomorrow. cc: MD Mike Briceno MD
[2019-07-26] MEDS ORDERED: NORCO-5 ONE (22:07)
--- NOTE | 2019-07-26 22:15 | PROGRESS NOTE ---
DATE: 07/26/2019 SUBJECTIVE: The patient complains of upper abdominal bloating every time he eats. He had positive gallstones on ultrasound and he had a HIDA scan done. I was in the nuclear medicine room, and it has been reported there is no activity, nonfunctioning of the gallbladder. I think most of his symptoms are due to acalculous cholecystitis along with gallstone disease. He cannot tolerate the diet, too. I discussed with the patient this is most likely gallbladder problem causing his symptoms. OBJECTIVE: Temperature is 98 degrees. Vital signs are stable. HEENT exam within normal limits. Neck is supple. No lymphadenopathy. Chest is clear. Heart sounds are regular. Belly is soft. Tender in the right side of the abdomen. INVESTIGATIONS: Yesterday creatinine was 2.5, which is baseline. ASSESSMENT AND PLAN: 1. Abdominal pain, right upper quadrant due to gallstone disease. Positive HIDA scan as well as ultrasound. Consider laparoscopic cholecystectomy. I spoke to Dr. Ca. He is transfusion nurse, and he is going to evaluate the patient. 2. Chronic kidney disease, stable. 3. Urinary tract infection due to Escherichia coli. Continue on intravenous antibiotics. We will follow up. Level of documentation 25 minutes. cc: Mike Dudley MD
[2019-07-27] MEDS: SENOKOT PO SCH ×2 (00:05→21:20)
[2019-07-27] MEDS: LASIX PO SCH ×2 (00:16→10:46)
[2019-07-27] MEDS: AMBIEN PO SCH ×2 (00:16→21:19)
[2019-07-27] MEDS: ZANAFLEX PO SCH ×5 (00:20→21:19)
[2019-07-27] MEDS: ROCEPHIN 1 GM in NS 50 ML IV SCH (00:21)
--- NOTE | 2019-07-27 00:38 | OPERATIVE NOTE ---
PROCEDURE DATE: 07/26/2019 PREOPERATIVE DIAGNOSIS: Cholecystitis. POSTOPERATIVE DIAGNOSIS: Cholecystitis. PROCEDURE PERFORMED: Laparoscopic cholecystectomy. SURGEON: Federico Ca MD. CROP RANCH HAND: None. ANESTHESIA: General endotracheal. INTRAOPERATIVE FINDINGS: Cholecystitis. COMPLICATIONS: None at the time of this dictation. ESTIMATED BLOOD LOSS: 5 mL. SPECIMENS REMOVED: Gallbladder. BRIEF HISTORY: A 74-year-old gentleman with right upper quadrant pain, postprandial nausea, vomiting, and an abnormal HIDA scan so that he would benefit from a cholecystectomy. The risks, benefits and alternatives were discussed. Risks including, but not limited to bleeding, infection, risk of anesthesia, risk of common bile duct injury and bile leak discussed. All questions answered. DESCRIPTION OF PROCEDURE: After informed consent was obtained the patient was brought to the operative theatre, transferred to the operating table, and placed in the supine position. General endotracheal anesthesia was then performed without complication. A formal time-out was then performed confirming the patient and procedure. All were in agreement that time. Attention was given to the abdomen. An infraumbilical incision was made through which using the Optiview technique we inserted an 11 mm trocar and connected it to insufflation, pneumoperitoneum was achieved. Under direct visualization we placed 3 more trocars all 5 mm, 1 subxiphoid, 2 in the right upper quadrant. Using these the gallbladder was identified, we retracted it cephalad, we dissected out the cystic duct and cystic artery to achieve the critical view of safety. We then doubly clipped and ligated the cystic duct and then dissected the gallbladder off of the gallbladder fossa. We placed it into an Endobag and brought it out through the infraumbilical incision, which had to be slightly enlarged to accommodate the gallbladder. We then irrigated out the abdomen until the suction fluid was clear. We closed the infraumbilical incision with a 0 Vicryl and a Pedro-Cameron device. We removed all trocars, disconnected insufflation, pneumoperitoneum was released. All skin incisions were closed with 4-0 Monocryl. The patient tolerated the procedure well and was transferred to the recovery room. cc: MD Mike Lucio MD
[2019-07-27] MEDS: APRESOLINE IV PRN (03:01)
[2019-07-27] MEDS: NORCO-5 PO PRN ×3 (04:25→21:20)
[2019-07-27 05:26] LABS: HEMOGLOBIN 12.2 g/dL (14.0-18.0); MCH 32.3 PG (27-31); MCHC 32.1 g/dL (33-37); MCV 100.5 FL (81-99); MPV 10.4 FL (7.4-10.4); RBC 3.78 XMIL (4.7-6.1); WBC 10.61 X1000 (4.8-10.8)
[2019-07-27 05:54] LABS: ALBUMIN 4.2 g/dL (3.5-5.0); CALCIUM 10.6 mg/dL (8.8-10.2); CREATININE 2.9 mg/dL (0.7-1.2); PHOSPHORUS 3.4 mg/dL (2.7-4.5); POTASSIUM 4.7 mmol/L (3.5-5.1)
[2019-07-27] MEDS: SYNTHROID PO SCH (06:10)
[2019-07-27] MEDS: MILK OF MAGNESIA PO SCH (10:46)
[2019-07-27] MEDS: ZYLOPRIM PO SCH (10:46)
[2019-07-27] MEDS: ASPIRIN PO SCH (10:46)
[2019-07-27] MEDS: PROSCAR PO SCH (10:46)
[2019-07-27] MEDS: CYMBALTA PO SCH (10:47)
[2019-07-27] MEDS: PROTONIX PO SCH (10:47)
[2019-07-27] MEDS: FLOMAX PO SCH (10:47)
[2019-07-27] MEDS: NEOSPORIN OINTMENT TUBE TOP SCH (12:27)
--- NOTE | 2019-07-27 12:42 | GENERAL SURGERY PROGRESS NOTE ---
DATE: 07/27/2019 SUBJECTIVE: Patient says he is feeling better. OBJECTIVE: Vital Signs: Patient is currently afebrile. He does have a heart rate in the 110s. Blood pressure is stable. General: No acute distress. Cardiovascular: Some tachycardia. Lungs: Grossly clear. Abdomen: Soft. Appropriately tender. ASSESSMENT AND PLAN: A 74-year-old gentleman status post laparoscopic cholecystectomy. Postoperative state. At this time, the patient seems to be doing well. We will defer discharge to his primary care physician but it seems like the patient is doing generally well. cc: MD Mike Lucio MD
--- NOTE | 2019-07-27 13:30 | PROVIDER PROGRESS NOTE ---
Progress Note Subjective: Voices some incisional pain, denies shortness of breath, chest pain, n/v, or trouble sleeping. Objective: temperature 97.9, pulse 114, respirations 18, blood pressure 160/105, 02 sat 95% on room air. General: elderly white male lying in bed in no acute distress. HEENT: normocephalic, atraumatic. Pupils equal and reactive. Trachea midline. Missing teeth. Skin: pale, warm and dry. Neck: supple, no JVD Cardiovascular: distant heart tones S1, S2 byachycardic rate and rhythm. Respiratory: lungs clear with equal air excursion anteriorly Abdomen: soft, obese, nondistended, nontender. Bowel sounds active. : Not observed, Werner in place with clear urine Extremities:1+ pitting Edema to upper extremities and 2+ lower extremity edema with Trace edema to his hips. Neurological: alert and oriented to person and place. Labs: WBC 10.61, hemoglobin 12.2, 38, platelet count to 22, sodium 135, potassium 4.7, chloride 96, carbon dioxide 22, BUN 42, creatinine 2.9. Intake 1650, output 2705. Impression: Acute kidney injury on chronic kidney disease stage 5. Prerenal from dehydration. Creatinine continues to improve with Lactated Ringers. No changes. Blood pressure. Above target. PRN hydralazine in place Fluid volume. Expanded. We will stop his fluids and observe. Anemia. Low but stable. Electrolytes and acid base balance. Stable. nutrition. Post op. Defer. medication review. No changes.
[2019-07-27] MEDS: NS 1,000 ML IV SCH (21:20)
--- NOTE | 2019-07-27 23:10 | PROGRESS NOTE ---
DATE: 07/27/2019 SUBJECTIVE: Finally the patient had a laparoscopic cholecystectomy last night. The patient came back to the floor around 11:00. He is still on clear liquids. Some postoperative pain. Symptoms are much improved. OBJECTIVE: On exam, temperature is 97 degrees, pulse is 56, blood pressure is on the low side. HEENT exam within normal limits. Chest is clear. Heart sounds are regular. Belly is soft, nontender. LABORATORY DATA: CBC: White cell count 10, hematocrit 38, platelets 222,000. Sodium 135, potassium 4.7, BUN 42, creatinine 2.2, glucose 220. ASSESSMENT AND PLAN: 1. Laparoscopic cholecystectomy, postoperative day 1 due to gallstone and acalculous cholecystitis. 2. Chronic kidney disease. 3. Escherichia coli. 4. Deconditioning. 5. Appreciated consultants. We will check daily labs. Slowly advance the diet and continue intravenous ceftriaxone. Also with gentle hydration. We will follow up. Level of documentation 25 minutes. cc: Mike Dudley MD
[2019-07-28] MEDS: ROCEPHIN 1 GM in NS 50 ML IV SCH (00:35)
[2019-07-28] MEDS: NORCO-5 PO PRN ×4 (03:38→22:08)
[2019-07-28] MEDS: ZANAFLEX PO SCH ×4 (03:38→22:08)
[2019-07-28] MEDS: SYNTHROID PO SCH (06:03)
[2019-07-28 06:05] LABS: ALBUMIN 3.1 g/dL (3.5-5.0); CALCIUM 9.4 mg/dL (8.8-10.2); CREATININE 3.2 mg/dL (0.7-1.2); PHOSPHORUS 3.6 mg/dL (2.7-4.5); POTASSIUM 4.8 mmol/L (3.5-5.1)
[2019-07-28 07:19] LABS: HEMATOCRIT 28.2 % (42.0-52.0); HEMOGLOBIN 8.9 g/dL (14.0-18.0); MCH 32.4 PG (27-31); MCHC 31.6 g/dL (33-37); MCV 102.5 FL (81-99); MPV 10.5 FL (7.4-10.4); RBC 2.75 XMIL (4.7-6.1); RDW 13.7 % (11.5-14.5); WBC 13.16 X1000 (4.8-10.8)
--- NOTE | 2019-07-28 07:47 | Diag Imaging Result Doc PS360 ---
EXAM: CHEST-1 VIEW INDICATION: assess for pulmonary edema TECHNIQUE: One view COMPARISON: 07/19/2019 FINDINGS: There is suggestion of minimal subsegmental atelectasis at the left lung base. There is evidence of prior granulomatous disease, stable. The lungs are grossly clear, otherwise. There is no discrete pleural fluid collection or pneumothorax. The cardiomediastinal silhouette and central vasculature are grossly unremarkable. IMPRESSION: Minimal left basilar subsegmental atelectasis. No definite acute pathology by plain radiograph, otherwise. Electronically signed by Darrion Allen 07/28/2019 7:44 AM
[2019-07-28] MEDS: PROSCAR PO SCH (09:51)
[2019-07-28] MEDS: PROTONIX PO SCH (09:51)
[2019-07-28] MEDS: FLOMAX PO SCH (09:51)
[2019-07-28] MEDS: ZYLOPRIM PO SCH (09:51)
[2019-07-28] MEDS: ASPIRIN PO SCH (09:51)
[2019-07-28] MEDS: CYMBALTA PO SCH (09:51)
[2019-07-28] MEDS: NS 1,000 ML IV SCH ×2 (09:56→21:00)
[2019-07-28] MEDS: MILK OF MAGNESIA PO SCH (10:35)
[2019-07-28] MEDS: NEOSPORIN OINTMENT TUBE TOP SCH (14:51)
--- NOTE | 2019-07-28 15:55 | GENERAL SURGERY PROGRESS NOTE ---
DATE: 07/28/2019 The patient seems to be doing well clinically after his gallbladder surgery. He has been hemodynamically stable. His abdominal pain is appropriate. From a surgical point of view, he can be discharged once okay with his primary care physician. cc: MD Mike Lucio MD
--- NOTE | 2019-07-28 20:00 | NEPHROLOGY PROGRESS NOTE ---
DATE: 07/28/2019 SUBJECTIVE: He is much better today. He is eating. He denies abdominal pain. No diarrhea, no shortness of breath. OBJECTIVE: Blood pressure 91/53, heart rate 71, respirations 14, afebrile. Generally, no acute distress. Skin is warm and dry. Oropharynx is moist. Neck veins are not appreciated. Heart is regular. Lungs are equal. No crackles or wheezes. Abdomen is soft, nontender. Bowel sounds are present. Extremities with trace edema. No clubbing or cyanosis. IMPRESSION AND PLAN: Chronic kidney disease stage 4 to 5. Baseline creatinine 2.5 to 3. He has been roughly within that range, 3.2 today. Volume status is acceptable. Electrolytes and acid- base are in target. Blood pressure is low-normal. Chest x-ray without pulmonary edema. No changes. cc: MD Mike Briceno MD
[2019-07-28] MEDS: SENOKOT PO SCH (22:08)
[2019-07-28] MEDS: AMBIEN PO SCH (22:09)
[2019-07-29] MEDS: ROCEPHIN 1 GM in NS 50 ML IV SCH (01:48)
[2019-07-29] MEDS: NORCO-5 PO PRN ×3 (04:33→21:57)
[2019-07-29] MEDS: ZANAFLEX PO SCH ×4 (04:33→21:58)
[2019-07-29 06:31] LABS: HEMATOCRIT 29.9 % (42.0-52.0); HEMOGLOBIN 9.3 g/dL (14.0-18.0); MCH 32.3 PG (27-31); MCHC 31.1 g/dL (33-37); MCV 103.8 FL (81-99); MPV 10.4 FL (7.4-10.4); RBC 2.88 XMIL (4.7-6.1); RDW 13.8 % (11.5-14.5); WBC 9.83 X1000 (4.8-10.8)
--- NOTE | 2019-07-29 06:36 | PROGRESS NOTE ---
DATE: 07/28/2019 SUBJECTIVE: The patient is doing better postop day 2 for laparoscopic cholecystectomy. No nausea or postop pain. PHYSICAL EXAMINATION: Vital Signs: On exam, temperature is 97 degrees, pulse 58, blood pressure 131/79. HEENT Exam: Within normal limits. Chest: Clear. Heart: Sounds are regular. Abdomen: Belly is soft, nontender. Neurologic: No obvious deficits. INVESTIGATIONS: White cell count 13, hematocrit 28, platelet 174. Sodium 136, potassium 4.8, BUN 51, creatinine 3.2. ASSESSMENT AND PLAN: 1. Postoperative laparoscopic cholecystectomy. Hematocrit decreased and elevated creatinine. Continue on intravenous fluids. 2. Blood pressure is stable. 3. Urinary tract infection on ceftriaxone. 4. Gout on Zyloprim. Follow up on the blood workup on a daily basis and, if he is stable over the weekend, we will discharge to rehab on Wednesday. LEVEL OF DOCUMENTATION: 25 minutes. cc: Mike Dudley MD
[2019-07-29 06:39] LABS: ALBUMIN 3.2 g/dL (3.5-5.0); CALCIUM 8.9 mg/dL (8.8-10.2); PHOSPHORUS 3.4 mg/dL (2.7-4.5); POTASSIUM 4.4 mmol/L (3.5-5.1)
[2019-07-29] MEDS: SYNTHROID PO SCH (07:07)
[2019-07-29] MEDS: NS 1,000 ML IV SCH ×2 (09:52→22:00)
[2019-07-29] MEDS: ASPIRIN PO SCH (09:53)
[2019-07-29] MEDS: MILK OF MAGNESIA PO SCH (09:53)
[2019-07-29] MEDS: FLOMAX PO SCH (09:53)
[2019-07-29] MEDS: CYMBALTA PO SCH (09:53)
[2019-07-29] MEDS: ZYLOPRIM PO SCH (09:54)
[2019-07-29] MEDS: PROTONIX PO SCH (09:54)
[2019-07-29] MEDS: PROSCAR PO SCH (09:58)
[2019-07-29] MEDS: NEOSPORIN OINTMENT TUBE TOP SCH (18:42)
--- NOTE | 2019-07-29 19:45 | PROGRESS NOTE ---
DATE: 07/29/2019 SUBJECTIVE: The patient says his abdomen is starting to hurt a little bit more today. It may be just postoperatively. He says he has not had a bowel movement since surgery. It may be that his bowels are coming back awake a little bit better since he has been away from anesthesia. He says it is not severe. OBJECTIVE: Blood pressure is 99/48, but earlier was 147/79. Respirations 14, pulse 58, temperature 97.7 degrees Fahrenheit.HEENT: Normocephalic. EOMs intact. PERRLA. Throat clear. Lungs: Clear to auscultation and percussion without rhonchi, rales, or wheezes. Heart: Regular rate and rhythm without murmurs, gallops, friction rubs. Abdomen: Soft with mild tenderness due to the surgery. He does have some active bowel sounds. Neurological: Intact grossly. LABORATORY: White count 9830, hemoglobin 9.3, hematocrit 29.9. Electrolytes, essentially normal. Creatinine is 3.0. 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 His GFR is 21. ASSESSMENT: 1. Status post cholecystectomy. 2. Chronic kidney disease. PLAN: We will continue to support. Nephrology is following as well as Surgery. cc: MD Mike Elliott Jr, MD
[2019-07-29] MEDS: SENOKOT PO SCH (21:57)
[2019-07-29] MEDS: AMBIEN PO SCH (21:57)
[2019-07-30] MEDS: ROCEPHIN 1 GM in NS 50 ML IV SCH (00:44)
[2019-07-30] MEDS: NORCO-5 PO PRN ×3 (05:05→22:00)
[2019-07-30] MEDS: ZANAFLEX PO SCH ×4 (05:06→21:59)
[2019-07-30 05:57] LABS: HEMATOCRIT 28.3 % (42.0-52.0); HEMOGLOBIN 8.8 g/dL (14.0-18.0); MCH 32.5 PG (27-31); MCHC 31.1 g/dL (33-37); MCV 104.4 FL (81-99); MPV 10.1 FL (7.4-10.4); RBC 2.71 XMIL (4.7-6.1); RDW 13.6 % (11.5-14.5); WBC 8.38 X1000 (4.8-10.8)
[2019-07-30 06:15] LABS: ALBUMIN 3.2 g/dL (3.5-5.0); CALCIUM 8.9 mg/dL (8.8-10.2); CREATININE 2.8 mg/dL (0.7-1.2); PHOSPHORUS 2.6 mg/dL (2.7-4.5); POTASSIUM 4.5 mmol/L (3.5-5.1)
[2019-07-30] MEDS: SYNTHROID PO SCH (06:45)
[2019-07-30] MEDS: PROTONIX PO SCH (10:13)
[2019-07-30] MEDS: PROSCAR PO SCH (10:13)
[2019-07-30] MEDS: FLOMAX PO SCH (10:13)
[2019-07-30] MEDS: MILK OF MAGNESIA PO SCH (10:13)
[2019-07-30] MEDS: ASPIRIN PO SCH (10:13)
[2019-07-30] MEDS: ZYLOPRIM PO SCH (10:14)
[2019-07-30] MEDS: NS 1,000 ML IV SCH ×2 (10:14→17:13)
[2019-07-30] MEDS: CYMBALTA PO SCH (10:14)
--- NOTE | 2019-07-30 12:02 | GENERAL SURGERY PROGRESS NOTE ---
DATE: 07/29/2019 SUBJECTIVE: The patient is doing okay today. No new complaints. He is tolerating his diet. OBJECTIVE: Vital Signs: He is afebrile. Vital signs are stable. General: He is awake, alert, and oriented x3. No acute distress. Gastrointestinal: Soft, nondistended, appropriately tender. Incision is clean, dry, and intact. LABORATORY DATA: White blood cell count 9, hemoglobin 9.3, hematocrit 29. BUN 55, creatinine 3.0. ASSESSMENT AND PLAN: A 74-year-old male status post laparoscopic cholecystectomy with chronic kidney disease. He is slowly recovering and hemodynamically stable, status post cholecystectomy. cc: MD Mike Henley MD
[2019-07-30] MEDS: NEOSPORIN OINTMENT TUBE TOP SCH (12:38)
--- NOTE | 2019-07-30 13:52 | PROGRESS NOTE ---
DATE: 07/30/2019 SUBJECTIVE: Patient says he is feeling maybe a little bit better. Still has not had a bowel movement. His belly does not hurt as much as it did yesterday. OBJECTIVE: Vital Signs: Stable. HEENT: Normocephalic. EOMs intact. PERRLA. Throat clear. Lungs: Clear to auscultation and percussion without rhonchi, rales, or wheezes. Heart: Regular rate and rhythm without murmurs, gallops, or friction rubs. Abdomen: Soft with mild tenderness due to surgery. He does have active bowel sounds. Neurological: Examination intact grossly. Laboratory: Shows a white count of 8380, hemoglobin 8.8, hematocrit 28.3. Electrolytes: Essentially stable except for creatinine of 2.8. ASSESSMENT: 1. Status post cholecystectomy, recovering. 2. Chronic kidney disease. PLAN: Continue support. Surgery and nephrology are involved. cc: MD Mike Elliott Jr, MD
--- NOTE | 2019-07-30 15:09 | GENERAL SURGERY PROGRESS NOTE ---
DATE: 07/30/2019 SUBJECTIVE: The patient is doing okay today. No new complaints or concerns. OBJECTIVE: Vital signs: He is afebrile. Vital signs are stable. General: He is awake, alert, oriented x3. No acute distress. Gastrointestinal: Soft, nondistended, minimally tender. Incisional dressings clean and dry. LABORATORY: BUN 58, creatinine 2.8. ASSESSMENT AND PLAN: A 74-year-old male status post laparoscopic cholecystectomy with acute on chronic kidney disease. Overall, he seems stable postoperatively, and I believe he is going to rehab tomorrow. cc: MD Mike Henley MD
[2019-07-30] MEDS: SENOKOT PO SCH (21:59)
[2019-07-30] MEDS: AMBIEN PO SCH (21:59)
[2019-07-31] MEDS: ROCEPHIN 1 GM in NS 50 ML IV SCH (01:29)
[2019-07-31] MEDS: NORCO-5 PO PRN ×3 (04:54→21:30)
[2019-07-31] MEDS: ZANAFLEX PO SCH ×4 (04:54→21:30)
[2019-07-31 05:36] LABS: HEMATOCRIT 29.1 % (42.0-52.0); MCH 32.3 PG (27-31); MCHC 30.9 g/dL (33-37); MCV 104.3 FL (81-99); MPV 10.5 FL (7.4-10.4); RBC 2.79 XMIL (4.7-6.1); RDW 13.9 % (11.5-14.5); WBC 8.67 X1000 (4.8-10.8)
[2019-07-31 05:58] LABS: ALBUMIN 3.1 g/dL (3.5-5.0); CALCIUM 8.6 mg/dL (8.8-10.2); CREATININE 2.5 mg/dL (0.7-1.2); PHOSPHORUS 2.7 mg/dL (2.7-4.5); POTASSIUM 4.6 mmol/L (3.5-5.1)
[2019-07-31] MEDS: NS 1,000 ML IV SCH ×2 (06:33→21:30)
[2019-07-31] MEDS: SYNTHROID PO SCH (07:23)
--- NOTE | 2019-07-31 07:40 | GENERAL SURGERY PROGRESS NOTE ---
DATE: 07/31/2019 SUBJECTIVE: Patient had a little bit of abdominal discomfort today. OBJECTIVE: Vital Signs: Patient is currently afebrile. Vital signs stable. General Exam: No acute distress. Resting comfortably. Cardiovascular: Regular rate and rhythm. Lungs: Grossly clear. Abdomen: Soft. Seems appropriately tender. No peritoneal signs. ASSESSMENT AND PLAN: A 74-year-old gentleman status post laparoscopic cholecystectomy. 1. Postoperative state: At this time, he has got a little abdominal pain. We will continue to monitor. His white blood cell count is normal. We will follow up with his primary care physician's recommendations. cc: MD Mike Lucio MD
[2019-07-31] MEDS ORDERED: RELISTOR SUBQ ONE (08:48)
[2019-07-31] MEDS: ASPIRIN PO SCH (09:35)
[2019-07-31] MEDS: CYMBALTA PO SCH (09:35)
[2019-07-31] MEDS: PROSCAR PO SCH (09:35)
[2019-07-31] MEDS: ZYLOPRIM PO SCH (09:35)
[2019-07-31] MEDS: PROTONIX PO SCH (09:35)
[2019-07-31] MEDS: FLOMAX PO SCH (09:35)
[2019-07-31] MEDS: MILK OF MAGNESIA PO SCH (09:35)
[2019-07-31] MEDS: MIRALAX PO SCH (10:16)
--- NOTE | 2019-07-31 10:21 | NEPHROLOGY PROGRESS NOTE ---
DATE: 07/31/2019 SUBJECTIVE: Patient resting in bed. He is complaining of significant abdominal pain. OBJECTIVE: Vital Signs: Temperature 98.7 degrees, pulse 66, respiratory rate 18, blood pressure 129/69. Intake 2.4 L, output 2.5 L voided urine. General: This is an elderly gentleman, resting in bed. He is in some mild distress secondary to abdominal pain. He does have some nausea, has not vomited. HEENT: Normocephalic, atraumatic. Oral mucosa dry. Neck: Supple. No JVD noted. Trachea midline. Cardiovascular: Regular rate and rhythm. There is no murmur. Pulmonary: He has equal excursion. He is clear bilaterally. Abdomen: Round, soft, mild tenderness diffusely. Positive bowel sounds. : Voiding. Extremities: No edema, clubbing, cyanosis. Integumentary: Skin is pale, warm, and dry. Neurologic: Grossly nonfocal. LABORATORY DATA: WBC of 8.6, hemoglobin 9. Sodium 140, potassium 4.6, CO2 of 23, BUN 55, creatinine 2.5. ASSESSMENT AND PLAN: 1. Chronic kidney disease stage 4 to 5. Renal function remains at his historic baseline. Urine output is adequate. Will continue to follow along. 2. Abdominal pain. Will order a KUB this morning. He is status post laparoscopic cholecystectomy. 3. Electrolytes, acid-base balance, and anemia. These are stable. 4. Fluid volume. He is in slight negative volume status, euvolemic on exam. Blood pressure in target. Dictated by TARA Livingston for Jus Villarreal MD Face to face encounter, data reviewed, discussed with Kg Johnson on 07/31/19. I agree with the above assessment and plan of care. cc: MD Mike Briceno MD MTDD
--- NOTE | 2019-07-31 15:27 | Diag Imaging Result Doc PS360 ---
EXAM: KUB ABDOMEN INDICATION: abdominal pain TECHNIQUE: One view COMPARISON: 02/26/2019 FINDINGS: There are unremarkable bowel gas and stool patterns. There is an average amount stool in the colon. There is no obstructive bowel pattern. There is no evidence of large volume free abdominal gas. There is no evidence of organomegaly. IMPRESSION: No evidence of acute pathology by plain radiograph. Electronically signed by Darrion Allen 07/31/2019 3:25 PM
[2019-07-31] MEDS: SENOKOT PO SCH (21:30)
[2019-07-31] MEDS: AMBIEN PO SCH (21:30)
--- NOTE | 2019-07-31 21:45 | PROGRESS NOTE ---
DATE: 07/31/2019 SUBJECTIVE: Interval history was reviewed over the weekend. The patient complains of constipation and no abdominal pain. Dr. Villarreal ordered a KUB. He is constipated. He has been taking pain medicine. He is on IV fluids. REVIEW OF SYSTEMS: Other than constipation, none reported. PHYSICAL EXAMINATION: Vital signs: Temperature is 98.1 degrees, pulse 58, blood pressure is 164/85, on room air 100%. HEENT: Within normal limits. Neck: Supple. Chest: Clear. Heart: Sounds are regular. Abdomen: Belly is soft and distended. Hyperactive bowel sounds. : Werner was placed. Completely bedridden. INVESTIGATIONS: 1. KUB: Nonspecific ileus and moderate stool. 2. CBC: White cell count 8.6, hematocrit 29, platelets 184,000. 3. Sodium 140, potassium 4.6, chloride 105, BUN 55, creatinine 2.5, glucose 117, albumin 3.1. ASSESSMENT AND PLAN: 1. Laparoscopic cholecystectomy, day 3. 2. Chronic kidney failure. 3. Urinary tract infection. 4. Chronic back pain, on chronic narcotics for pain control. 5. Deconditioning. 6. Hypertension. 7. Gout. PLAN: 1. Continue intravenous fluids. 2. Hypothyroidism, on Synthroid. 3. Relistor was given along with MiraLAX for constipation. 4. Continue intravenous ceftriaxone. 5. If he is eating well, stable, we will plan to discharge to the rehab. LEVEL OF DOCUMENTATION: 25 minutes. cc: Mike Dudley MD
[2019-08-01] MEDS: ROCEPHIN 1 GM in NS 50 ML IV SCH ×2 (00:13→23:46)
[2019-08-01] MEDS: NORCO-5 PO PRN ×2 (03:58→21:38)
[2019-08-01] MEDS: ZANAFLEX PO SCH ×4 (03:58→21:38)
[2019-08-01] MEDS: SYNTHROID PO SCH (06:21)
[2019-08-01] MEDS: PROTONIX PO SCH (10:03)
[2019-08-01] MEDS: ASPIRIN PO SCH (10:03)
[2019-08-01] MEDS: PROSCAR PO SCH (10:03)
[2019-08-01] MEDS: ZYLOPRIM PO SCH (10:03)
[2019-08-01] MEDS: CYMBALTA PO SCH (10:04)
[2019-08-01] MEDS: FLOMAX PO SCH (10:04)
[2019-08-01] MEDS: MILK OF MAGNESIA PO SCH (10:04)
[2019-08-01] MEDS: MIRALAX PO SCH (10:04)
[2019-08-01] MEDS: NS 1,000 ML IV SCH ×2 (10:07→21:41)
[2019-08-01] MEDS: NEOSPORIN OINTMENT TUBE TOP SCH (10:07)
--- NOTE | 2019-08-01 14:49 | GENERAL SURGERY PROGRESS NOTE ---
DATE: 08/01/2019 SUBJECTIVE: Patient is doing okay. He is having issues with constipation, but otherwise seems to be doing okay. He is not really having significant abdominal pain. PLAN: At this point, main issue is disposition. Hopefully, he can be discharged to a rehab facility soon. cc: MD Mike Lucio MD
--- NOTE | 2019-08-01 16:15 | PROVIDER PROGRESS NOTE ---
Progress Note Subjective: complains of abdominal fullness and no recent bowel movement. Objective: temperature 98.1, pulse 66, respirations 15, blood pressure 164/72, 02 sat 100% on room air. General: elderly white male lying in bed in no acute distress. HEENT: normocephalic, atraumatic. Pupils equal and reactive. Trachea midline. Missing teeth. Skin: pale, warm and dry. Neck: supple, no JVD Cardiovascular: distant heart tones S1, S2 regular rate and rhythm. Respiratory: lungs clear with equal air excursion anteriorly Abdomen: soft, obese, nondistended, tender to right lower quad. Bowel sounds active. : Not observed, Werner in place with clear urine Extremities:1+ pitting Edema to upper and lower extremities bilaterally Neurological: alert and oriented to person and place. Labs: Intake 1570, output 2300 Impression: Acute kidney injury on chronic kidney disease stage 4. He is at his baseline Creatinine. Continue current management. Blood pressure. In target. Fluid volume. Euvolemic on exam. Anemia. Low but stable. Electrolytes and acid base balance. Stable. nutrition. Encouraged to eat. medication review. No changes.
[2019-08-01] MEDS: AMBIEN PO SCH (21:38)
[2019-08-01] MEDS: SENOKOT PO SCH (21:39)
--- NOTE | 2019-08-01 23:43 | PROGRESS NOTE ---
DATE: 08/01/2019 SUBJECTIVE: The patient still has bloating. No abdominal pain. Has not had a bowel movement despite MiraLAX and Relistor. He is not ready to go back to the rehab until he has a bowel movement. REVIEW OF SYSTEMS: Otherwise none reported. OBJECTIVE: Temperature is 97.7 degrees, pulse 67, blood pressure is 160/85. Basically bedridden. Chest is clear. Heart sounds are regular. Belly is soft. Bowel sounds present. Werner was placed. INVESTIGATIONS: None reported today. Creatinine was yesterday 2.5. ASSESSMENT AND PLAN: 1. Status post laparoscopic cholecystectomy. Constipation is issue. Continue on the Senokot and MiraLAX. 2. Urinary tract infection, on intravenous ceftriaxone. 3. Chronic kidney disease, stable. 4. The patient is not eating well. Once he is moving the bowels and able to eat, we will attempt to discharge to the rehab. 5. Hypothyroidism on Synthroid. 6. Hypertension, currently stable. 7. We will follow up on his bowel movements and eating, and then slowly cut down the fluids. Level of documentation 25 minutes. cc: Mike Dudley MD
[2019-08-02] MEDS: ZANAFLEX PO SCH ×4 (04:12→22:50)
[2019-08-02] MEDS: NORCO-5 PO PRN ×3 (04:12→22:51)
[2019-08-02] MEDS: SYNTHROID PO SCH ×2 (05:52→06:22)
[2019-08-02] MEDS ORDERED: SORBITOL PO ONE (07:28)
[2019-08-02] MEDS: PROSCAR PO SCH (09:19)
[2019-08-02] MEDS: MIRALAX PO SCH (09:19)
[2019-08-02] MEDS: PROTONIX PO SCH (09:19)
[2019-08-02] MEDS: MILK OF MAGNESIA PO SCH (09:19)
[2019-08-02] MEDS: CYMBALTA PO SCH (09:19)
[2019-08-02] MEDS: ZYLOPRIM PO SCH (09:19)
[2019-08-02] MEDS: FLOMAX PO SCH (09:19)
[2019-08-02] MEDS: ASPIRIN PO SCH (09:19)
[2019-08-02] MEDS: NEOSPORIN OINTMENT TUBE TOP SCH (09:20)
[2019-08-02] MEDS: NS 1,000 ML IV SCH ×3 (09:31→22:22)
--- NOTE | 2019-08-02 11:13 | GENERAL SURGERY PROGRESS NOTE ---
DATE: 08/02/2019 SUBJECTIVE: Patient seems to be doing okay. He says he is passing gas but he has not had a bowel movement. OBJECTIVE: Vital Signs: Patient is currently afebrile. His vital signs are stable. General: No acute distress. Cardiovascular: Regular rate and rhythm. Lungs: Grossly clear. Abdomen: Appropriately tender. ASSESSMENT AND PLAN: A 74-year-old gentleman status post laparoscopic cholecystectomy. Postoperative state. At this time disposition per his primary care physician. Hopefully, he will have return of bowel function here soon. cc: MD Mike Lucio MD
--- NOTE | 2019-08-02 11:24 | PROVIDER PROGRESS NOTE ---
Progress Note Subjective: pt lying in bed, admits to no appetite and muscle spasms during the night. Objective: temperature 97.9, pulse 60, respirations 18, blood pressure 145/69, 02 sat 98% on room air. General: elderly white male lying in bed in no acute distress. HEENT: normocephalic, atraumatic. Pupils equal and reactive. Mucous membranes dry. Trachea midline. Missing teeth. Skin: pale, warm and dry. Neck: supple, no JVD Cardiovascular: distant heart tones S1, S2 regular rate and rhythm. Respiratory: lungs clear with equal air excursion anteriorly Abdomen: soft, obese, nondistended, nontender. Bowel sounds active. : Not observed, Werner in place with clear urine Extremities:2+ pitting Edema to lower extremities bilaterally with Trace generalized edema to BUE. Neurological: alert and oriented to person and place. Labs: intake 1250, output 1400. Impression: Acute kidney injury on chronic kidney disease stage 4. He is at his baseline Creatinine. Will repeat labs tomorrow. Continue current management. Blood pressure. In target. Fluid volume. Euvolemic on exam. Anemia. Low but stable. Electrolytes and acid base balance. Stable. Nutrition. Encouraged to eat. Staff assist if needed. Medication review. No changes.
--- NOTE | 2019-08-02 21:33 | PROGRESS NOTE ---
DATE: 08/02/2019 SUBJECTIVE: The patient is still constipated, bloating. The rest of the review of systems are normal. PHYSICAL EXAMINATION: Vital signs: Temperature is 98.5 degrees, pulse 50, blood pressure is stable. HEENT: Within normal limits. Neck: Supple. No lymphadenopathy. No goiter. Chest: Clear. Heart: Sounds are regular. Abdomen: Belly is soft, nontender. Bowel sounds 1+. INVESTIGATIONS: None reported. ASSESSMENT AND PLAN: 1. Extended-spectrum beta lactamase Escherichia coli, which is only 50,000 to 60,000. Discontinue intravenous ceftriaxone. 2. Chronic indwelling Werner catheter. It could be contaminant. 3. Chronic kidney disease, stable. 4. Status post laparoscopic cholecystectomy, chronic back pain, on narcotics. 5. Constipation. Will try Fleet enemas if no better. Continue on MiraLAX. Continue intravenous fluids and if he gets a good bowel movement and eating well, will discharge to the rehab. LEVEL OF DOCUMENTATION: 25 minutes. cc: Mike Dudley MD
[2019-08-02] MEDS: AMBIEN PO SCH (22:51)
[2019-08-02] MEDS: SENOKOT PO SCH (22:52)
[2019-08-03] MEDS: NS 1,000 ML IV SCH ×2 (01:06→11:18)
[2019-08-03] MEDS: NORCO-5 PO PRN ×3 (02:53→17:18)
[2019-08-03] MEDS: ZANAFLEX PO SCH ×5 (02:54→21:29)
[2019-08-03 05:29] LABS: HEMATOCRIT 27.8 % (42.0-52.0); HEMOGLOBIN 8.4 g/dL (14.0-18.0); MCH 31.3 PG (27-31); MCHC 30.2 g/dL (33-37); MCV 103.7 FL (81-99); MPV 10.2 FL (7.4-10.4); RBC 2.68 XMIL (4.7-6.1); RDW 13.7 % (11.5-14.5); WBC 8.04 X1000 (4.8-10.8)
[2019-08-03 05:48] LABS: ALBUMIN 2.9 g/dL (3.5-5.0); CALCIUM 8.8 mg/dL (8.8-10.2); CREATININE 2.4 mg/dL (0.7-1.2); PHOSPHORUS 2.8 mg/dL (2.7-4.5)
[2019-08-03] MEDS: SYNTHROID PO SCH (06:51)
[2019-08-03] MEDS: ASPIRIN PO SCH (10:46)
[2019-08-03] MEDS: FLOMAX PO SCH (10:46)
[2019-08-03] MEDS: PROTONIX PO SCH (10:46)
[2019-08-03] MEDS: MIRALAX PO SCH (10:47)
[2019-08-03] MEDS: CYMBALTA PO SCH (10:47)
[2019-08-03] MEDS: NEOSPORIN OINTMENT TUBE TOP SCH (10:47)
[2019-08-03] MEDS: PROSCAR PO SCH (10:47)
[2019-08-03] MEDS: MILK OF MAGNESIA PO SCH (10:47)
[2019-08-03] MEDS: ZYLOPRIM PO SCH (10:47)
--- NOTE | 2019-08-03 11:09 | GENERAL SURGERY PROGRESS NOTE ---
DATE: 08/03/2019 SUBJECTIVE: The patient seems to be doing okay. He did have a bowel movement yesterday so he is passing gas. He is feeling better. From a surgical point of view, I think he is healing up. We will await disposition plan per his primary care physician. cc: MD Mike Lucio MD
--- NOTE | 2019-08-03 15:13 | PROVIDER PROGRESS NOTE ---
Progress Note Subjective: Pt voices feeling better today with an increased appetite. No n/v. Still no BM. rg Objective: temperature 97.4, pulse 50, respirations 15, blood pressure 136/68, 02 sat 98% on room air. General: elderly white male lying in bed in no acute distress. HEENT: normocephalic, atraumatic. Pupils equal and reactive. Mucous membranes dry. Trachea midline. Missing teeth. Skin: pale, warm and dry. Neck: supple, 6 cm JVD Cardiovascular: distant heart tones S1, S2 regular rate and rhythm. Respiratory: lungs clear with equal air excursion anteriorly Abdomen: soft, obese, nondistended, nontender. Bowel sounds active. : Not observed, Werner in place with clear urine Extremities:1+ pitting Edema to lower extremities bilaterally with Trace generalized edema to BUE. Neurological: alert and oriented to person and place. Labs: WBC 8.04, hemoglobin 8.4, [place] 27.8, platelet count 189, sodium 139, potassium 5.0, chloride 105, carbon dioxide 23, BUN 42, creatinine 2.4. Intake 1140, output 2049. Impression: Acute kidney injury on chronic kidney disease stage 4. His Creatinine has returned to historical baseline. Continue current management. Blood pressure. In target. Fluid volume. Slightly expanded. We will stop his IV fluids. Anemia. Low but stable. Electrolytes and acid base balance. Stable. Nutrition.Improved. Medication review. No changes.
[2019-08-03] MEDS: AMBIEN PO SCH (20:40)
[2019-08-03] MEDS: SENOKOT PO SCH (20:41)
--- NOTE | 2019-08-03 21:52 | PROGRESS NOTE ---
DATE: 08/03/2019 SUBJECTIVE: The patient is doing better. He had a good bowel movement. He is feeling much improved. OBJECTIVE: On examination his vital signs are stable. HEENT exam within normal limits. Neck is supple. Chest is clear. Heart sounds are regular. Belly is soft, nontender. Werner was placed. No obvious deficits. LABORATORY DATA: CBC: White cell count 8.0, hematocrit 27.8, platelets 189,000. Sodium 139, potassium 5, chloride 105, BUN 42, creatinine 2.4, glucose 124, albumin 2.9. ASSESSMENT: 1. Urinary tract infection. 2. Status post laparoscopic cholecystectomy. 3. Constipation. 4. Chronic kidney disease. 5. Chronic back pain. PLAN: Now he is medically stable. I called the nursing staff to get a bed at [facility]. When a bed is available we will discharge. Continue present treatment. Level of documentation 25 minutes. cc: Mike Dudley MD
[2019-08-04] MEDS: NORCO-5 PO PRN ×2 (01:22→10:00)
[2019-08-04] MEDS: ZANAFLEX PO SCH ×3 (03:35→15:33)
[2019-08-04] MEDS: SYNTHROID PO SCH ×2 (05:55→06:36)
[2019-08-04] MEDS: MILK OF MAGNESIA PO SCH (09:51)
[2019-08-04] MEDS: PROTONIX PO SCH (09:52)
[2019-08-04] MEDS: ASPIRIN PO SCH (09:52)
[2019-08-04] MEDS: FLOMAX PO SCH (09:52)
[2019-08-04] MEDS: ZYLOPRIM PO SCH (09:52)
[2019-08-04] MEDS: CYMBALTA PO SCH (09:52)
[2019-08-04] MEDS: PROSCAR PO SCH (09:52)
[2019-08-04] MEDS: MIRALAX PO SCH (09:53)
[2019-08-04] MEDS: NEOSPORIN OINTMENT TUBE TOP SCH ×2 (09:56→10:16)
--- NOTE | 2019-08-04 10:39 | DISCHARGE SUMMARY ---
ADMISSION DATE: 07/20/2019 DISCHARGE DATE: 08/04/2019 DISCHARGE DIAGNOSES: 1. Abdominal pain due to acute cholecystitis due to a combination of gallstone disease and acalculous cholecystitis. 2. Acute kidney injury due to intravascular volume depletion. 3. Chronic renal failure. 4. Urinary tract infection due to chronic indwelling Werner catheter, extended spectrum beta lactamase Escherichia coli positive. 5. Benign prostatic hypertrophy. 6. Paroxysmal atrial fibrillation. 7. Decreased performance status due to chronic back pain with multiple surgeries. 8. Hypertension. 9. Gout. 10.Acid reflux disease. 11.Hypothyroidism. 12.Type 2 diabetes, diet controlled. 13.Constipation due to chronic pain therapy. CONSULTATIONS: Dr. Villarreal, Dr. Federico Ca PROCEDURES: Ultrasound of the abdomen, gallstones disease. Renal atrophy and medical renal disease. HIDA scan with no significant gallbladder emptying, ejection fraction 0%. CT scan of the abdomen and pelvis with nonobstructive kidney stone disease, bilateral renal atrophy, spondylosis of lumbar spine. Chest x-ray was stable. BRIEF HISTORY: Please see the H and P that was done by hospitalist. In brief, he is a 74-year- old white male basically bedridden, living in snf, with chronic Werner catheter with a decreasing performance status, who came in with abdominal pain, nausea and vomiting. The patient was found to have acute kidney injury. He has chronic kidney failure. Dr. Villarreal was consulted. He has UTI, initially was given ceftriaxone. Urine cultures grew E. coli 50,000 to 60,000. Werner was placed. Despite, the patient continues to have abdominal pain. Further workup revealed gallstone disease along with acalculous cholecystitis. Dr. Ca was consulted. He performed a laparoscopic cholecystectomy. Postoperative course was complicated by abdominal pain and constipation. He was given Relistor and MiraLAX and Fleet enema with massive bowel movements. The patient is tolerating very well. He came back to baseline. He was sent back to rehab in a stable condition. DIAGNOSTIC DATA: White cell count is 8, hematocrit 27.8, platelets 189. Sodium 139, potassium 5.0, BUN is 42, creatinine 2.4, glucose 134, albumin 2.9. Blood cultures were negative. DISCHARGE INSTRUCTIONS: Pneumococcal 13 vaccine was given 2017, initiated vaccination protocol prior to the discharge. Allopurinol 100 mg daily, Synthroid 175 daily, Lasix discontinued, Protonix 40 daily, senna 1 capsule daily, Cymbalta 30 daily, [place] 5 q.6 as needed, Flomax stopped, Zanaflex 4 mg q.6, Ambien 10 as needed, Proscar 5 mg daily, MiraLAX 17 g daily. Care of bladder and bowels. Change the Werner catheter once a month. cc: Mike Dudley MD
[2019-08-04 12:27] VITALS: BP 128/57
--- NOTE | 2019-08-04 12:42 | GENERAL SURGERY PROGRESS NOTE ---
DATE: 08/04/2019 SUBJECTIVE: The patient seems to be doing okay. He is having bowel movements. He seems to be tolerating his diet. At this point, we awaiting transfer to rehab facility. cc: MD Mike Lucio MD
[2019-08-04] MEDS ORDERED: FLU VACCINE IM ONE (13:53)
== END 2019-08-04 16:30 | DRG 418 ==
LOC: SUPCPDRO → EDBD 16:59 → ED 16:59 → EDUNIT# 16:59 → SUATTDRO 07-20 01:40 → EDIPHOLD 07-20 01:40 → ICU 07-20 14:20 → 1N 07-21 17:46
PROVIDERS: ADMIT Internal Medicine; ATTEND Internal Medicine

== ENCOUNTER 2019-09-19 18:42 | Inpatient (IN) ==
--- NOTE | 2019-09-19 18:53 | PROVIDER DOCUMENTATION ---
HPI-Male Problem - General Chief Complaint: Male Stated Complaint: MALE Time Seen by Provider: 09/19/19 18:45 Source: patient, EMS Allergies/Adverse Reactions: Patient Allergies Allergy/AdvReac Type Severity Reaction Status Date / Time adhesive tape Allergy RASH Verified 09/19/19 20:17 levofloxacin [From Levaquin] Allergy ITCHING Verified 09/19/19 20:17 Home Medications: Home Medication List Medication Instructions Recorded Confirmed Last Taken Type Allopurinol [Zyloprim] 100 mg PO QAM 08/18/17 09/19/19 03/31/18 History Levothyroxine [Synthroid] 175 microgm PO QAM 03/22/18 09/19/19 04/01/18 06:00 History Duloxetine [Cymbalta] 30 mg PO DAILY 02/26/19 09/19/19 Unknown History Pantoprazole [Protonix] 40 mg PO DAILY 02/26/19 09/19/19 Unknown History Finasteride [Proscar] 5 mg PO DAILY 07/19/19 09/19/19 Unknown History Hydrocodone/Acetaminophen [[place] 1 ea PO Q6H PRN 07/19/19 09/19/19 Unknown History 5-325 Tablet] Tizanidine HCl [Zanaflex] 4 mg PO Q6H 07/19/19 09/19/19 Unknown History Zolpidem [Ambien] 10 mg PO QHS 07/19/19 09/19/19 Unknown History Polyethylene Glycol 3350 [Miralax] 17 gm PO DAILY #30 powd.pack 08/03/19 09/19/19 Unknown Rx Arginine/Glutamine/Calcium Bmb 1 packet PO DAILY 09/19/19 09/19/19 Unknown History [David Packet] Bisacodyl [Dulcolax] 10 mg ORDERED PRN PRN 09/19/19 09/19/19 Unknown History Guaifenesin 5 ml PO Q4H PRN PRN 09/19/19 09/19/19 Unknown History - History of Present Illness-Male Nature of Presenting Problem: 74 yr old M, hx of CKD, frequent UTIs, with chronic Werner Catheter, presents from [facility] with reports of lower abdominal pain and complaints of his "penis burning" since earlier this morning. He states symptoms started gradually and worsened over the course of the afternoon. He reports that he has significant pain and discomfort at the penis. Location of Complaint: reports: suprapubic Quality of Pain: reports: pressure, sharp Severity in ED: reports: moderate Onset/Duration: reports: 4-6 hours ago Timing: reports: still present Context/Activities at Onset: reports: none Urinary Symptoms: reports: other (burning) Review of Systems - Adult - REVIEW OF SYSTEMS - ADULT Constitutional: reports: no symptoms reported Eyes: reports: no symptoms reported Ears, Nose, Mouth & Throat: reports: no symptoms reported Cardiovascular: reports: no symptoms reported Respiratory: reports: no symptoms reported Gastrointestinal: reports: abdominal pain Genitourinary: reports: see HPI Musculoskeletal: reports: no symptoms reported Integumentary: reports: no symptoms reported Neurological: reports: no symptoms reported Psychiatric: reports: no symptoms reported Endocrine: reports: no symptoms reported Past History - Adult - PAST MEDICAL HISTORY-ADULT Review of Records: reports: Old Records Reviewed Major Childhood Illnesses: reports: denies history Cardiovascular: reports: A-Fib, CHF, HTN, hyperlipidemia Respiratory: reports: sleep apnea Gastrointestinal: reports: GERD Obstetrical/Gynecological: reports: denies history Genitourinary: reports: kidney disease Musculoskeletal: reports: arthritis (rhuematoid), chronic pain, other (gout) Neurological: reports: denies history Endocrine/Immune: reports: Diabetes, RA, thyroid disorder (hypo) Other Conditions: reports: denies history - PRIOR SURGERIES/PROCEDURES Surgical/Procedure History: reports: back/neck (back), other (laminectomy) - IMMUNIZATION STATUS Childhood Immunizations: See Nurse Assessment Flu Vaccine: See Nurse Assessment - FAMILY HISTORY Family History: reviewed, not pertinent - SOCIAL HISTORY Living Situation: care facility Physical Exam-General - PHYSICAL EXAM-ADULT Initial Vital Signs Reviewed: Yes - CONSTITUTIONAL General Appearance: alert, mild distress - EYES Eyes: PERRL/EOMI - HEAD, EARS, NOSE, MOUTH & THROAT HENMT: normocephalic/atraumatic, moist mucous membranes - RESPIRATORY Respiratory: chest non-tender, lungs clear, normal breath sounds - CARDIOVASCULAR Cardiovascular: no gallop, no murmur, tachycardia - GASTROINTESTINAL (ABDOMEN) Abdominal Exam: normal bowel sounds, tenderness (lower abdomen) - GENITOURINARY Male Genitalia: other (Werner in place, thick, whitish fluid noted within the catheter and at the site of entry into the penis - the genitalia itself is swollen, red, skin has to be lifted to reveal the penile head) - SKIN Integumentary: warm/dry - PSYCHIATRIC Psych/Mental Status: normal mood/affect, oriented x 3 Progress - PLAN OF CARE/RESULTS Progress/Plan/Lab Results: Vital Signs - 8 hr 09/19/19 18:53 Temperature 97.6 F Pulse Rate 96 H Respiratory Rate 18 Blood Pressure 168/109 O2 Sat by Pulse Oximetry 97 09/19/19 19:15 Gram Stain - Final Penis Laboratory Results - last 24 hr 09/19/19 09/19/19 09/19/19 19:30 19:30 19:35 WBC 9.55 RBC 3.99 L Hgb 13.0 L Hct 40.4 L MCV 101.3 H MCH 32.6 H MCHC 32.2 L RDW Std Deviation 13.9 Plt Count 219 MPV 10.1 Neut % (Auto) 71.0 Lymph % (Auto) 16.2 L [place] % (Auto) 7.3 Eos % (Auto) 5.3 Baso % (Auto) 0.2 Neut # (Auto) 6.77 H Lymph # (Auto) 1.55 [place] # (Auto) 0.70 H Eos # (Auto) 0.51 Baso # (Auto) 0.02 Sodium 137 Potassium 4.8 Chloride 101 Carbon Dioxide 21 L Anion Gap 15 BUN 49 H Creatinine 2.6 H Estimated GFR/1.73 m2 24 BUN/Creatinine Ratio 19 Glucose 120 H Calculated Osmolality 288 Calcium 9.6 Total Bilirubin 0.40 AST 19 ALT 12 Alkaline Phosphatase 79 Total Protein 7.6 Albumin 4.2 Globulin 3.4 Albumin/Globulin Ratio 1.2 Urine Source CATH Urine Color ORANGE Urine Turbidity TURBID Urine pH 6.5 Ur Specific [place] 1.008 Urine Protein 300 A Ur Glucose (Stick) NEGATIVE Ur Ketones (Stick) NEGATIVE Urine Blood MODERATE A Urine Nitrite NEGATIVE Urine Bilirubin NEGATIVE Urobilinogen Dipstick NORMAL Urine Leukocytes LARGE A Urine WBC (Auto) TNTC A Urine RBC (Auto) TNTC A U Epithel Cells (Auto) <10 Urine Bacteria (Auto) 4+ Urine Crystals Not Reportable Small Round Cells Not Reportable Urine Casts Not Reportable Urine Yeast-like Cells NONE SEEN Orders Category Date Time Status Saline Loc NOW Care 09/19/19 19:[address] ABDOMEN/PELVIS W/O CONTRAST [CT] Stat Exams 09/19/19 18:46 Completed US SCROTUM [US] Stat Exams 09/19/19 20:03 Completed CBC WITH ELECTRONIC DIFF [HEME] Stat Lab 09/19/19 19:30 Completed COMPREHENSIVE METABOLIC PANEL [CHEM] Stat Lab 09/19/19 19:30 Completed URINALYSIS W/POSS RFLX CULT [URINALYSIS] Stat Lab 09/19/19 19:35 Completed URINE CULTURE [RM] Routine Lab 09/19/19 19:35 Received URINE MANUAL MICROSCOPIC [URINALYSIS] Stat Lab 09/19/19 19:35 Completed WOUND CULTURE INC GRAM STAIN [RM] Routine Lab 09/19/19 19:15 Results 0.9% Sodium Chloride Inj [Ns] 1,000 ml Med 09/19/19 19:35 Discontinued IV 999 mls/hr Morphine Med 09/19/19 19:27 Discontinued 2 mg IV NOW ONE Result Diagrams: 09/19/19 19:30 09/19/19 19:30 - CT/MRI 1 CT Study: Abdomen, Pelvis Impression: See EMR Report ("EXAM: CT ABDOMEN/PELVIS W/O CONTRAST HISTORY: abdominal pain TECHNIQUE: CT abdomen and pelvis without oral or intravenous contrast COMPARISON: 07/19/2019. FINDINGS: Mild bronchiectasis in the right lower lobe with atelectasis and a tiny effusion. The gallbladder has been removed. No focal hepatic abnormality identified on this noncontrasted exam. No splenomegaly. No inflammation about the pancreas. Normal adrenal glands. There is scarring to the kidneys and nonobstructing renal stones. No hydronephrosis. No aortic aneurysm. Scoliosis with extensive postsurgical changes as well as degenerative changes. No bowel obstruction. Normal appendix. No abscess. Moderate stool throughout the colon. There is a Werner catheter within the urinary bladder. No enlarged prostate. Small pelvic nodes. IMPRESSION: 1.Constipation 2.Cholecystectomy 3.Right lower lobe atelectasis and bronchiectasis 4.Nonobstructing renal stones with renal scarring and atrophy") - ULTRASOUND (By Radiology) 1 US Study: Scrotum Impression: Abnormal (EXAM: US SCROTUM HISTORY: penile pain and swelling, scrotal swelling TECHNIQUE: Scrotal ultrasound COMPARISON: None. FINDINGS: There are small to moderate-sized bilateral hydroceles. Somewhat heterogeneous echotexture to the testicles. Symmetric testicular blood flow. Neither epididymis is enlarged. No penus mass or fluid collection. IMPRESSION: Small hydroceles with heterogeneous testicular echotexture may indicate orchitis. Electronically signed by Crispin Cobos 09/19/2019 8:45 PM 09/19/192044 Interpreting Physician: Crispin Cobos MD Dictated Date/Time: 09/19/192042 cc: Venancio Kirk MD; Darrion Stroud III, MD) - CHANGE OF SHIFT REPORT (ED Provider) 1 Report Given and Care Transferred to:: Dr. Navarro Time of Transfer: 20:00 Items Pending: Labs Departure - Departure Date of Disposition Decision: 09/19/19 Time of Disposition Decision: 21:42 (Admit) DIAGNOSIS: Orchitis, Intractable abdominal pain, Nephrolithiasis UTI (urinary tract infection) Qualifiers: Urinary tract infection type: catheter-associated UTI Indwelling urinary catheter type: indwelling urethral catheter Encounter type: subsequent encounter Qualified Code(s): T83.511D - Infection and inflammatory reaction due to indwelling urethral catheter, subsequent encounter; N39.0 - Urinary tract infection, site not specified Acute cystitis Qualifiers: Hematuria presence: with hematuria Qualified Code(s): N30.01 - Acute cystitis with hematuria Constipation Qualifiers: Constipation type: unspecified constipation type Qualified Code(s): K59.00 - Constipation, unspecified Disposition: ADMITTED INPATIENT 09 Certified Medical Emergency: Emergent Condition: Fair Referrals and Follow-Ups: Darrion Stroud III, MD [Primary Care Provider] - - Critical Care Note This patient required my direct & personal management of CC.: No Attestation - Physician/ ZARI Attestation Patient care was provided by Advanced Practice Provider:: No The physician spent face to face time with patient:: Yes Advanced Practice Provider documentation review:: Supervising physician onsite and consulted in the evaluation and care of this patient. The physician did have a face to face encounter with the patient.
--- NOTE | 2019-09-19 19:20 | Diag Imaging Result Doc PS360 ---
EXAM: CT ABDOMEN/PELVIS W/O CONTRAST HISTORY: abdominal pain TECHNIQUE: CT abdomen and pelvis without oral or intravenous contrast COMPARISON: 07/19/2019. FINDINGS: Mild bronchiectasis in the right lower lobe with atelectasis and a tiny effusion. The gallbladder has been removed. No focal hepatic abnormality identified on this noncontrasted exam. No splenomegaly. No inflammation about the pancreas. Normal adrenal glands. There is scarring to the kidneys and nonobstructing renal stones. No hydronephrosis. No aortic aneurysm. Scoliosis with extensive postsurgical changes as well as degenerative changes. No bowel obstruction. Normal appendix. No abscess. Moderate stool throughout the colon. There is a Werner catheter within the urinary bladder. No enlarged prostate. Small pelvic nodes. IMPRESSION: 1.Constipation 2.Cholecystectomy 3.Right lower lobe atelectasis and bronchiectasis 4.Nonobstructing renal stones with renal scarring and atrophy This exam was performed using automated exposure control, adjustment of mA or kV according to patient size, and/or use of iterative reconstruction technique. Electronically signed by Crispin Cobos 09/19/2019 7:17 PM
[2019-09-19] MEDS ORDERED: MORPHINE IV ONE (19:27)
[2019-09-19] MEDS ORDERED: NS 1,000 ML IV ONE (19:35)
[2019-09-19 19:45] LABS: URINE SOURCE CATH
[2019-09-19 19:50] LABS: BASO# 0.02 X1000 (0.0-0.2); BASO% 0.2 % (0.0-0.8); EOS# 0.51 X1000 (0.0-0.7); EOS% 5.3 % (0.0-10.0); HEMATOCRIT 40.4 % (42.0-52.0); LYMPH# 1.55 X1000 (1.2-3.4); LYMPH% 16.2 % (20.5-51.1); MCH 32.6 PG (27-31); MCHC 32.2 g/dL (33-37); MCV 101.3 FL (81-99); MONO% 7.3 % (1.7-9.3); MPV 10.1 FL (7.4-10.4); NEUT# 6.77 X1000 (1.4-6.5); PLT 219 X1000 (130-400); RBC 3.99 XMIL (4.7-6.1); RDW 13.9 % (11.5-14.5); WBC 9.55 X1000 (4.8-10.8)
[2019-09-19 19:50] LABS: BILIRUBIN URINE NEGATIVE (NEGATIVE); BLOOD URINE MODERATE (NEGATIVE); COLOR ORANGE; GLUCOSE URINE NEGATIVE (NEGATIVE); KETONE URINE NEGATIVE (NEGATIVE); LEUKOCYTES URINE LARGE (NEGATIVE); NITRITE URINE NEGATIVE (NEGATIVE); PH URINE 6.5; PROTEIN URINE 300 mg/dL (NEGATIVE); SP GRAVITY URINE 1.008; TURBIDITY URINE TURBID (CLEAR); UROBILINOGEN URINE NORMAL (NORMAL)
[2019-09-19 19:57] LABS: UR EPITHELIAL CELLS <10 /HPF (<10); URINE BACTERIA 4+ /HPF; URINE RBC TNTC /HPF (<10); URINE WBC TNTC /HPF (<10)
[2019-09-19 19:58] LABS: URINE YEAST NONE SEEN
[2019-09-19 20:24] LABS: ALB/GLOB RATIO 1.2; ALBUMIN 4.2 g/dL (3.5-5.0); CALCIUM 9.6 mg/dL (8.8-10.2); CREATININE 2.6 mg/dL (0.7-1.2); POTASSIUM 4.8 mmol/L (3.5-5.1); TOTAL BILIRUBIN 0.4 mg/dL (0.20-1.00); TOTAL PROTEIN 7.6 g/dL (6.3-8.3)
--- NOTE | 2019-09-19 20:48 | Diag Imaging Result Doc PS360 ---
EXAM: US SCROTUM HISTORY: penile pain and swelling, scrotal swelling TECHNIQUE: Scrotal ultrasound COMPARISON: None. FINDINGS: There are small to moderate-sized bilateral hydroceles. Somewhat heterogeneous echotexture to the testicles. Symmetric testicular blood flow. Neither epididymis is enlarged. No penus mass or fluid collection. IMPRESSION: Small hydroceles with heterogeneous testicular echotexture may indicate orchitis. Electronically signed by Crispin Cobos 09/19/2019 8:45 PM
[2019-09-19] MEDS ORDERED: MAXIPIME 2 GM/NS 2 GM/100 ML IVPB IV ONE (22:26)
[2019-09-19] MEDS: MORPHINE IV PRN (22:57)
[2019-09-19] MEDS ORDERED: DILAUDID IV ONE (23:31)
[2019-09-19] MEDS: MIRALAX PO SCH (23:41)
[2019-09-19] MEDS: AMBIEN PO SCH (23:41)
[2019-09-20] MEDS ORDERED: ZOFRAN IV PRN (00:29)
[2019-09-20] MEDS ORDERED: TYLENOL PO PRN (00:29)
[2019-09-20] MEDS ORDERED: CALMOSEPTINE OINTMENT TOP PRN (00:59)
[2019-09-20] MEDS: ZANAFLEX PO SCH ×4 (01:07→21:30)
[2019-09-20] MEDS: HEPARIN SUBQ SCH ×4 (01:07→21:30)
[2019-09-20] MEDS: MORPHINE IV PRN ×2 (03:30→07:08)
--- NOTE | 2019-09-20 05:39 | HISTORY AND PHYSICAL ---
CHIEF COMPLAINT: Kidney pain, burning with urination. HPI: Mr. Odell is a 74-year-old male who has a chronic indwelling catheter for the last [address] Suhas Dudley from what I understand outpatient. He is a resident at [facility], and for the most part bedbound. He has a past medical history that includes diabetes mellitus type 2, gout, rheumatoid arthritis, hypertension, hypothyroidism, and peripheral neuropathy, as well as chronic kidney disease stage IV, GERD, atrial fibrillation and osteoarthritis. He claims it is not related to having dysuria and burning in the shaft of his penis. As noted above, he does have a chronic indwelling catheter. Also noted lower back pain which he called a kidney pain, with also some swelling noted in his scrotum. An echo was completed in the emergency room, which showed a small hydrocele and probable orchitis as well as a urinary tract infection. He will be treated with Maxipime to cover E. coli and pseudomonas, and placed on the medical floor for further evaluation and treatment. PAST MEDICAL HISTORY: See HPI. PREVIOUS SURGICAL HISTORY: C-spine fusion, carpal tunnel, 2 lower back surgeries. FAMILY HISTORY: Diabetes, dementia, liver cancer in first degree relatives. SOCIAL HISTORY: He is . No alcohol, tobacco, or illicit drugs. Lives at [facility]. ALLERGIES: ADHESIVE TAPE AND LEVAQUIN. HOME MEDICATIONS: 1. Allopurinol 100 mg p.o. q.a.m. 2. [place] 1 pack p.o. daily. 3. Guaifenesin 5 mL p.o. q.4 p.r.n. 4. [place] 5 q.6 p.r.n. 5. Dulcolax 10 mg p.o. p.r.n. 6. Cymbalta 30 mg p.o. daily. 7. Finasteride 5 mg p.o. daily. 8. Levothyroxine 175 mcg p.o. daily. 9. Protonix 40 mg p.o. daily. 10. Miralax 17 grams daily. 11. Zanaflex 4 mg p.o. q.6. Ambien 10 mg p.o. at bedtime. REVIEW OF SYSTEMS: A 14-point review of systems is conducted with the patient. Pertinent positives listed above in the HPI. All other systems reviewed and found to be negative. PHYSICAL EXAMINATION: VITAL SIGNS: Temperature 97.6, pulse 96, respirations 18, blood pressure 168/109, oxygen saturation 97% on room air. GENERAL: A pleasant 74-year-old lying in the ER stretcher. He is alert and oriented x3. He is in no acute distress. HEENT: Head is atraumatic, normocephalic. Pupils equal, round, react to light. Extraocular eye movements intact. Sclera is anicteric. Conjunctiva is pale. Oral mucosa is moist. NECK: Supple. No JVD. No thyromegaly. Trachea is midline. No cervical lymphadenopathy. CARDIAC: S1, S2 appreciated. No murmurs, gallops, rubs. LUNGS: Clear to auscultation bilaterally. No rhonchi, wheezes, rales. Symmetric rise and fall respirations. ABDOMEN: Soft, nondistended. Tender in the suprapubic area. Bowel sounds present all 4 quadrants. Normoactive. No pulsatile mass or organomegaly. EXTREMITIES: No clubbing, cyanosis or edema. 1+ pedal pulses bilaterally. GENITOURINARY: Werner catheter is in place. Penile swelling as well as scrotal edema noted. NEUROLOGICAL: Alert and oriented x3. Cranial nerves 2-12 appear to be grossly intact. LABORATORY DATA: WBC 9.55, hemoglobin 13, hematocrit 40.4, platelet count 219,000. Sodium 137, potassium 4.8, chloride 101, carbon dioxide 21, BUN 49, creatinine 2.6, glucose 120. Urine leuk esterase positive, too numerous to count WBCs, 4+ bacteria. Positive for hematuria. ASSESSMENT: 1. Urinary tract infection. 2. Orchitis. 3. Hypertension. 4. Abdominal and low back pain secondary to urinary tract infection and orchitis. 5. Hypothyroidism. PLAN: Admit patient to the medical floor. Fingerstick blood sugar with sliding scale insulin. Check a hemoglobin A1c. Continue Synthroid. Check TSH. Continue home antihypertensives morphine 2 mg IV q.3h. as needed. Patient also appeared to be constipated. Will increase his Miralax to twice a day. Continue suppositories. Will treat the patient with cefepime to cover pseudomonas as well as E. Coli. Waiting on urine cultures and blood cultures. Defer further evaluation and treatment to his primary care provider, Dr. Suhas Dudley, tomorrow morning. Further recommendations per clinical course. Dictated by TARA Garza for Dev Zambrano MD cc: TARA Garza MD Jagan Reddy, MD
[2019-09-20] MEDS: HUMALOG SUBQ SCH ×4 (06:59→21:33)
[2019-09-20 08:18] LABS: BASO# 0.03 X1000 (0.0-0.2); BASO% 0.3 % (0.0-0.8); EOS# 0.41 X1000 (0.0-0.7); EOS% 3.6 % (0.0-10.0); HEMATOCRIT 43.5 % (42.0-52.0); HEMOGLOBIN 13.9 g/dL (14.0-18.0); IMM GRAN# 0.02 X1000 (0.0-0.04); IMM GRAN% 0.2 % (0.0-0.5); LYMPH% 20.2 % (20.5-51.1); MCV 100.2 FL (81-99); MONO# 0.84 X1000 (0.11-0.59); MONO% 7.4 % (1.7-9.3); MPV 10.4 FL (7.4-10.4); NEUT# 7.79 X1000 (1.4-6.5); NEUT% 68.3 % (42.2-75.2); PLT 226 X1000 (130-400); RBC 4.34 XMIL (4.7-6.1); RDW 13.9 % (11.5-14.5); WBC 11.39 X1000 (4.8-10.8)
[2019-09-20] MEDS: MAXIPIME 1 GM in NS 50 ML IV SCH ×2 (08:22→21:30)
[2019-09-20] MEDS: MIRALAX PO SCH ×3 (08:22→21:30)
[2019-09-20] MEDS: SYNTHROID PO SCH (08:22)
[2019-09-20] MEDS: PROSCAR PO SCH (08:22)
[2019-09-20] MEDS: CYMBALTA PO SCH (08:22)
[2019-09-20] MEDS: PROTONIX PO SCH (08:22)
[2019-09-20 08:29] LABS: CREATININE 2.5 mg/dL (0.7-1.2); POTASSIUM 4.5 mmol/L (3.5-5.1)
[2019-09-20] MEDS: ZYLOPRIM PO SCH (10:29)
[2019-09-20] MEDS: PRIMAXIN 1,000 MG in NS 250 ML IV SCH (10:29)
[2019-09-20] MEDS: NORCO-5 PO PRN ×2 (12:01→21:31)
--- NOTE | 2019-09-20 21:28 | PROGRESS NOTE ---
DATE: 09/20/2019 SUBJECTIVE: This is a 74-year-old white gentleman admitted to the hospital yesterday with abdominal pain and UTI with orchitis. He has been running fever with an elevated white cell count. I did review the H and P. The patient has been bedridden. He just came from the senior care, and his Werner has been changed. PAST MEDICAL HISTORY: Reviewed. PAST SURGICAL HISTORY: Reviewed. MEDICINES: Reviewed. ALLERGIES: Levaquin and adhesive tape. OBJECTIVE: Vital Signs: Temperature is 98, pulse 53, vitals are stable, 99% on room air. General: Heavy set. HEENT: Within normal limits with [place] on both eyes. Neck: Supple. Chest: Bilateral air entry. Cardiovascular: Heart sounds are regular. Belly: Soft, obese. : He has a Werner that was replaced. Extremities: Dependent edema. Neurologic: No obvious focal deficits. LABORATORY DATA: White cell count 11, hematocrit 43, platelets 226. MCV is high. Sodium 139, potassium 4.5, chloride 104, BUN 45, creatinine 2.5, glucose 111. Urine culture: Gram-negative rods. Scrotal ultrasound: Small hydrocele. CT scan of the abdomen and pelvis: Constipation, cholecystectomy, nonobstructive renal stones with atrophy. ASSESSMENT AND PLAN: 1. Constipation due to narcotics. Continue on MiraLAX. 2. Hypothyroidism, on Synthroid. 3. Extended-spectrum beta lactamase Escherichia coli with orchitis. Discontinue cefepime, change to imipenem. 4. Benign prostatic hypertrophy, on Proscar. 5. Chronic kidney disease, stable. 6. Gout, on Zyloprim. 7. Chronic insomnia, on Ambien. 8. Deep venous thrombosis prophylaxis with DVT prophylaxis with subcutaneous heparin twice a day. 9. Chronic pain and depression, on Cymbalta. 10. Will follow up. LEVEL OF DOCUMENTATION: Thirty-five minutes. cc: Mike Dudley MD [facility]
[2019-09-20] MEDS: AMBIEN PO SCH (22:34)
[2019-09-21] MEDS: ZANAFLEX PO SCH ×4 (03:23→21:30)
[2019-09-21] MEDS: HUMALOG SUBQ SCH ×4 (06:55→21:28)
[2019-09-21] MEDS: SYNTHROID PO SCH (07:37)
[2019-09-21] MEDS: ZYLOPRIM PO SCH (08:57)
[2019-09-21] MEDS: CYMBALTA PO SCH (08:57)
[2019-09-21] MEDS: HEPARIN SUBQ SCH ×2 (08:57→21:30)
[2019-09-21] MEDS: PROTONIX PO SCH (08:57)
[2019-09-21] MEDS: MIRALAX PO SCH ×3 (08:58→21:30)
[2019-09-21] MEDS: PROSCAR PO SCH (08:58)
[2019-09-21] MEDS: MAXIPIME 1 GM in NS 50 ML IV SCH ×2 (09:00→21:28)
[2019-09-21] MEDS: PRIMAXIN 1,000 MG in NS 250 ML IV SCH (09:45)
[2019-09-21] MEDS: NORCO-5 PO PRN (13:44)
[2019-09-21] MEDS: AMBIEN PO SCH (21:30)
--- NOTE | 2019-09-21 21:30 | PROGRESS NOTE ---
DATE: 09/21/2019 SUBJECTIVE: The patient is feeling a little better. No complaints. OBJECTIVE: On examination temp is 97 degrees, pulse is 56, blood pressure is 113/70, bedridden. Chest is clear. Heart sounds are regular. Belly is soft, nontender. Good bowel sounds. Werner was placed. Urine cultures 09/19/2019. E. coli blood cultures were negative. He had ESBL positive. ASSESSMENT AND PLAN: 1. Chronic renal failure, stable. 2. Deconditioning, stable. 3. Recurrent urinary tract infection due to ESBL Escherichia coli. Continue IV Invanz and constipation MiraLAX. 4. Deep venous thrombosis prophylaxis with heparin. Continue present treatment until Wednesday. LEVEL OF DOCUMENTATION: 25 minutes. cc: Mike Dudley MD
[2019-09-22] MEDS: ZANAFLEX PO SCH ×4 (04:06→21:59)
[2019-09-22] MEDS: SYNTHROID PO SCH (06:51)
[2019-09-22] MEDS: HUMALOG SUBQ SCH ×4 (06:52→21:52)
[2019-09-22] MEDS: NORCO-5 PO PRN ×2 (08:45→16:48)
[2019-09-22] MEDS: MIRALAX PO SCH ×3 (09:55→22:00)
[2019-09-22] MEDS: PROTONIX PO SCH (09:55)
[2019-09-22] MEDS: PROSCAR PO SCH (09:55)
[2019-09-22] MEDS: CYMBALTA PO SCH (09:56)
[2019-09-22] MEDS: HEPARIN SUBQ SCH ×2 (09:56→21:59)
[2019-09-22] MEDS: PRIMAXIN 1,000 MG in NS 250 ML IV SCH (10:26)
[2019-09-22] MEDS: ZYLOPRIM PO SCH (10:44)
[2019-09-22] MEDS: MAXIPIME 1 GM in NS 50 ML IV SCH (11:27)
--- NOTE | 2019-09-22 21:25 | PROGRESS NOTE ---
DATE: 09/22/2019 SUBJECTIVE: The patient is a little better and ESBL Escherichia coli isolated, and complains of a little bit of pain. Werner was placed. OBJECTIVE: Temperature is 97 degrees, pulse 67. Vitals are stable. Patient basically bedridden because of the significant back pain. No labs were done. ASSESSMENT: 1. Urinary tract infection, symptomatic, due to chronic indwelling catheter. 2. Benign prostatic hypertrophy. 3. Chronic kidney disease. 4. Chronic back pain. 5. Gout. 6. Constipation. PLAN OF CARE: 1. Intravenous imipenem. 2. Deep venous thrombosis and gastrointestinal prophylaxis. 3. I am going to discontinue the cefepime. 4. Continue on MiraLax. 5. Hopefully will discharge him back on Wednesday for halfway. cc: Mike Dudley MD
[2019-09-22] MEDS: AMBIEN PO SCH (21:59)
[2019-09-22] MEDS: DULCOLAX PR PRN (22:04)
[2019-09-23] MEDS: SYNTHROID PO SCH ×2 (04:31→06:41)
[2019-09-23] MEDS: NORCO-5 PO PRN ×3 (04:31→17:41)
[2019-09-23] MEDS: ZANAFLEX PO SCH ×4 (04:32→21:58)
[2019-09-23] MEDS: HUMALOG SUBQ SCH ×5 (07:01→22:53)
[2019-09-23] MEDS: ZYLOPRIM PO SCH (09:57)
[2019-09-23] MEDS: CYMBALTA PO SCH (09:57)
[2019-09-23] MEDS: PROTONIX PO SCH (09:58)
[2019-09-23] MEDS: PRIMAXIN 1,000 MG in NS 250 ML IV SCH (09:58)
[2019-09-23] MEDS: PROSCAR PO SCH (09:58)
[2019-09-23] MEDS: MIRALAX PO SCH ×3 (09:58→21:58)
[2019-09-23] MEDS: HEPARIN SUBQ SCH ×2 (09:59→21:58)
--- NOTE | 2019-09-23 10:00 | Diag Imaging Result Doc PS360 ---
EXAM: KUB ABDOMEN HISTORY: Constipation TECHNIQUE: Single view COMPARISON: 07/31/2019 FINDINGS: There are rods in the lumbar spine. No bowel obstruction. There is at least mild stool throughout the colon. No organomegaly. IMPRESSION: Mild constipation. This is not as pronounced as on the prior study. Electronically signed by Crispin Cobos 09/23/2019 9:58 AM
[2019-09-23] MEDS: AMBIEN PO SCH (21:58)
--- NOTE | 2019-09-24 01:37 | PROGRESS NOTE ---
DATE: 09/23/2019 SUBJECTIVE: The patient had constipation last night. He was given MiraLAX and Dulcolax, refused his enema. Otherwise no other complaints. OBJECTIVE: Temperature is 97.8 degrees, pulse 55, blood pressure is 140/61. HEENT exam within normal limits. Chest is clear. Heart sounds very distant. Belly is soft, less distended. Werner was placed. INVESTIGATIONS: None reported. KUB: Improvement of constipation. Microbiology: He has wound culture, Pseudomonas aeruginosa, which is sensitive to imipenem, diphtheroids. Urine cultures: Escherichia coli, ESBL positive. ASSESSMENT AND PLAN: 1. Constipation, resolving. 2. Urinary tract infection. Continue intravenous imipenem. 3. Deep venous thrombosis and gastrointestinal prophylaxis. 4. Continue present treatment. 5. Gout is stable. Level of documentation 25 minutes. cc: Mike Dudley MD
[2019-09-24] MEDS: SYNTHROID PO SCH ×2 (04:30→06:02)
[2019-09-24] MEDS: ZANAFLEX PO SCH ×4 (04:30→21:30)
[2019-09-24] MEDS: NORCO-5 PO PRN ×3 (06:38→21:29)
[2019-09-24] MEDS: HUMALOG SUBQ SCH ×3 (06:45→17:26)
[2019-09-24] MEDS: MIRALAX PO SCH ×3 (08:49→21:30)
[2019-09-24] MEDS: PROSCAR PO SCH (08:51)
[2019-09-24] MEDS: HEPARIN SUBQ SCH ×2 (08:51→21:29)
[2019-09-24] MEDS: CYMBALTA PO SCH (08:51)
[2019-09-24] MEDS: PROTONIX PO SCH (08:51)
[2019-09-24] MEDS: ZYLOPRIM PO SCH (08:52)
[2019-09-24] MEDS: PRIMAXIN 1,000 MG in NS 250 ML IV SCH (09:06)
--- NOTE | 2019-09-24 16:24 | PROGRESS NOTE ---
DATE: 09/24/2019 SUBJECTIVE: The patient is better. No complaints. Constipation is better. OBJECTIVE: Vital signs: Temp is 97 degrees, pulse 53. Vitals are stable. HEENT: Exam within normal limits. Chest: Clear. Heart: Heart sounds are regular. Abdomen: Belly is soft, obese, nontender. INVESTIGATIONS: None reported. ASSESSMENT AND PLAN: 1. Constipation, improving. 2. Urinary tract infection due to Pseudomonas. On IV imipenem. 3. Deep vein thrombosis and gastrointestinal prophylaxis. 4. Goiter, stable. 5. Gout, stable. Continue present treatment. No significant changes. LEVEL OF DOCUMENTATION: 15 minutes. cc: Mike Dudley MD
[2019-09-24] MEDS: AMBIEN PO SCH (21:30)
[2019-09-25] MEDS: HUMALOG SUBQ SCH ×5 (00:17→20:45)
[2019-09-25] MEDS: NORCO-5 PO PRN ×3 (03:30→20:43)
[2019-09-25] MEDS: SYNTHROID PO SCH ×2 (03:31→06:40)
[2019-09-25] MEDS: ZANAFLEX PO SCH ×4 (03:31→20:44)
[2019-09-25] MEDS: PROSCAR PO SCH (08:37)
[2019-09-25] MEDS: CYMBALTA PO SCH (08:37)
[2019-09-25] MEDS: PROTONIX PO SCH (08:37)
[2019-09-25] MEDS: ZYLOPRIM PO SCH (08:37)
[2019-09-25] MEDS: PRIMAXIN 1,000 MG in NS 250 ML IV SCH (08:39)
[2019-09-25] MEDS: MIRALAX PO SCH ×2 (08:39→20:46)
[2019-09-25] MEDS: HEPARIN SUBQ SCH ×2 (08:40→20:43)
[2019-09-25] MEDS: AMBIEN PO SCH (20:44)
--- NOTE | 2019-09-25 22:05 | PROGRESS NOTE ---
DATE: 09/25/2019 SUBJECTIVE: The patient is feeling abdominal pain, bloating. OBJECTIVE: Vital signs: Temperature is 98 degrees. Vitals are stable. HEENT: Within normal limits. Neck: Supple. No lymphadenopathy. Chest: Bilateral air entry. Heart: Sounds are regular. Abdomen: Belly is soft, nontender. ASSESSMENT AND PLAN: 1. Constipation is better. Continue on stool softeners. 2. Urinary tract infection due to Pseudomonas. IV imipenem. 3. Deep vein thrombosis and gastrointestinal prophylaxis as per orders. 4. Goiter stable. 5. Gout is stable. If he is stable, will discharge back to the rehab in couple of days. We will get a social service assistant consult. Continue present treatment. LEVEL OF DOCUMENTATION: 35 minutes. cc: Mike Dudley MD
[2019-09-26] MEDS: ZANAFLEX PO SCH ×4 (03:13→21:37)
[2019-09-26] MEDS: NORCO-5 PO PRN ×3 (05:18→17:33)
[2019-09-26] MEDS: HUMALOG SUBQ SCH ×4 (08:04→21:39)
[2019-09-26] MEDS: SYNTHROID PO SCH (08:10)
[2019-09-26] MEDS: HEPARIN SUBQ SCH ×2 (09:46→21:38)
[2019-09-26] MEDS: PROTONIX PO SCH (09:46)
[2019-09-26] MEDS: PROSCAR PO SCH (09:46)
[2019-09-26] MEDS: ZYLOPRIM PO SCH (09:46)
[2019-09-26] MEDS: CYMBALTA PO SCH (09:46)
[2019-09-26] MEDS: PRIMAXIN 1,000 MG in NS 250 ML IV SCH (09:47)
[2019-09-26] MEDS: MIRALAX PO SCH ×2 (09:47→21:37)
[2019-09-26] MEDS: AMBIEN PO SCH (21:38)
--- NOTE | 2019-09-26 22:41 | PROGRESS NOTE ---
DATE: 09/26/2019 SUBJECTIVE: The patient is little, complaining of spasms, abdominal pain. PHYSICAL EXAMINATION: Vital signs: Temperature is 97 degrees. Vitals are stable. HEENT: Within normal limits. Neck: Supple. Chest: Clear to auscultation. Heart: Sounds are regular. Abdomen: Belly is soft, nontender. No obvious deficits. INVESTIGATIONS: Blood cultures negative. ASSESSMENT AND PLAN: 1. Extended spectrum beta-lactamase Escherichia coli. Continue IV Invanz. 2. Hypothyroidism, on Synthroid. 3. Chronic insomnia, on Ambien. 4. Chronic pain. 5. Depression, on Cymbalta. 6. Deep vein thrombosis prophylaxis. Heparin 5000 subcutaneously b.i.d. 7. Gastrointestinal prophylaxis with IV Protonix. 8. Constipation. Continue on MiraLAX. 9. Will continue the tizanidine for black spasms. He is not ready to be discharged. Hopefully, we can get out by end of this week. TIME SPENT: Level of documentation 25 minutes. cc: Mike Dudley MD
[2019-09-27] MEDS: NORCO-5 PO PRN ×5 (00:12→23:28)
[2019-09-27] MEDS: ZANAFLEX PO SCH ×4 (02:38→23:29)
[2019-09-27] MEDS: SYNTHROID PO SCH (06:54)
[2019-09-27] MEDS: HEPARIN SUBQ SCH ×2 (08:34→23:28)
[2019-09-27] MEDS: HUMALOG SUBQ SCH ×4 (08:35→23:42)
[2019-09-27] MEDS: PROTONIX PO SCH (08:36)
[2019-09-27] MEDS: ZYLOPRIM PO SCH (08:36)
[2019-09-27] MEDS: CYMBALTA PO SCH (08:36)
[2019-09-27] MEDS: MIRALAX PO SCH ×2 (08:37→23:28)
[2019-09-27] MEDS: PROSCAR PO SCH (08:37)
[2019-09-27] MEDS: PRIMAXIN 1,000 MG in NS 250 ML IV SCH (08:50)
--- NOTE | 2019-09-27 21:58 | PROGRESS NOTE ---
DATE: 09/27/2019 SUBJECTIVE: The patient is slowly improving. REVIEW OF SYSTEMS: None reported. OBJECTIVE: Vital Signs: Stable. HEENT: No change. ASSESSMENT: 1. Extended-spectrum beta lactamase Escherichia coli. 2. Deconditioning. 3. Gout. 4. Hypothyroidism. 5. Chronic back pain, stable. PLAN: 1. Continue intravenous antibiotics and based on the urine cultures, we will slowly transition into Macrobid. 2. We will ask the [facility] [employer] for discharge to the rehabilitation and continue present treatment. LEVEL OF DOCUMENTATION: 25 minutes. cc: Mike Dudley MD
[2019-09-27] MEDS: AMBIEN PO SCH (23:28)
[2019-09-28] MEDS: ZANAFLEX PO SCH ×6 (01:14→21:24)
[2019-09-28] MEDS: SYNTHROID PO SCH (06:09)
[2019-09-28] MEDS: HUMALOG SUBQ SCH ×4 (07:40→21:25)
[2019-09-28] MEDS: NORCO-5 PO PRN ×2 (08:22→16:22)
[2019-09-28] MEDS: MIRALAX PO SCH ×2 (09:53→21:24)
[2019-09-28] MEDS: PROTONIX PO SCH (09:53)
[2019-09-28] MEDS: CYMBALTA PO SCH (09:53)
[2019-09-28] MEDS: ZYLOPRIM PO SCH (09:53)
[2019-09-28] MEDS: HEPARIN SUBQ SCH ×2 (09:53→21:24)
[2019-09-28] MEDS: PROSCAR PO SCH (09:53)
[2019-09-28] MEDS: PRIMAXIN 1,000 MG in NS 250 ML IV SCH (10:22)
[2019-09-28] MEDS ORDERED: MORPHINE IV ONE (16:52)
[2019-09-28] MEDS: AMBIEN PO SCH (21:23)
--- NOTE | 2019-09-29 00:15 | PROGRESS NOTE ---
DATE: 09/28/2019 SUBJECTIVE: The patient complains of pain. [facility] and added morphine. OBJECTIVE: Vital signs: Temp is 97 degrees. Vitals are stable. HEENT: Within normal limits. Chest: Clear. Cardiovascular: Heart sounds are regular. Abdomen: Belly is soft, nontender. Neurologic: No neurological deficits. ASSESSMENT AND PLAN: 1. Chronic back pain, deconditioning. Continue on Zanaflex, Ruth. 2. Constipation is better. 3. Urinary tract infection, on IV Invanz. Continue present treatment. We will discharge in the morning with rehab level of documentation. cc: Mkie Dudley MD
[2019-09-29] MEDS: ZANAFLEX PO SCH ×2 (02:55→09:57)
[2019-09-29] MEDS: NORCO-5 PO PRN ×2 (05:22→12:41)
[2019-09-29] MEDS: HUMALOG SUBQ SCH ×2 (08:06→12:07)
[2019-09-29] MEDS: SYNTHROID PO SCH (08:09)
--- NOTE | 2019-09-29 08:32 | DISCHARGE SUMMARY ---
ADMISSION DATE: 09/19/2019 DISCHARGE DATE: 09/29/2019 DISCHARGING DIAGNOSIS: Urinary tract infection with orchitis. SECONDARY DIAGNOSES: 1. Constipation. 2. Chronic renal failure. 3. Benign prostatic hypertrophy. 4. Paroxysmal atrial fibrillation. 5. Hypertension. 6. Gout. 7. Acid reflux disease. 8. Hypothyroidism. 9. Type 2 diabetes, diet controlled. 10. Chronic constipation due to chronic pain therapy. 11. Chronic back pain with multiple surgeries. 12. Deconditioning. BRIEF HISTORY: Please see the history and physical that was done by Hospitalist. In brief, he is a 74-year-old white male basically bedridden, living in a fci with chronic Werner, decreased performance status due to chronic back pain and not able to do any activities of daily living. He was discharged last admission after gallbladder surgery. The patient was brought in with abdominal pain, UTI symptoms, admitted by Hospitalist. In fact, urine culture showed E coli ESBL positive. He has a lot of pain in the testicles due to orchitis. As a result during this hospitalization, patient was given IV Invanz 1 g daily. He was constipated, given MiraLAX and Dulcolax with good results. Urine is also positive for Macrobid. He needs to change the Werner once a month. LABORATORY DATA: CBC: White cell count 9.5, hematocrit 40, platelets 219,000. Sodium 139, potassium 4.5, chloride 104, BUN 45, creatinine 2.5. DISCHARGE DISPOSITION/INSTRUCTIONS: The patient just came back to the baseline and discharged home with the following instructions. Zyloprim 100 in the morning, Synthroid 175 mcg every morning, Protonix 40 daily, Cymbalta 30 daily, [place] 5 q.6 as needed, Zanaflex 4 mg q.6, Ambien 10 at bedtime, Proscar 5 mg daily, MiraLAX 17 g p.o. b.i.d., Dulcolax 10 at bedtime, Macrobid 50 p.o. b.i.d. for 10 days. Care of the skin, bladder, and bowels and continue to monitor his progress in the fci. cc: Mike Dudley MD
[2019-09-29] MEDS: DULCOLAX PR PRN (09:57)
[2019-09-29] MEDS: ZYLOPRIM PO SCH (09:57)
[2019-09-29] MEDS: PROSCAR PO SCH (09:57)
[2019-09-29] MEDS: PROTONIX PO SCH (09:57)
[2019-09-29] MEDS: HEPARIN SUBQ SCH (09:57)
[2019-09-29] MEDS: PRIMAXIN 1,000 MG in NS 250 ML IV SCH (09:57)
[2019-09-29] MEDS: CYMBALTA PO SCH (09:57)
[2019-09-29] MEDS: MIRALAX PO SCH (09:58)
[2019-09-29 12:02] VITALS: BP 160/87
== END 2019-09-29 13:38 | DRG 699 ==
LOC: SUPCPDRO → ED 18:42 → SUPCPDRO 23:57 → SUATTDRO 23:57 → 4N 23:57
PROVIDERS: ADMIT Internal Medicine; ATTEND Internal Medicine

== ENCOUNTER 2019-10-14 14:06 | Inpatient (IN) ==
[2019-10-14] MEDS ORDERED: NS 1,000 ML IV ONE ×2 (14:39→17:27)
[2019-10-14] MEDS ORDERED: NS 1,000 ML ONE (14:42)
--- NOTE | 2019-10-14 14:46 | PROVIDER DOCUMENTATION ---
HPI-Neurological Disorder - General Chief Complaint: Altered Mental Status Stated Complaint: LETHARGY Time Seen by Provider: 10/14/19 14:06 Source: patient, other ([facility]) Allergies/Adverse Reactions: Patient Allergies Allergy/AdvReac Type Severity Reaction Status Date / Time adhesive tape Allergy RASH Verified 09/19/19 20:17 levofloxacin [From Levaquin] Allergy ITCHING Verified 09/19/19 20:17 Home Medications: Home Medication List Medication Instructions Recorded Confirmed Last Taken Type Allopurinol [Zyloprim] 100 mg PO QAM 08/18/17 10/14/19 03/31/18 History Levothyroxine [Synthroid] 175 microgm PO QAM 03/22/18 10/14/19 04/01/18 06:00 History Duloxetine [Cymbalta] 30 mg PO DAILY 02/26/19 10/14/19 Unknown History Pantoprazole [Protonix] 40 mg PO DAILY 02/26/19 10/14/19 Unknown History Finasteride [Proscar] 5 mg PO DAILY 07/19/19 10/14/19 Unknown History Hydrocodone/Acetaminophen [[place] 1 ea PO Q6H PRN 07/19/19 10/14/19 Unknown History 5-325 Tablet] Tizanidine HCl [Zanaflex] 4 mg PO Q6H 07/19/19 10/14/19 Unknown History Zolpidem [Ambien] 10 mg PO QHS 07/19/19 10/14/19 Unknown History Polyethylene Glycol 3350 [Miralax] 17 gm PO DAILY #30 powd.pack 08/03/19 10/14/19 Unknown Rx Arginine/Glutamine/Calcium Bmb 1 packet PO DAILY 09/19/19 10/14/19 Unknown History [David Packet] Bisacodyl [Dulcolax] 10 mg ORDERED PRN PRN 09/19/19 10/14/19 Unknown History Guaifenesin 5 ml PO Q4H PRN PRN 09/19/19 10/14/19 Unknown History - History of Present Illness-Neuro Nature of Presenting Problem: Patient is a 74 yo M [place] resident at [facility], who presents to the ED due to decreased alertness that was first noted this morning. Patient is AAOx3 but states that he is sleepy because he didn't sleep well last night 2/2 a headache which has now resolved, he also reports myalgias. His BS per EMS was 249, HR 49, and patient was also hypotensive. Patient is non-ambulatory at baseline. Severity: reports: moderate Onset/Duration: reports: abrupt Timing: reports: still present Context: denies: head injury Character of Altered Mental Status: reports: other (Lethargic) Any recent trauma/injury?: reports: none New weakness or altered sensation location:: reports: none Cognitive Baseline: alert, oriented x3 Gait Baseline: unable to walk Associated Symptoms: reports: muscle spasms, sleepy Similar Symptoms Previously?: Yes (SImilar muscle cramps with hyperkalemia in the past ) Recently seen or treated by another doctor?: No Review of Systems - Adult - REVIEW OF SYSTEMS - ADULT Constitutional: reports: fatique Eyes: reports: no symptoms reported Ears, Nose, Mouth & Throat: reports: no symptoms reported Cardiovascular: reports: no symptoms reported Respiratory: reports: no symptoms reported Gastrointestinal: reports: no symptoms reported Genitourinary: reports: no symptoms reported Musculoskeletal: reports: muscle aches Integumentary: reports: no symptoms reported Neurological: reports: see HPI Psychiatric: reports: no symptoms reported Endocrine: reports: no symptoms reported Hematologic/Lymphatic: reports: no symptoms reported Allergic/Immunologic: reports: no symptoms reported All Other Systems: Reviewed and Negative Past History - Adult - PAST MEDICAL HISTORY-ADULT Review of Records: reports: Old Records Reviewed, Nursing Assessment Review, Medications Reviewed, Social history reviewed & non-contributory. Major Childhood Illnesses: reports: denies history Cardiovascular: reports: A-Fib, CHF, HTN, hyperlipidemia Respiratory: reports: sleep apnea Gastrointestinal: reports: GERD Obstetrical/Gynecological: reports: denies history Genitourinary: reports: kidney disease Musculoskeletal: reports: arthritis (rhuematoid), chronic pain, other (gout) Neurological: reports: denies history Endocrine/Immune: reports: Diabetes, RA, thyroid disorder (hypo) Other Conditions: reports: denies history - PRIOR SURGERIES/PROCEDURES Surgical/Procedure History: reports: back/neck (back), other (laminectomy) - IMMUNIZATION STATUS Childhood Immunizations: See Nurse Assessment Flu Vaccine: See Nurse Assessment - FAMILY HISTORY Family History: reviewed, not pertinent Physical Exam- Neurological - Physical Exam-Neuro Initial Vital Signs Reviewed: Yes General Appearance: lethargic (Pale), other Eye Exam: bilateral eye: normal inspection HENMT: normocephalic/atraumatic, other (Dry mucous membranes) Head Injury: no evidence of injury Neck: non-tender, full range of motion Respiratory: chest non-tender, lungs clear Cardiovascular: normal peripheral pulses, bradycardia, other (+2 LE edema) Abdominal Exam: normal bowel sounds, non tender, soft Lymphatic: no adenopathy Extremity: other (LE contractures (patient is non-ambulatory)) 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 negative: abnormal speech Coordination/Gait: normal finger to nose Motor/Sensory: no motor deficit (In upper extremities), no sensory deficit Integumentary: pallor Psych/Mental Status: normal mood/affect, oriented x 3 Progress - PLAN OF CARE/RESULTS Progress/Plan/Lab Results: Vital Signs - 8 hr 10/14/19 17:30 10/14/19 18:00 Pulse Rate 51 L 49 L Respiratory Rate 15 14 Blood Pressure 135/78 138/77 O2 Sat by Pulse Oximetry 98 98 10/14/19 15:22 Influenza Screen - Final Nasopharyngeal Laboratory Results - last 24 hr 10/14/19 10/14/19 10/14/19 14:36 14:47 15:46 WBC Cancelled RBC Cancelled Hgb Cancelled Hct Cancelled MCV Cancelled MCH Cancelled MCHC Cancelled RDW Std Deviation Cancelled Plt Count Cancelled MPV Cancelled Immature Gran % (Auto) Cancelled Neut % (Auto) Cancelled Lymph % (Auto) Cancelled [place] % (Auto) Cancelled Eos % (Auto) Cancelled Baso % (Auto) Cancelled Immature Gran # (Auto) Cancelled Neut # (Auto) Cancelled Lymph # (Auto) Cancelled [place] # (Auto) Cancelled Eos # (Auto) Cancelled Baso # (Auto) Cancelled Corrected WBC (Man) Cancelled PT INR PTT (Actin FS) Sodium 136 Potassium 5.6 H Chloride 104 Carbon Dioxide 19 L Anion Gap 13 BUN 92 H Creatinine 3.7 H Estimated GFR/1.73 m2 16 BUN/Creatinine Ratio 25 Glucose 151 H POC Glucose 171 H D Calculated Osmolality 303 Calcium 9.2 Total Bilirubin 0.35 AST 10 ALT 6 L Alkaline Phosphatase 71 Creatine Kinase 29 Troponin T High Sens Mar-N-Sqrsrjxtvdy Pept Total Protein 5.7 L Albumin 3.6 Globulin 2.1 Albumin/Globulin Ratio 1.7 Plasma Lactate Urine Source Urine Color Urine Turbidity Urine pH Ur Specific [place] Urine Protein Ur Glucose (Stick) Ur Ketones (Stick) Urine Blood Urine Nitrite Urine Bilirubin Urobilinogen Dipstick Urine Leukocytes Urine WBC (Auto) Urine RBC (Auto) U Epithel Cells (Auto) Urine Bacteria (Auto) Urine Crystals Small Round Cells Urine Casts Urine Yeast-like Cells 10/14/19 10/14/19 10/14/19 15:46 15:46 15:46 WBC 5.94 RBC 3.45 L Hgb 11.0 L Hct 34.7 L MCV 100.6 H MCH 31.9 H MCHC 31.7 L RDW Std Deviation 14.2 Plt Count 192 MPV 10.6 H Immature Gran % (Auto) 0.0 Neut % (Auto) 67.5 Lymph % (Auto) 20.4 L [place] % (Auto) 4.9 Eos % (Auto) 6.9 Baso % (Auto) 0.3 Immature Gran # (Auto) 0.00 Neut # (Auto) 4.01 Lymph # (Auto) 1.21 [place] # (Auto) 0.29 Eos # (Auto) 0.41 Baso # (Auto) 0.02 Corrected WBC (Man) PT INR PTT (Actin FS) Sodium Potassium Chloride Carbon Dioxide Anion Gap BUN Creatinine Estimated GFR/1.73 m2 BUN/Creatinine Ratio Glucose POC Glucose Calculated Osmolality Calcium Total Bilirubin AST ALT Alkaline Phosphatase Creatine Kinase Troponin T High Sens 89 H Ced-H-Gnbognihrsg Pept > 77223 H Total Protein Albumin Globulin Albumin/Globulin Ratio Plasma Lactate Urine Source Urine Color Urine Turbidity Urine pH Ur Specific [place] Urine Protein Ur Glucose (Stick) Ur Ketones (Stick) Urine Blood Urine Nitrite Urine Bilirubin Urobilinogen Dipstick Urine Leukocytes Urine WBC (Auto) Urine RBC (Auto) U Epithel Cells (Auto) Urine Bacteria (Auto) Urine Crystals Small Round Cells Urine Casts Urine Yeast-like Cells 10/14/19 10/14/19 10/14/19 15:46 15:47 17:45 WBC RBC Hgb Hct MCV MCH MCHC RDW Std Deviation Plt Count MPV Immature Gran % (Auto) Neut % (Auto) Lymph % (Auto) [place] % (Auto) Eos % (Auto) Baso % (Auto) Immature Gran # (Auto) Neut # (Auto) Lymph # (Auto) [place] # (Auto) Eos # (Auto) Baso # (Auto) Corrected WBC (Man) PT 14.2 INR 1.08 PTT (Actin FS) 36.0 Sodium Potassium Chloride Carbon Dioxide Anion Gap BUN Creatinine Estimated GFR/1.73 m2 BUN/Creatinine Ratio Glucose POC Glucose Calculated Osmolality Calcium Total Bilirubin AST ALT Alkaline Phosphatase Creatine Kinase Troponin T High Sens Ysr-Z-Uddqmwmsxsk Pept Total Protein Albumin Globulin Albumin/Globulin Ratio Plasma Lactate 1.6 Urine Source CATH Urine Color ORANGE Urine Turbidity TURBID Urine pH 6.5 Ur Specific [place] 1.014 Urine Protein 300 A Ur Glucose (Stick) NEGATIVE Ur Ketones (Stick) NEGATIVE Urine Blood MODERATE A Urine Nitrite NEGATIVE Urine Bilirubin NEGATIVE Urobilinogen Dipstick NORMAL Urine Leukocytes LARGE A Urine WBC (Auto) TNTC A Urine RBC (Auto) TNTC A U Epithel Cells (Auto) <10 Urine Bacteria (Auto) 4+ Urine Crystals NONE SEEN Small Round Cells NONE SEEN Urine Casts NONE SEEN Urine Yeast-like Cells NONE SEEN Orders Category Date Time Status Admit - [facility] Routine AdmDCTranf 10/14/19 17:27 Active Activity - Strict Bedrest ORDERED Care 10/14/19 17:27 Active Call Admitting on Arrival AT ADMISSION Care 10/14/19 17:29 Active Cardiac Monitoring NOW Care 10/14/19 14:22 Active IV Insertion NOW Care 10/14/19 14:22 Completed NEWS Score >or=5:Order NEWS Bundle S.O. NOW Care 10/14/19 15:02 Active Notify Provider of NEWS Score NOW Care 10/14/19 14:22 Active Nursing- MD Consult Request ROUTINE Care 10/14/19 18:40 Active Saline Loc DIRECTED Care 10/14/19 17:27 Active Vital Signs Order ROUTINE Care 10/14/19 17:27 Active Z-Document. for Tele Applied ORDERED Care 10/14/19 17:29 Active Physician/Provider Consults Routine Cons 10/14/19 18:40 Ordered Heart Healthy Diet Diet 10/14/19 17:30 Active CHEST-1 VIEW [RAD] Stat Exams 10/14/19 14:[address] HEAD W/O CONTRAST [CT] Stat Exams 10/14/19 14:23 Completed BLOOD CULTURE [BLDCUL] Stat Lab 10/14/19 15:40 Results CBC WITH DIFF [HEME] Stat Lab 02/29/20 15:46 Completed CK PROFILE [SP CHEM] Stat Lab 10/14/19 15:46 Completed COMPREHENSIVE METABOLIC PANEL [CHEM] Stat Lab 10/14/19 15:46 Completed INFLUENZA SCREEN A/B Stat Lab 10/14/19 15:22 Completed LACTATE, PLASMA [CHEM] Lab 10/14/19 18:30 Uncollected LACTATE, PLASMA [CHEM] Lab 10/14/19 21:30 Uncollected LACTATE, PLASMA [CHEM] Q3H Lab 10/14/19 15:47 Completed PRO B-NATRIURETIC PEPTIDE Stat Lab 10/14/19 15:46 Completed PROTIME WITH INR [COAG] Stat Lab 10/14/19 15:46 Completed PTT [COAG] Stat Lab 10/14/19 15:46 Completed TROPONIN T HIGH SENSITIVITY Stat Lab 10/14/19 15:46 Completed TROPONIN T HIGH SENSITIVITY Stat Lab 10/14/19 19:00 Uncollected URINALYSIS W/POSS RFLX CULT [URINALYSIS] Stat Lab 10/14/19 17:45 Completed URINE MANUAL MICROSCOPIC [URINALYSIS] Stat Lab 10/14/19 17:45 Completed 0.9% Sodium Chloride Inj [Ns] 1,000 ml Med 10/14/19 14:42 Discontinued .ROUTE As directed 0.9% Sodium Chloride Inj [Ns] 1,000 ml Med 10/14/19 17:27 Active IV 75 mls/hr 0.9% Sodium Chloride Inj [Ns] 1,000 ml Med 10/14/19 14:39 Discontinued IV 999 mls/hr Allopurinol [Zyloprim] Med 10/15/19 09:00 Active 100 mg PO DAILY Aspirin Med 10/14/19 15:04 Discontinued 325 mg PO NOW ONE Duloxetine [Cymbalta] Med 10/15/19 09:00 Active 30 mg PO DAILY Finasteride [Proscar] Med 10/15/19 09:00 Active 5 mg PO DAILY Furosemide [Lasix] Med 10/14/19 21:00 Active 40 mg IV Q12HR Hydrocodone/APAP 5 mg/325 mg [[place]-5] Med 10/14/19 17:35 Active 1 each PO Q6H PRN PRN Levothyroxine [Synthroid] Med 10/14/19 17:35 Discontinued 175 microgm PO NOW ONE Sodium Polystyrene [Kayexalate] Med 10/14/19 16:31 Discontinued 30 gm PO NOW ONE Tizanidine [Zanaflex] Med 10/14/19 17:43 Discontinued 4 mg PO Q6H PRN PRN Zolpidem [Ambien] Med 10/14/19 21:00 Active 10 mg PO QHS O2 Per Protocol Stat Oth 10/14/19 14:22 Completed Oxygen Device Routine Oth 10/14/19 17:29 Completed Telemetry [OM.EQ] Routine Oth 10/14/19 17:27 Active EKG [EKG] Stat Ther 10/14/19 14:43 Draft EKG [EKG] Stat Ther 10/14/19 16:36 Ordered EKG [EKG] Stat Ther 10/14/19 19:00 Draft Transfer/Admit Order [TRANSFER] Routine Transfer 10/14/19 17:45 Completed Result Diagrams: 10/14/19 15:46 10/14/19 15:46 - EKG 1 Time of EKG reading by physician:: 15:05 EKG Read and Signed by:: Mone Syed EKG Interpretation (*Must complete 3 of following elements*): Abnormal Rate: 46 Rhythm: Sinus bradycardia [place]: left CA Interval: prolonged Prior EKG Comparison: changes noted (Diffuse anterolateral T wave inversions not noted on prior ekg dated 07/19/2019 at 2056) 2 Time of EKG reading by physician:: 17:00 EKG Read and Signed by:: Mone Syed EKG Interpretation (*Must complete 3 of following elements*): Abnormal Rate: 51 Rhythm: Sinus bradycardia CA Interval: prolonged Prior EKG Comparison: unchanged from prior ( at 1448) - XRAY 1 XRAY Study: Chest Impression: See EMR Report (EXAM: CHEST-1 VIEW HISTORY: AMS TECHNIQUE: Single view COMPARISON: 07/28/2019 FINDINGS: The lungs are well expanded. The heart is not enlarged. The vessels are not distended. There are no infiltrates. Trace right pleural fluid. IMPRESSION: Trace right pleural fluid, otherwise negative exam Electronically signed by Crispin Cobos 10/14/2019 3:09 PM 10/14/19 [id number] Interpreting Physician: Crispin Cobos MD Dictated Date/Time: 10/14/19 7843) - CT/MRI 1 CT Study: Head Impression: See EMR Report (EXAM: CT HEAD W/O CONTRAST HISTORY: AMS TECHNIQUE: CT head without contrast COMPARISON: 08/18/2017 FINDINGS: No parenchymal hemorrhage. No epidural or subdural hematoma. No subarachnoid hemorrhage. Mild chronic microvascular ischemic changes. No mass identified on this noncontrasted exam. No hydrocephalus. There is fluid in the right mastoid sinus.. IMPRESSION: 1.No hemorrhage 2.Mild chronic microvascular ischemic changes This exam was performed using automated exposure control, adjustment of mA or kV according to patient size, and/or use of iterative reconstruction technique. Electronically signed by Crispin Cobos 10/14/2019 4:36 PM 10/14/19 [id number] Interpreting Physician: Crispin Cobos MD Dictated Date/Time: 10/14/19 8671) - CONSULTS/PCP/HOSPITALIST Notification #1 *Consult/PCP/Hospitalist*: Cardiology (Dr. Boss) Time Discussed: 17:17 (Obtain ECHO ) Consult Disposition: Admit #2 Consult: Dr. Bailey Time Discussed: 17:30 Consult Disposition: Admit Departure - Departure Date of Disposition Decision: 10/14/19 Time of Disposition Decision: 17:30 DIAGNOSIS: VENTURA (acute kidney injury), Elevated troponin, Hyperkalemia, Pleural effusion on right, Macrocytic anemia, Wheelchair bound Heart failure Qualifiers: Heart failure type: unspecified Heart failure chronicity: acute on chronic Qualified Code(s): I50.9 - Heart failure, unspecified Chronic kidney disease Qualifiers: Chronic kidney disease stage: stage 4 (severe) Qualified Code(s): N18.4 - Chronic kidney disease, stage 4 (severe) Disposition: ADMITTED INPATIENT 09 Certified Medical Emergency: Emergent Condition: Stable - Critical Care Note This patient required my direct & personal management of CC.: No Attestation - Physician/ ZARI Attestation Patient care was provided by Advanced Practice Provider:: No The physician spent face to face time with patient:: Yes Advanced Practice Provider documentation review:: Supervising physician onsite and consulted in the evaluation and care of this patient. The physician did have a face to face encounter with the patient. - HEART Score HEART Score: History: Moderately Suspicious HEART Score: ECG: Non-Specific Repolarization Disturbance/LBBB/PM HEART Score: Age: > or = 65 Years HEART Score: Risk Factors for Atherosclerotic Disease: > or = 3 Risk Factors or History of Atherosclerotic Disease HEART Score: Troponin: 1-3x Normal Limit Total HEART Score:: 7
[2019-10-14] MEDS ORDERED: ASPIRIN PO ONE (15:04)
--- NOTE | 2019-10-14 15:11 | Diag Imaging Result Doc PS360 ---
EXAM: CHEST-1 VIEW HISTORY: AMS TECHNIQUE: Single view COMPARISON: 07/28/2019 FINDINGS: The lungs are well expanded. The heart is not enlarged. The vessels are not distended. There are no infiltrates. Trace right pleural fluid. IMPRESSION: Trace right pleural fluid, otherwise negative exam Electronically signed by Crispin Cobos 10/14/2019 3:09 PM
[2019-10-14 16:12] LABS: BASO# 0.02 X1000 (0.0-0.2); BASO% 0.3 % (0.0-0.8); EOS# 0.41 X1000 (0.0-0.7); EOS% 6.9 % (0.0-10.0); HEMATOCRIT 34.7 % (42.0-52.0); LYMPH# 1.21 X1000 (1.2-3.4); LYMPH% 20.4 % (20.5-51.1); MCH 31.9 PG (27-31); MCHC 31.7 g/dL (33-37); MCV 100.6 FL (81-99); MONO# 0.29 X1000 (0.11-0.59); MONO% 4.9 % (1.7-9.3); MPV 10.6 FL (7.4-10.4); NEUT# 4.01 X1000 (1.4-6.5); NEUT% 67.5 % (42.2-75.2); PLT 192 X1000 (130-400); RBC 3.45 XMIL (4.7-6.1); RDW 14.2 % (11.5-14.5); WBC 5.94 X1000 (4.8-10.8)
[2019-10-14 16:27] LABS: ALB/GLOB RATIO 1.7; ALBUMIN 3.6 g/dL (3.5-5.0); CALCIUM 9.2 mg/dL (8.8-10.2); CREATININE 3.7 mg/dL (0.7-1.2); POTASSIUM 5.6 mmol/L (3.5-5.1); TOTAL BILIRUBIN 0.35 mg/dL (0.20-1.00); TOTAL PROTEIN 5.7 g/dL (6.3-8.3)
[2019-10-14] MEDS ORDERED: KAYEXALATE PO ONE (16:31)
--- NOTE | 2019-10-14 16:39 | Diag Imaging Result Doc PS360 ---
EXAM: CT HEAD W/O CONTRAST HISTORY: AMS TECHNIQUE: CT head without contrast COMPARISON: 08/18/2017 FINDINGS: No parenchymal hemorrhage. No epidural or subdural hematoma. No subarachnoid hemorrhage. Mild chronic microvascular ischemic changes. No mass identified on this noncontrasted exam. No hydrocephalus. There is fluid in the right mastoid sinus.. IMPRESSION: 1.No hemorrhage 2.Mild chronic microvascular ischemic changes This exam was performed using automated exposure control, adjustment of mA or kV according to patient size, and/or use of iterative reconstruction technique. Electronically signed by Crispin Cobos 10/14/2019 4:36 PM
--- NOTE | 2019-10-14 16:48 | EKG Report ---
Test Performed on : 10/14/2019 2:48:04 PM Test Reason : LETHARGIC Blood Pressure : / mmHG Vent. Rate : 046 BPM Atrial Rate : 046 BPM P-R Int : 214 ms QRS Dur : 086 ms QT Int : 572 ms P-R-T Axes : 026 001 -66 degrees QTc Int : 500 ms Sinus bradycardia. with 1st degree AV block. Marked T wave abnormality, consider anterolateral ischemia Prolonged QT Abnormal ECG When compared with ECG of 19-JUL-2019 20:56, (Unconfirmed) Nonspecific T wave abnormality, worse in Inferior leads T wave inversion now evident in Anterolateral leads Unconfirmed Result
[2019-10-14 16:54] LABS: INR 1.08; PROTIME 14.2 Seconds (11.0-16.0)
[2019-10-14] MEDS ORDERED: DULCOLAX PR PRN ×2 (17:35→20:13)
[2019-10-14] MEDS ORDERED: ROBITUSSIN-DM PO PRN (17:35)
[2019-10-14] MEDS ORDERED: SYNTHROID PO ONE (17:35)
[2019-10-14] MEDS ORDERED: ZANAFLEX PO PRN (17:43)
[2019-10-14 17:55] LABS: URINE SOURCE CATH
[2019-10-14 17:58] LABS: BILIRUBIN URINE NEGATIVE (NEGATIVE); BLOOD URINE MODERATE (NEGATIVE); COLOR ORANGE; GLUCOSE URINE NEGATIVE (NEGATIVE); KETONE URINE NEGATIVE (NEGATIVE); LEUKOCYTES URINE LARGE (NEGATIVE); NITRITE URINE NEGATIVE (NEGATIVE); PH URINE 6.5; PROTEIN URINE 300 mg/dL (NEGATIVE); SP GRAVITY URINE 1.014; TURBIDITY URINE TURBID (CLEAR); UROBILINOGEN URINE NORMAL (NORMAL)
[2019-10-14 18:07] LABS: UR EPITHELIAL CELLS <10 /HPF (<10); URINE BACTERIA 4+ /HPF; URINE RBC TNTC /HPF (<10); URINE WBC TNTC /HPF (<10)
[2019-10-14 18:16] LABS: URINE CASTS NONE SEEN; URINE CRYSTALS NONE SEEN; URINE SMALL ROUND CELLS NONE SEEN; URINE YEAST NONE SEEN
[2019-10-14] MEDS: LASIX IV SCH (20:06)
[2019-10-14] MEDS: NORCO-5 PO PRN (20:06)
[2019-10-14] MEDS: AMBIEN PO SCH (20:10)
[2019-10-14] MEDS ORDERED: ROBITUSSIN PO PRN (20:13)
[2019-10-14] MEDS ORDERED: NORCO-5 PO PRN (20:13)
[2019-10-14] MEDS ORDERED: DUONEB (A & A) INH PRN (20:19)
--- NOTE | 2019-10-14 20:40 | EKG Report ---
Test Performed on : 10/14/2019 7:45:52 PM Test Reason : abnormal ekg Blood Pressure : / mmHG Vent. Rate : 076 BPM Atrial Rate : 076 BPM P-R Int : 192 ms QRS Dur : 092 ms QT Int : 424 ms P-R-T Axes : 014 002 -54 degrees QTc Int : 477 ms Sinus rhythm. with premature atrial complexes. T wave abnormality, consider anterior ischemia Abnormal ECG Confirmed by Paulo Cavanaugh MD ([id number]) on 10/19/2019 6:40:26 AM
[2019-10-14] MEDS ORDERED: AMBIEN PO SCH (21:00)
[2019-10-14] MEDS ORDERED: ZANAFLEX PO SCH (22:00)
--- NOTE | 2019-10-14 22:38 | HISTORY AND PHYSICAL ---
CHIEF COMPLAINT: Altered mental status. HISTORY OF PRESENT ILLNESS: Mr. Odell is a 74-year-old white gentleman, a resident of [facility]. Nurses reported the patient to be weak and lethargic. The patient was sent to the ER for evaluation. The patient claims he was not able to sleep well last 2 nights because he had a leg cramps, headache, myalgia. When patient presented to the ER, his initial blood pressure was low. The patient was given IV hydration. His blood pressure improved and his mental status also improved. Patient found to have hyperkalemia. His troponin was elevated. The patient was admitted for further care. The patient does have headache off and on for which he takes pain medication. He denied any typical chest pain, palpitations, orthopnea or PND. Patient does have dyspnea with exertion. The patient is usually bed-bound and he does go to the wheelchair. Patient have chronic catheter for 2 years. He denied any blood in the urine. No diarrhea, blood or mucus in the stool. Denied abdominal pain, nausea, vomiting. The patient does have pain in the legs. At times, symptoms suggestive of peripheral neuropathy. No further history available at this time. ALLERGIES: Adhesive tape and Levaquin. HOME MEDICATIONS: Includes allopurinol, Synthroid, Cymbalta, Protonix, Proscar, [place], Zanaflex, Ambien, MiraLAX, David pack, Dulcolax suppository, guaifenesin and Macrobid. REVIEW OF SYSTEMS: No recent weight loss or weight gain. No heat or cold intolerance. The patient was feeling weak all over. At times, problems sleeping at night. No suicidal or homicidal ideation. PAST MEDICAL HISTORY: 1. Hypertension. 2. Hyperlipidemia. 3. Congestive heart failure. 4. Paroxysmal atrial fibrillation. 5. The patient does have sleep apnea. 6. Gastritis. 7. Reflux disease. 8. Rheumatoid arthritis. 9. Chronic pain and gout. 10. Diabetes mellitus. PAST SURGICAL HISTORY: Patient had back and neck surgery. FAMILY HISTORY: Significant for dementia, diabetes, liver cancer in first- degree relative. SOCIAL HISTORY: . Denied alcohol or substance abuse. Needs assistance in activities of daily living. The patient is lives at [facility]. PHYSICAL EXAMINATION: GENERAL: Elderly white gentleman, in no acute distress. VITAL SIGNS: Blood pressure 138/77, pulse 49, respiration rate 14, temperature 97.3 degrees. SKIN: Senile turgor. No rash or petechiae. HEENT: Head atraumatic, normocephalic. [place] conjunctivae. Anicteric sclerae. Extraocular muscle movement normal. Fundus cannot be penetrated. Good oral hygiene. No tonsillopharyngeal congestion or exudate. Ears and nose benign. NECK: Supple. No JVD, thyromegaly or lymphadenopathy. CHEST: Bilateral good air entry present. Bibasilar crepitations. CARDIOVASCULAR: S1 and S2 heard. No gallop or thrill. ABDOMEN: Soft, globular. Bowel sounds present. No organomegaly or mass. EXTREMITIES: No cyanosis, clubbing. Minimal swelling around ankles. SALES AND LEASING AGENT: Alert, awake. Answering questions fair. Able to move all 4 limbs. LABORATORY DATA: Revealed hemoglobin 11, hematocrit 34.7, WBC count 5.94, platelet count 192,000. PT/INR 1.08, PTT 36. BUN 92, creatinine 3.7. Potassium 5.6. ProBNP was more than 35,000. Urinalysis did reveal too numerous to count WBC, 4+ bacteria. Patient's EKG revealed sinus bradycardia prolonged Q-T interval. Marked T-wave abnormality in the anterolateral leads. ASSESSMENT AND PLAN: Patient admitted with AMS,CHF, diuresis. ER physician did Cardiology consult. Continue home medicine, pain management. Check appropriate labs. Started the patient on IV antibiotics for UTI. Overall plan discussed with the patient and girlfriend and they are in agreement. cc: Tico Bailey MD [facility]
[2019-10-15] MEDS: NORCO-5 PO PRN ×2 (03:03→15:16)
[2019-10-15] MEDS: ZANAFLEX PO SCH ×5 (03:05→21:28)
[2019-10-15 05:20] LABS: BASO# 0.02 X1000 (0.0-0.2); BASO% 0.3 % (0.0-0.8); EOS# 0.43 X1000 (0.0-0.7); EOS% 5.9 % (0.0-10.0); HEMATOCRIT 34.6 % (42.0-52.0); LYMPH# 2.22 X1000 (1.2-3.4); LYMPH% 30.5 % (20.5-51.1); MCHC 31.8 g/dL (33-37); MCV 100.6 FL (81-99); MONO# 0.39 X1000 (0.11-0.59); MONO% 5.3 % (1.7-9.3); MPV 10.8 FL (7.4-10.4); NEUT# 4.23 X1000 (1.4-6.5); PLT 185 X1000 (130-400); RBC 3.44 XMIL (4.7-6.1); RDW 14.2 % (11.5-14.5); WBC 7.29 X1000 (4.8-10.8)
[2019-10-15 05:43] LABS: HEMOGLOBIN A1C 6.3 % (4.8-6.0)
[2019-10-15 05:51] LABS: ALBUMIN 3.1 g/dL (3.5-5.0); CALCIUM 8.5 mg/dL (8.8-10.2); MAGNESIUM 1.7 mg/dL (1.5-2.7); POTASSIUM 4.7 mmol/L (3.5-5.1); TOTAL BILIRUBIN 0.26 mg/dL (0.20-1.00); TOTAL PROTEIN 6.3 g/dL (6.3-8.3)
[2019-10-15 05:52] LABS: FREE T4 1.34 ng/dL (0.93-1.70); TSH 0.25 uIUmL (0.27-4.20)
[2019-10-15] MEDS: ROCEPHIN 1 GM in NS 50 ML IV SCH (06:06)
[2019-10-15] MEDS: SYNTHROID PO SCH (06:07)
[2019-10-15] MEDS: PROTONIX PO SCH (06:07)
[2019-10-15] MEDS ORDERED: PROSCAR PO SCH (09:00)
[2019-10-15] MEDS ORDERED: CYMBALTA PO SCH (09:00)
[2019-10-15] MEDS ORDERED: ZYLOPRIM PO SCH (09:00)
[2019-10-15] MEDS: MIRALAX PO SCH (09:13)
[2019-10-15] MEDS: ZYLOPRIM PO SCH (09:15)
[2019-10-15] MEDS: LASIX IV SCH (09:15)
[2019-10-15] MEDS: CYMBALTA PO SCH (09:15)
[2019-10-15] MEDS: PROSCAR PO SCH (09:16)
--- NOTE | 2019-10-15 10:48 | PROGRESS NOTE ---
DATE: 10/15/2019 SUBJECTIVE: Mr. Odell is feeling better. He denied any chest pain or palpitations. Telemetry reported bradyarrhythmia. Heart rate ranging from 40 to 60. No nausea or vomiting. The patient is taking Zanaflex regularly, even at the [place] [facility]. No dysuria or hematuria. The patient does have chronic Werner catheter. No gross hematuria. Denied any PND. Patient does have orthopnea. OBJECTIVE: His vital signs noted. Blood pressure low normal. Neck is supple. No JVD. Lungs: Bibasilar crepitations. Heart: S1 and S2 heard. Abdomen: Soft, globular. Bowel sounds present. Minimal swelling around ankle. PERIPATOLOGIST: Alert, awake. Answering questions fairly well. Able to move all 4 limbs. Laboratory Data: Done today, hemoglobin 11, hematocrit 34.6, WBC count 7.29, platelet count 185,000. Potassium was 4.7, BUN 86, creatinine was 4, hemoglobin A1c 6.3. TSH 0.25, free T4 of 1.34. ASSESSMENT: 1. Patient admitted with altered mental status. 2. The patient does have a urinary tract infection, most likely due to chronic catheter. 3. Chest x-ray revealed trace right pleural effusion. 4. Stage 4 chronic kidney disease. 5. Muscle spasm. 6. Bradyarrhythmia. 7. Metabolic syndrome. PLAN: I repeated EKG which revealed sinus bradycardia. T-wave inversion in the anterolateral leads. No acute ST elevation. [employer] is going to evaluate the patient today. His magnesium was 1.7. Calcium 8.5. Patient's medications noted. I am going to continue current treatment. Close observation. I did decrease his Lasix from b.i.d. to once a day. cc: Tico Bailey MD
[2019-10-15] MEDS: ASPIRIN EC PO SCH (12:57)
--- NOTE | 2019-10-15 13:11 | ECHO REPORT ---
ORDER DATE: 10/14/2019 INDICATION: Possible heart failure. FINDINGS: 1. The right atrium appears normal in size. 2. Mild tricuspid regurgitation. RV systolic pressure 38. 3. Normal RV size and systolic function. 4. No significant pulmonic insufficiency. 5. Mild left atrial enlargement with a volume index of 33. 6. No mitral valve prolapse. Mild mitral regurgitation. 7. Normal LV size, end-diastolic dimension of 5.1 cm. No evidence of LVH. Endocardial borders were difficult to visualize on regular 2-dimensional imaging. Optison contrast was used. Ejection fraction appears to be normal with an estimated EF of 55%. No obvious wall motion abnormalities. 8. The aortic valve opens well. Mild insufficiency. No stenosis. 9. The aorta appears normal on visualized segments. 10. No pericardial effusion identified. cc: MD Tico Gonzalez MD
[2019-10-15] MEDS ORDERED: NS 1,000 ML IV SCH (14:00)
--- NOTE | 2019-10-15 14:12 | CARDIOLOGY CONSULTATION ---
DATE: 10/15/2019 CHIEF COMPLAINT: Apparent altered mental status. HISTORY OF PRESENT ILLNESS: Mr. Odell is a 74-year-old, white male who is a current resident of [facility]. He apparently had an episode yesterday where he was difficult arouse. He said he was not able to sleep very well and has had poor oral intake for the last couple of days due to issues with headaches and myalgias. He was noted to have a low blood pressure and he subsequently presented to the ER. The patient is a bedbound patient at [facility] secondary to complications after a back surgery which resulted in significant lower extremity weakness. He denies any chest pain complaints. He has had no shortness of breath, no orthopnea. He denies any swelling. PAST MEDICAL HISTORY: Significant for: 1. Coronary artery disease. His last nuclear scan was in 2016. That demonstrated no clear evidence of ischemic changes. He had some inferior fixed defects suggesting diaphragmatic attenuation. His ejection fraction was normal. 2. History of atrial flutter with a DC cardioversion in 2016. 3. Hypertension. 4. Hyperlipidemia. 5. Type 2 diabetes. 6. Chronic kidney disease. SOCIAL HISTORY: He is . No current substance abuse issues. No alcohol. He currently lives at [facility]. FAMILY HISTORY: Significant for dementia, diabetes, and liver cancer. REVIEW OF SYSTEMS: A 10 system review of systems is negative except for those things mentioned in the HPI. PHYSICAL EXAMINATION: The patient is afebrile. His heart rates over the last 24 hours have been anywhere from the 40s to the 50s predominantly. His blood pressure is 98/50. Generally, he is in no acute distress. HEENT: Oropharynx is moist. He has poor dentition. His eye examination shows pink conjunctivae and white sclerae. Neck: Examination shows no obvious thyromegaly or thyroid tenderness. Cardiovascularly, he sounds to be in a regular rate and rhythm. He has no obvious murmurs. He has no S3. He has no lower extremity edema. He has slightly cool distal extremities. Chest Examination: Clear to auscultation bilaterally. He has no increased work of breathing. Abdomen: Soft, nontender, nondistended. He has no obvious organomegaly. Skin: Examination is warm and dry throughout. PERTINENT DATA: His white count is 7.2, hematocrit 34, his platelet count is 185,000. His sodium is 140, potassium 4.7, his BUN is 86, creatinine is 4. On review of his creatinine trends, his creatinine was 2.5 in early September and it seems like his usual trend is somewhere in the mid 2 range but it is widely fluctuant. His albumin is 3.1. His proBNP was greater than 35,000 yesterday. His troponin initially was checked and was 89, subsequent 83. TSH 0.25, free T4 of 1.34. His urinalysis had a large number of leukocytes noted, 4+ bacteria, nitrite negative. ASSESSMENT: Mr. Odell is a 74-year-old gentleman who presented with some altered mental status and hypotension. PLAN: His ejection fraction appears normal on echocardiogram. We could not get images of his IVC on that study. At this point, by history and poor oral intake over the last couple of days, I would recommend a trial of fluids. I will discontinue the Lasix. He did have improvement in his blood pressure on presentation yesterday with fluids. I will discontinue the Lasix. I would not work him up from an ischemic standpoint presently. He does have a dirty urinalysis but he is also noted to have an indwelling catheter. cc: MD Tico Gonzalez MD
--- NOTE | 2019-10-15 17:31 | EKG Report ---
Test Performed on : 10/14/2019 4:54:12 PM Test Reason : CP Blood Pressure : / mmHG Vent. Rate : 051 BPM Atrial Rate : 051 BPM P-R Int : 206 ms QRS Dur : 090 ms QT Int : 556 ms P-R-T Axes : 023 002 250 degrees QTc Int : 512 ms Sinus bradycardia. T wave abnormality, consider inferior ischemia T wave abnormality, consider anterolateral ischemia Prolonged QT Abnormal ECG When compared with ECG of 14-OCT-2019 14:48, (Unconfirmed) No significant change was found Unconfirmed Result
[2019-10-15] MEDS: AMBIEN PO SCH (21:28)
[2019-10-16] MEDS: ZANAFLEX PO SCH ×4 (03:41→21:32)
[2019-10-16 06:13] LABS: CALCIUM 9.5 mg/dL (8.8-10.2); CREATININE 4.1 mg/dL (0.7-1.2); POTASSIUM 4.7 mmol/L (3.5-5.1)
[2019-10-16] MEDS: SYNTHROID PO SCH (06:20)
[2019-10-16] MEDS: ROCEPHIN 1 GM in NS 50 ML IV SCH (06:20)
[2019-10-16] MEDS: PROTONIX PO SCH (06:20)
--- NOTE | 2019-10-16 08:08 | EKG Report ---
Test Performed on : 10/15/2019 09:57:01 AM Test Reason : NO EKG ORDER FOR MUSE Blood Pressure : / mmHG Vent. Rate : 050 BPM Atrial Rate : 050 BPM P-R Int : 204 ms QRS Dur : 090 ms QT Int : 546 ms P-R-T Axes : 020 011 223 degrees QTc Int : 497 ms Critical Test Result: Low HR Sinus bradycardia. Possible Lateral infarct , age undetermined T wave abnormality, consider anterior ischemia Abnormal ECG When compared with ECG of 14-OCT-2019 19:45, (Unconfirmed) premature atrial complexes. are no longer present Vent. rate has decreased BY 26 BPM Inverted T waves have replaced nonspecific T wave abnormality in Lateral leads Anterior T wave abnormality is more pronounced. Confirmed by Gio Burkett MD ([id number]) on 10/17/2019 9:45:07 PM
[2019-10-16] MEDS ORDERED: LASIX IV SCH (09:00)
[2019-10-16] MEDS: NS 1,000 ML IV SCH (09:33)
[2019-10-16] MEDS: NORCO-5 PO PRN ×3 (09:33→21:32)
[2019-10-16] MEDS: ASPIRIN EC PO SCH (09:34)
[2019-10-16] MEDS: ZYLOPRIM PO SCH (09:34)
[2019-10-16] MEDS: PROSCAR PO SCH (09:34)
[2019-10-16] MEDS: CYMBALTA PO SCH (09:34)
[2019-10-16] MEDS: MIRALAX PO SCH (09:34)
[2019-10-16] MEDS: APRESOLINE IV PRN (12:29)
--- NOTE | 2019-10-16 14:17 | CARDIOLOGY PROGRESS NOTE ---
DATE: 10/16/2019 SUBJECTIVE: Mr. Odell reports he feels well except for pain in his legs. That seems to be a chronic issue for him. He has had no worsening in his breathing. OBJECTIVE: Vital signs: Afebrile. Heart rate 68. His blood pressure is 181/104. General: No acute distress. Cardiovascular: He sounds to be in a regular rate and rhythm. He has no murmurs. He has no S3. He has no lower extremity edema. Chest: Clear bilaterally. He has no increased work of breathing. Abdomen: Soft, nontender, nondistended. He has no obvious organomegaly. PERTINENT DATA: His sodium is 141, potassium 4.7, BUN is 92, creatinine is 4.1, which is roughly stable from yesterday. ASSESSMENT: Mr. Odell is a 74-year-old gentleman who presented with worsening renal function and a history of poor oral intake over the previous several days. We have recommended a trial of fluids. PLAN: The patient has not had any worsening in his breathing status. He has a normal ejection fraction. We will proceed with continued hydration. cc: MD Tico Gonzalez MD
[2019-10-16] MEDS: ULTRAM PO PRN (16:37)
--- NOTE | 2019-10-16 22:51 | PROGRESS NOTE ---
DATE: 10/16/2019 SUBJECTIVE: A 74-year-old white gentleman transferred to [facility] on basically with low heart rate, low blood pressure. He has some azotemia, altered mental status. He also has a chronic UTI. Currently, he is not offering any chest pain. He is complaining of chronic pain. Hydrocodone and Zanaflex is not helping. PAST MEDICAL HISTORY: Reviewed. PAST SURGICAL HISTORY: Reviewed. MEDICINES: Reviewed. ALLERGIES: Adhesive tape and Levaquin. PHYSICAL EXAMINATION: Vital signs: Temperature is 98.2 degrees, pulse 54, blood pressure 109/62, 92%. HEENT Exam: [place] in color on the right eye noted. Neck: Supple. Chest: Bilateral air entry. Heart: Sounds are regular. Abdomen: Belly is soft, obese, nontender. Genitourinary: Chronic indwelling catheter noted. Extremities: No peripheral edema, cyanosis, clubbing. Back: He has a chronic back pain, basically bedridden. LABS: CBC: White cell count 7.2, hematocrit 34, MCV 100, platelets 185,000. Sodium 141, potassium 4.7, BUN 92, creatinine 4.1, glucose 131, and calcium 9.5. ProBNP 3500. Troponin T was high. CK was normal. Free T4 is normal. Urinalysis positive for infection. Blood cultures are negative. Influenza panel was negative and urine cultures are Pseudomonas aeruginosa. ASSESSMENT AND PLAN: 1. Hypotension and bradycardia. I did review the EKGs. It showed sinus heart rate is about 50 and he has history of P-wave inversion, atypical, in the anterior precordial leads V2 to V5, V6 and these are the new changes. Cardiology consult was obtained. His last nuclear scan in 2017 had some fixed defects. He has atrial flutter with DC cardioversion in 2016. We will continue to monitor. 2. Acute kidney injury with chronic renal failure. Gentle hydration 50 mL/h. 3. 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 4. Chronic pain on [place] and Zanaflex. Added tramadol in between. 5. Benign prostatic hyperplasia on Cymbalta. 6. History of kidney stones, stable. 7. Chronic pain and depression on Cymbalta. 8. Gout, on allopurinol. 9. Hypothyroidism, on Synthroid replacement therapy 175 mcg daily. 10. Acid reflux disease on Protonix. 11. Chronic constipation 17 g of MiraLAX twice daily. 12. Type 2 diabetes diet controlled. 13. History of gout on Zyloprim. Follow up on CBC, SMA 7, and closely monitor his cardiac status. 14. Vaccination. Pneumococcal vaccine was given 2017 and will follow up. LEVEL OF DOCUMENTATION: 35 minutes. cc: MD Tico Trejo MD
[2019-10-16] MEDS: AMBIEN PO SCH (22:52)
[2019-10-17] MEDS: NS 1,000 ML IV SCH (04:05)
[2019-10-17] MEDS: NORCO-5 PO PRN ×3 (04:07→21:31)
[2019-10-17] MEDS: ZANAFLEX PO SCH ×4 (04:07→21:25)
[2019-10-17 05:11] LABS: BASO# 0.02 X1000 (0.0-0.2); BASO% 0.2 % (0.0-0.8); EOS% 6.9 % (0.0-10.0); HEMATOCRIT 34.7 % (42.0-52.0); HEMOGLOBIN 10.8 g/dL (14.0-18.0); LYMPH# 1.94 X1000 (1.2-3.4); LYMPH% 22.3 % (20.5-51.1); MCH 31.2 PG (27-31); MCHC 31.1 g/dL (33-37); MCV 100.3 FL (81-99); MONO# 0.55 X1000 (0.11-0.59); MONO% 6.3 % (1.7-9.3); MPV 10.6 FL (7.4-10.4); NEUT# 5.59 X1000 (1.4-6.5); NEUT% 64.3 % (42.2-75.2); PLT 170 X1000 (130-400); RBC 3.46 XMIL (4.7-6.1); RDW 14.3 % (11.5-14.5)
[2019-10-17 05:50] LABS: CALCIUM 9.2 mg/dL (8.8-10.2); CREATININE 4.2 mg/dL (0.7-1.2); POTASSIUM 4.9 mmol/L (3.5-5.1)
[2019-10-17] MEDS: PROTONIX PO SCH (06:09)
[2019-10-17] MEDS: SYNTHROID PO SCH (06:09)
[2019-10-17] MEDS: ROCEPHIN 1 GM in NS 50 ML IV SCH (06:09)
[2019-10-17] MEDS: ULTRAM PO PRN ×2 (09:31→18:52)
[2019-10-17] MEDS: ZYLOPRIM PO SCH (09:32)
[2019-10-17] MEDS: CYMBALTA PO SCH (09:32)
[2019-10-17] MEDS: PROSCAR PO SCH (09:32)
[2019-10-17] MEDS: ASPIRIN EC PO SCH (09:32)
[2019-10-17] MEDS: MIRALAX PO SCH (09:32)
--- NOTE | 2019-10-17 14:55 | CARDIOLOGY PROGRESS NOTE ---
DATE: 10/17/2019 SUBJECTIVE: Mr. Odell reports his breathing is doing well. He has no pain complaints. OBJECTIVE: Vital Signs: Afebrile. Heart rate 80, blood pressure was 166/91. General: He is in no acute distress. Cardiovascular: He sounds to be in a regular rate and rhythm. He has no murmurs. He has no S3. He has minimal bilateral lower extremity edema. Respiratory: His chest exam is clear bilaterally. He has no increased work of breathing. Abdomen: Soft, nontender. PERTINENT DATA: Sodium 138, potassium 4.9, BUN 92, creatinine is 4.2. ASSESSMENT: Mr. Odell is a 74-year-old gentleman who presented with likely volume depletion. PLAN: We will likely sign off at this point. He is receiving IV fluids. He is in CKD stage 5 at this point, with a GFR 14. I do not have any acute cardiovascular recommendations. He has a normal ejection fraction based on echo from the . I will sign off at this point. cc: MD Tico Gonzalez MD MTDD
[2019-10-17] MEDS ORDERED: CALMOSEPTINE OINTMENT TOP PRN (18:14)
--- NOTE | 2019-10-17 19:17 | PROGRESS NOTE ---
DATE: 10/17/2019 SUBJECTIVE: The patient is asking for more pain medicine despite [place] 10 q.6, Zanaflex 4 mg q.6 and tramadol. Appreciated Cardiology consult. Dr. Boss does not want to do any further workup. OBJECTIVE: Temperature is 97 degrees, pulse is 50, blood pressure is 110/52. HEENT exam within normal limits. Chest: Bilateral air entry. Heart sounds are regular. Belly is soft, nontender. Werner was placed, with chronic back pain. INVESTIGATIONS: CBC: White cell count 8.7, hematocrit 34, platelets 170,000. His SMA 7: Sodium 92, creatinine 4.2. ASSESSMENT AND PLAN: 1. Chronic back pain, requiring more pain medicines. I spoke to him, left to decide with Carmelita concerning palliative care consult. 2. Acute kidney injury with chronic renal failure. Gentle hydration 50 mL/h, and follow up on daily basis. 3. Pseudomonas aeruginosa. Chronic indwelling catheter, and currently on intravenous ceftriaxone. 4. Ambien for sleep. We will discuss with his about palliative care consult, since he does not have any quality of life. He is going to discuss with his , and based on that further recommendations will be followed. 5. Abnormal electrocardiograms. Low heart rate. Dr. Boss is not going to pursue any further workup. Level of documentation 25 minutes. cc: MD Tico Trejo MD
[2019-10-17] MEDS: AMBIEN PO SCH (21:25)
[2019-10-18] MEDS: NS 1,000 ML IV SCH ×2 (02:05→21:50)
[2019-10-18] MEDS: ULTRAM PO PRN ×2 (03:02→11:57)
[2019-10-18] MEDS: ZANAFLEX PO SCH ×4 (03:02→21:46)
[2019-10-18 05:47] LABS: BASO# 0.02 X1000 (0.0-0.2); BASO% 0.3 % (0.0-0.8); EOS# 0.49 X1000 (0.0-0.7); EOS% 6.2 % (0.0-10.0); HEMATOCRIT 30.7 % (42.0-52.0); HEMOGLOBIN 9.8 g/dL (14.0-18.0); IMM GRAN# 0.02 X1000 (0.0-0.04); IMM GRAN% 0.3 % (0.0-0.5); LYMPH# 1.99 X1000 (1.2-3.4); LYMPH% 25.2 % (20.5-51.1); MCH 31.9 PG (27-31); MCHC 31.9 g/dL (33-37); MONO# 0.44 X1000 (0.11-0.59); MONO% 5.6 % (1.7-9.3); MPV 10.7 FL (7.4-10.4); NEUT# 4.95 X1000 (1.4-6.5); NEUT% 62.4 % (42.2-75.2); PLT 170 X1000 (130-400); RBC 3.07 XMIL (4.7-6.1); RDW 13.8 % (11.5-14.5); WBC 7.91 X1000 (4.8-10.8)
[2019-10-18] MEDS: ROCEPHIN 1 GM in NS 50 ML IV SCH (06:14)
[2019-10-18] MEDS: SYNTHROID PO SCH (06:14)
[2019-10-18] MEDS: PROTONIX PO SCH (06:14)
[2019-10-18 06:27] LABS: CALCIUM 8.8 mg/dL (8.8-10.2); CREATININE 3.9 mg/dL (0.7-1.2); POTASSIUM 5.1 mmol/L (3.5-5.1)
[2019-10-18] MEDS: MIRALAX PO SCH (09:31)
[2019-10-18] MEDS: NORCO-5 PO PRN ×3 (09:32→21:46)
[2019-10-18] MEDS: CYMBALTA PO SCH (09:33)
[2019-10-18] MEDS: ZYLOPRIM PO SCH (09:33)
[2019-10-18] MEDS: PROSCAR PO SCH (09:33)
[2019-10-18] MEDS: ASPIRIN EC PO SCH (09:33)
[2019-10-18] MEDS: APRESOLINE IV PRN (11:58)
--- NOTE | 2019-10-18 21:13 | PROGRESS NOTE ---
DATE: 10/18/2019 SUBJECTIVE: The patient is feeling a little better today. His is here and I had a long discussion about palliative care, about pain management and the patient is agreeable upon DNR. He wanted to change the Werner catheter and slow the IV fluids going on. OBJECTIVE: Temperature is 98 degrees, pulse is 86, blood pressure is 140/68.HEENT: Within normal limits. Chest: Clear to auscultation. Heart: Sounds are regular. Abdomen: Belly is soft, nontender. LABS: CBC: White cell count 7.9, hematocrit 30, platelets 170,000. SMA-7: Sodium 140, potassium 5.1, BUN 91, creatinine 3.9. ASSESSMENT AND PLAN: 1. Chronic back pain. Continue on present medical treatment. 2. Chronic kidney disease, with acute renal failure. Gentle hydration. 3. Pseudomonas urinary tract infection on IV ceftriaxone. 4. Chronic stable, so plan of care gentle IV fluids. Follow up on [facility]. 5. Palliative care consult initiated, living will, DNR and planning to discharge Wednesday to rehab with hospice care since there is no quality of the care. We will change the Werner catheter today. LEVEL OF DOCUMENTATION: 35 minutes. cc: MD Tico Trejo MD
[2019-10-18] MEDS: AMBIEN PO SCH (21:46)
[2019-10-19] MEDS: APRESOLINE IV PRN ×2 (01:32→11:32)
[2019-10-19] MEDS: ZANAFLEX PO SCH ×4 (03:06→21:36)
[2019-10-19] MEDS: ULTRAM PO PRN ×2 (03:40→11:34)
[2019-10-19] MEDS ORDERED: APRESOLINE IV ONE (03:55)
[2019-10-19 05:28] LABS: BASO# 0.02 X1000 (0.0-0.2); BASO% 0.2 % (0.0-0.8); EOS# 0.32 X1000 (0.0-0.7); HEMATOCRIT 33.6 % (42.0-52.0); HEMOGLOBIN 10.8 g/dL (14.0-18.0); IMM GRAN# 0.03 X1000 (0.0-0.04); IMM GRAN% 0.3 % (0.0-0.5); LYMPH# 1.23 X1000 (1.2-3.4); LYMPH% 11.4 % (20.5-51.1); MCH 32.1 PG (27-31); MCHC 32.1 g/dL (33-37); MONO# 0.42 X1000 (0.11-0.59); MONO% 3.9 % (1.7-9.3); MPV 10.3 FL (7.4-10.4); NEUT# 8.79 X1000 (1.4-6.5); NEUT% 81.2 % (42.2-75.2); PLT 189 X1000 (130-400); RBC 3.36 XMIL (4.7-6.1); RDW 14.1 % (11.5-14.5); WBC 10.81 X1000 (4.8-10.8)
[2019-10-19 05:48] LABS: CALCIUM 9.1 mg/dL (8.8-10.2); CREATININE 3.6 mg/dL (0.7-1.2)
[2019-10-19] MEDS: SYNTHROID PO SCH (06:05)
[2019-10-19] MEDS: ROCEPHIN 1 GM in NS 50 ML IV SCH (06:05)
[2019-10-19] MEDS: PROTONIX PO SCH (06:06)
[2019-10-19] MEDS: PROSCAR PO SCH (08:39)
[2019-10-19] MEDS: MIRALAX PO SCH (08:39)
[2019-10-19] MEDS: ZYLOPRIM PO SCH (08:39)
[2019-10-19] MEDS: CYMBALTA PO SCH (08:39)
[2019-10-19] MEDS: ASPIRIN EC PO SCH (08:39)
[2019-10-19] MEDS ORDERED: ZOFRAN IV PRN (12:38)
[2019-10-19] MEDS: NS 1,000 ML IV SCH (16:14)
[2019-10-19] MEDS: NORCO-5 PO PRN (18:51)
--- NOTE | 2019-10-19 21:07 | PROGRESS NOTE ---
DATE: 10/19/2019 SUBJECTIVE: I spoke to the patient twice and leaning towards hospice care. There is no quality of life. Portable DNR was assigned and planning to discharge to [facility]. I had a meeting this afternoon. Arrangements were made to send home, [facility] tomorrow for rehab. OBJECTIVE: Vital Signs: Stable. HEENT: Within normal limits. Chest: Clear. Heart: Sounds are regular. Abdomen: Belly is soft, nontender. ASSESSMENT AND PLAN: 1. Deconditioning. 2. Acute kidney injury with chronic renal failure Pseudomonas infection, chronic indwelling Werner catheter. 3. Gout. 4. Hypothyroidism 5. Benign prostatic hypertrophy. 6. Chronic back pain. 7. Portable DNR papers were none done. 8. Continue gentle hydration. 9. We will discharge tomorrow with rehab with palliative care and hospice. Family agreed upon as well as the patient. LEVEL OF DOCUMENTATION: 25 minutes. cc: MD Tico Trejo MD
[2019-10-19] MEDS: AMBIEN PO SCH (21:35)
[2019-10-20] MEDS: NORCO-5 PO PRN ×2 (00:38→06:18)
[2019-10-20] MEDS: ZANAFLEX PO SCH ×2 (03:48→09:10)
[2019-10-20] MEDS: ULTRAM PO PRN (03:48)
[2019-10-20] MEDS: ROCEPHIN 1 GM in NS 50 ML IV SCH (06:18)
[2019-10-20] MEDS: PROTONIX PO SCH (06:18)
[2019-10-20] MEDS: SYNTHROID PO SCH (06:18)
[2019-10-20] MEDS: ZYLOPRIM PO SCH (08:54)
[2019-10-20] MEDS: MIRALAX PO SCH (08:55)
[2019-10-20] MEDS: CYMBALTA PO SCH (08:55)
[2019-10-20] MEDS: ASPIRIN EC PO SCH (08:55)
[2019-10-20] MEDS: PROSCAR PO SCH (08:55)
--- NOTE | 2019-10-20 09:27 | DISCHARGE SUMMARY ---
ADMISSION DATE: 10/14/2019 DISCHARGE DATE: 10/20/2019 DISCHARGING DIAGNOSIS: Altered mental status due to metabolic encephalopathy. SECONDARY DIAGNOSES: 1. Acute kidney injury with chronic renal failure due to hypotension. 2. Uncontrolled hypertension. 3. Deconditioning. 4. Chronic urinary tract infection due to indwelling Werner catheter. 5. Hyperlipidemia. 6. Paroxysmal atrial fibrillation. 7. Sleep apnea. 8. Acid reflux disease. 9. Gout. 10. Type 2 diabetes. 11. History of cholecystectomy. 12. Right lower lobe bronchiectasis. 13. Nonobstructing kidney stone with renal scarring and atrophy. 14. History of constipation due to chronic pain therapy. CONSULT: Dr. Edward Boss. BRIEF HISTORY: Please see the H and P that was done by Dr. Bailey. In brief he is a 74-year- old white gentleman who has not had any quality of life, basically bedridden for multiple back surgeries, deconditioning with muscle spasms, requiring chronic Werner catheter. Living in [facility]. He was brought in again with low blood pressure, low heart rate with altered mental status, some headaches, nausea. Prior to the admission, patient had a normal CT. The patient was started on gentle hydration. Dr. Boss was consulted. EKG was abnormal with Q- waves in the anterior leads. Subsequent workup was unremarkable. Echocardiography findings: Normal LV function, no wall motions. He remains in sinus with fluctuation of blood pressure. Apparently last nuclear scan was negative in 2017. There are fixed defects. He did require cardioversion in 2016. At this point, Dr. Boss continues gentle hydration. No need for any cardiac workup. Recurrent UTI due to indwelling Werner catheter. Werner catheter was changed. He was given IV ceftriaxone. It grew Pseudomonas aeruginosa. Basically, change the Werner catheter once a month. There is no need to treat unless he is symptomatic. Blood pressure is fluctuating requiring hydralazine as needed. Palliative Care consult was obtained by Liliana. I had a long discussion with Carmelita that he has been asking for more pain medicine. There is no quality of life. His BPS score is less than 50% and living will was discussed. He made a DNR level 1. He does not want to go for dialysis and he wants to go for rehab with hospice. I did initiate hospice care in the rehab facility with comfort care. LABS: At the time of discharge as follows: White cell count 10, hematocrit 33.6, platelets 189,000. Sodium 139, potassium 5, chloride 106, BUN 85, creatinine 3.6, glucose 157. Thyroid function tests were normal. Chest x-ray was stable. CT head no hemorrhage. Mild chronic microvascular ischemic changes. DISCHARGE INSTRUCTIONS: Pneumococcal vaccine 13 was given 04/19/2017. 1. Zyloprim 100 mg daily. 2. Synthroid 175 daily. 3. Protonix 40 daily. 4. Cymbalta 30 daily. 5. [place] 5 q.6 as needed for pain. 6. Tizanidine 4 mg q.6. 7. Ambien 10 at bedtime. 8. MiraLAX 17 g daily. 9. Dulcolax 10 as needed. 10. Change the Werner catheter once a month. 11. Zofran 4 mg as needed for nausea. Living Will DNR with hospice care at rehab and will follow up through the [facility] meetings. cc: MD Tico Trejo MD
[2019-10-20 11:16] VITALS: BP 151/94
== END 2019-10-20 13:56 | DRG 698 ==
LOC: SUPCPDRO → ED 14:06 → 1N 18:02
PROVIDERS: ADMIT Internal Medicine; ATTEND Internal Medicine